=== PATIENT | male | born 1950 | race Caucasian/White ===

== ENCOUNTER 2021-07-12 11:01 | Outpatient (REF) | payer MEDICARE, OTHER, SELFPAY ==
[2021-07-12 12:48] LABS: Prostate Specific Antigen 4.27 ng/mL (<0.05-4.0)
== END 2021-07-12 11:02 | disposition home or self-care (01) ==
LOC: HO.LAB 11:01
PROVIDERS: PCP Internal Medicine; Visit Provider Nurse Practitioner Family
DX: Z12.5 Encounter for screening for malignant neoplasm of prostate (principal)
CPT/HCPCS: 36415; 84153

== ENCOUNTER 2021-08-09 08:40 | Outpatient (REF) | payer MEDICARE, OTHER, SELFPAY ==
[2021-08-09 08:55] LABS: MANUAL DIFF FLAG NO
[2021-08-09 09:57] LABS: Basophils Percent Auto 0.4 % (0-2); Eosinophils Absolute Auto 0.5 X10*3/uL (0.0-0.4); Eosinophils Percent Auto 4.8 % (0-4); Hematocrit 40.8 % (42.0-52.0); Hemoglobin 12.8 g/dl (14.0-18.0); Imm Gran Abs Auto 0.06 X10*3/uL (0.00-0.03); Imm Gran Pct Auto 0.6 % (0.0-0.4); Lymphocytes Absolute Auto 2.4 X10*3/uL (1.2-4.9); Lymphocytes Percent Auto 22.5 % (20-40); Mean Corpuscular HGB Conc 31.4 g/dl (31.0-36.0); Mean Corpuscular Hemoglobin 27.2 pg (27.0-33.0); Mean Corpuscular Volume 86.6 fL (80.0-98.0); Mean Platelet Volume 12.5 fL (9.4-12.4); Monocytes Absolute Auto 1.2 X10*3/uL (0.1-1.2); Monocytes Percent Auto 10.8 % (2-11); Neutrophils Absolute Auto 6.6 x10*3/uL (2.0-8.3); Neutrophils Percent Auto 60.9 % (45-73); Platelet Count 233 X10*3/uL (160-400); Red Blood Count 4.71 X10*6/uL (4.60-5.80); Red Cell Distribution Width 13.3 % (11.0-16.0); White Blood Count 10.8 X10*3/uL (4.8-10.8)
[2021-08-09 10:12] LABS: Estimated Average Glucose 108 mg/dL; Hemoglobin A1c % 5.4 %
[2021-08-09 10:37] LABS: Alanine Aminotransferase 14 U/L (0-40); Albumin Level 4.2 g/dL (3.5-5.0); Alkaline Phosphatase 58 U/L (39-117); Anion Gap 14 (12-20); Aspartate Amino Transferase 19 U/L (5-37); Bilirubin Total 0.5 mg/dL (0.0-1.0); Blood Urea Nitrogen 32 mg/dL (9-16); Calcium 9.3 mg/dL (8.4-10.2); Carbon Dioxide 25 mmol/L (22-29); Chloride 107 mmol/L (96-108); Cholesterol 163 mg/dL; Estimated Glomerular Filt Rate 45; Glucose Fasting 119 mg/dL (60-99); HDL Cholesterol 32 mg/dL; LDL Cholesterol Calculated 112 mg/dl; Potassium 4.8 mmol/L (3.3-5.1); Sodium 141 mmol/L (135-145); Total Protein 7.1 g/dL (6.5-8.0); Triglycerides 95 mg/dL
[2021-08-09 10:47] LABS: Thyroid Stimulating Hormone 2.36 uIU/mL (0.32-4.0)
[2021-08-09 11:28] LABS: Creatinine Urine 107.15 mg/dL; Microalbum/Creatinine Ratio Ur 9.3 ug/mg cr
== END 2021-08-09 08:41 | disposition home or self-care (01) ==
LOC: HO.LAB 08:40
PROVIDERS: PCP Internal Medicine; Visit Provider Internal Medicine
DX: Z00.00 Encounter for general adult medical examination without abnormal findings (principal); E11.9 Type 2 diabetes mellitus without complications; E03.9 Hypothyroidism, unspecified
CPT/HCPCS: 36415; 80053; 80061; 82043; 83036; 84443; 85025

== ENCOUNTER 2022-05-02 12:05 | Emergency (ER) | payer MEDICARE, OTHER, SELFPAY ==
--- NOTE | ~2022-05-02 | XR_ITS ---
EXAMINATION: XR WRIST, RIGHT CLINICAL INFORMATION: Right wrist injury COMPARISON: None TECHNIQUE: PA, lateral, oblique, and scaphoid views of the right wrist. FINDINGS: No acute fracture line or dislocation. There is soft tissue swelling along the dorsal wrist and hand. A tiny calcification or bone fragment projects along the dorsal aspect of the carpometacarpal joints of the lateral projection, which may represent a degenerative calcification or sequela of prior avulsive injury, exact age uncertain. Similar finding adjacent to the radial margin of the trapezium. Joint spaces the wrist are maintained. Scapholunate interval is preserved. Small osteophytes at the first CMC joint compatible with mild osteoarthritis. Atherosclerotic vascular calcifications noted. 4 mm linear metallic foreign body is seen in the soft tissues along the radial aspect of the distal second metacarpal. XR/XR wrist RT min 3V IMPRESSION: 1. No acute fracture or dislocation. 2. Soft tissue swelling along the dorsal wrist and hand. Tiny calcification overlying the dorsal carpometacarpal joints of the lateral view, may be degenerative or sequela of an avulsive injury, exact acuity uncertain. 3. Small 4 mm metallic foreign body.
[2022-05-02 14:06] VITALS: BP 143/60; PULSE 73; RESP 20; TEMP 36.7; O2SAT 99; BMI 28.5
--- NOTE | 2022-05-02 15:48 | ED_ITS ---
HPI - Extremity Problem General Chief complaint: Extremity Injury, Upper Stated complaint: pain in L wrist Time Seen by Provider: 05/02/22 15:44 Source: patient Mode of arrival: ambulatory Limitations: no limitations History of Present Illness HPI Narrative: 72-year-old male with history of HTN, HLD, GERD, DM who presents to the ER for evaluation of right wrist pain for the last couple of days. He reports earlier in the week he was using a wrench to remove a log not from his truck when he slipped and his right wrist bent underneath. He had pain in the dorsal portion of his right wrist, worse with palpation and range of motion of the wrist. He has been applying ice and using a topical cream with some improvement. He had some ongoing pain today so decided to come to the ER for evaluation. He is right-hand dominant. He denies any open wounds or cuts from the incident. He denies any numbness, tingling, weakness. MD Complaint: joint pain Onset (ago): day(s) (4) Pain Consistency: constant Location: right and upper extremity Severity scale (1-10): 4 Quality: aching Radiation: none Relieving factors: cold therapy and rest Exacerbating factors: range of motion and palpation Associated symptoms: denies other symptoms Related Data Previous Rx's Medication Instructions Recorded lovastatin 20 mg tablet 20 mg PO DAILY #90 tabs 05/02/21 triamcinolone acetonide 0.5 % 1 appl topical TID #15 grams 05/09/21 topical cream lisinopril 40 mg tablet 40 mg PO DAILY #90 tabs 06/24/21 omeprazole 20 mg capsule,delayed 20 mg PO DAILY #90 caps 06/24/21 release cetirizine 10 mg tablet 10 mg PO DAILY PRN allergy 10/14/21 symptoms #90 tabs amlodipine 10 mg tablet 10 mg PO DAILY #90 tabs 10/30/21 hydrochlorothiazide 25 mg tablet 25 mg PO DAILY #90 tabs 10/30/21 glipizide 2.5 mg tablet, extended 2.5 mg PO .EVERY OTHER DAY #30 tabs 03/14/22 release 24 hr Allergies Allergy/AdvReac Type Severity Reaction Status Date / Time No Known Allergies Allergy Verified 11/22/21 09:57 Review of Systems Review of Systems: Constitutional: No Fever, No Chills Cardiovascular: No Chest Pain, No SOB Musculoskeletal: + joint pain, No Myalgias Skin: No Skin Lesions, No rash Neuro: No Weakness, No Numbness Heme/Lymph: No Bruising, No Lymphadenopathy PMFSH Past Medical History Medical History (Updated 05/02/22 @ 15:58 by VILMA Lau) Diabetes mellitus with coincident hypertension Hypertension Surgical History History of cataract surgery History of drainage of abscess Family History Family History Father Alzheimers disease Mother Diabetes Brother No problems noted. Sister No problems noted. Son No problems noted. Social History Social History Housing: House Alcohol intake: never Patient Tobacco Use Status: Former Tobacco user Tobacco use type: Cigarette e-Cigarette/Vaping Use: Never Used Second Hand Smoke Exposure: No service: Yes Current occupational status: retired Cognitive needs: No Hearing needs: No Vision needs: No Physical Exam Vital Signs: Vital Signs: Last Vital Signs Temp 98.1 F 05/02/22 14:06 Pulse 73 05/02/22 14:06 Resp 20 05/02/22 14:06 BP 143/60 H 05/02/22 14:06 Pulse Ox 99 05/02/22 14:06 O2 Del Method 05/02/22 14:06 BMI result Body Mass Index 28.5 Appearance: Alert. Oriented X3. No acute distress. HEENT: normal inspection CVS: Normal heart rate and rhythm. Pulses normal. Respiratory: No respiratory distress. Skin: Skin warm and dry. Normal skin color. Normal skin turgor. No rashes. Extremities: Right hand with minimal dorsal swelling, mild dorsal right wrist swelling. Normal range of motion with pain upon flexion. Mild tenderness of the dorsal wrist. No point tenderness. Normal range of motion. Normal strength. No tenderness of the metacarpals. Neurovascularly intact distally. 2+ radial pulse. No open wounds on the dorsum of the hand. Neuro: Oriented X 3. No motor deficit. No sensory deficit. 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 He is right-hand dominant. He denies any numbness, weakness, tingling. X-ray does not show any acute fracture dislocation. There is some soft tissue swelling along the dorsal wrist and hand which is evident on examination. There is a small 4 mm metallic foreign body at the base of the 1st metacarpal. There is no open wounds over this area. It is palpable and mobile. Does not appear to be new. Will not excise today. It is chronic. No infection. Patient placed in a volar velcro wrist splint with improvement in his pain. He was advised to take anti-inflammatories and Tylenol for pain. He will ice, and elevate. He will follow-up with orthopedics if his pain is not improved with conservative measures. He is stable for discharge home. Patient agrees with plan. Discharge Plan Discharge Clinical Impression: Sprain and strain of wrist Patient Disposition: Home, Self-Care Instructions: Wrist Sprain (ED) Additional Instructions: Your x-ray today did not show any acute fractures. Further applied wrist splint as needed for pain and discomfort. Recommend continuing to ice and elevate. Limit use of the right hand until the pain is improved. Take Motrin and Tylenol as needed for pain Follow-up with your doctor. If you are still having pain in 1 week, recommend following up with orthopedics for further evaluation. Name and number below. If you develop new or worsening symptoms call 911 or come back to the ER for further evaluation. Prescriptions: No Action lovastatin 20 mg tablet 20 mg PO DAILY Qty: 90 8RF omeprazole 20 mg capsule,delayed release(DR/EC) 20 mg PO DAILY Qty: 90 8RF lisinopril 40 mg tablet 40 mg PO DAILY Qty: 90 8RF cetirizine 10 mg tablet 10 mg PO DAILY PRN (Reason: allergy symptoms) Qty: 90 8RF hydrochlorothiazide 25 mg tablet 25 mg PO DAILY Qty: 90 8RF amlodipine 10 mg tablet 10 mg PO DAILY Qty: 90 8RF glipizide 2.5 mg tablet extended release 24 hr 2.5 mg PO .EVERY OTHER DAY Qty: 30 8RF triamcinolone acetonide 0.5 % cream 1 appl topical TID Qty: 15 2RF Referrals: Jose Juan Quijano MD [Physician] - (right wrist pain s/p injury)
== END 2022-05-02 16:05 | disposition home or self-care (01) ==
PROVIDERS: Emergency Provider Emergency Medicine; PCP Internal Medicine
DX: S63.501A Unspecified sprain of right wrist, initial encounter (principal); M25.531 Pain in right wrist; Y33.XXXA Other specified events, undetermined intent, initial encounter; Y93.9 Activity, unspecified; Y92.9 Unspecified place or not applicable; Y99.9 Unspecified external cause status; Z79.899 Other long term (current) drug therapy
CPT/HCPCS: 29125; 73110; 99282; 99283

== ENCOUNTER 2022-12-12 07:07 | Outpatient (REF) | payer MEDICARE, OTHER, SELFPAY ==
[2022-12-12 07:21] LABS: MANUAL DIFF FLAG NO
[2022-12-12 07:23] LABS: Basophils Absolute Auto 0.1 X10*3/uL (0.0-0.2); Basophils Percent Auto 0.7 % (0-2); Eosinophils Absolute Auto 0.5 X10*3/uL (0.0-0.4); Eosinophils Percent Auto 5.6 % (0-4); Hematocrit 37.1 % (42.0-52.0); Hemoglobin 11.9 g/dl (14.0-18.0); Imm Gran Abs Auto 0.04 X10*3/uL (0.00-0.03); Imm Gran Pct Auto 0.5 % (0.0-0.4); Lymphocytes Absolute Auto 3.2 X10*3/uL (1.2-4.9); Lymphocytes Percent Auto 38.7 % (20-40); Mean Corpuscular HGB Conc 32.1 g/dl (31.0-36.0); Mean Corpuscular Hemoglobin 27.7 pg (27.0-33.0); Mean Corpuscular Volume 86.5 fL (80.0-98.0); Mean Platelet Volume 11.2 fL (9.4-12.4); Monocytes Absolute Auto 0.9 X10*3/uL (0.1-1.2); Monocytes Percent Auto 11.3 % (2-11); Neutrophils Absolute Auto 3.5 x10*3/uL (2.0-8.3); Neutrophils Percent Auto 43.2 % (45-73); Platelet Count 247 X10*3/uL (160-400); Red Blood Count 4.29 X10*6/uL (4.60-5.80); Red Cell Distribution Width 13.1 % (11.0-16.0); White Blood Count 8.2 X10*3/uL (4.8-10.8)
[2022-12-12 07:34] LABS: Estimated Average Glucose 117 mg/dL; Hemoglobin A1c % 5.7 %
[2022-12-12 08:15] LABS: Alanine Aminotransferase 11 U/L (0-40); Albumin Level 3.9 g/dL (3.5-5.0); Alkaline Phosphatase 65 U/L (39-117); Anion Gap 13 (12-20); Aspartate Amino Transferase 18 U/L (5-37); Bilirubin Total 0.7 mg/dL (0.0-1.0); Blood Urea Nitrogen 31 mg/dL (9-16); Calcium 8.7 mg/dL (8.4-10.2); Carbon Dioxide 26 mmol/L (22-29); Chloride 108 mmol/L (96-108); Cholesterol 143 mg/dL; Estimated Glomerular Filt Rate 41; Glucose Fasting 104 mg/dL (60-99); HDL Cholesterol 25 mg/dL; LDL Cholesterol Calculated 102 mg/dl; Potassium 4.5 mmol/L (3.3-5.1); Sodium 142 mmol/L (135-145); Total Protein 6.5 g/dL (6.5-8.0); Triglycerides 83 mg/dL
[2022-12-12 08:20] LABS: Thyroid Stimulating Hormone 2.72 uIU/mL (0.32-4.0)
[2022-12-12 09:37] LABS: Creatinine Urine 157.45 mg/dL; Microalbum/Creatinine Ratio Ur 16.5 ug/mg cr
== END 2022-12-12 07:08 | disposition home or self-care (01) ==
LOC: HO.LAB 07:07
PROVIDERS: PCP Internal Medicine; Visit Provider Internal Medicine
DX: N28.9 Disorder of kidney and ureter, unspecified (principal); D64.9 Anemia, unspecified; E03.9 Hypothyroidism, unspecified; E78.5 Hyperlipidemia, unspecified; E11.69 Type 2 diabetes mellitus with other specified complication; E66.01 Morbid (severe) obesity due to excess calories; E11.65 Type 2 diabetes mellitus with hyperglycemia
CPT/HCPCS: 36415; 80053; 80061; 82043; 83036; 84443; 85025

== ENCOUNTER 2023-03-16 07:04 | Outpatient (REF) | payer MEDICARE, OTHER, SELFPAY | END 2023-03-16 07:05 | disposition home or self-care (01) | LOC: HO.LAB 07:04 | PROVIDERS: PCP Internal Medicine; Visit Provider Internal Medicine | DX: Z00.00 Encounter for general adult medical examination without abnormal findings (principal); Z12.5 Encounter for screening for malignant neoplasm of prostate; E78.5 Hyperlipidemia, unspecified; R73.9 Hyperglycemia, unspecified | CPT/HCPCS: 36415; 80061; 82947; 83036; 84153 ==

== ENCOUNTER 2023-03-19 09:31 | Outpatient (AMB) | payer MEDICARE, SELFPAY ==
[2023-03-19 09:34] VITALS: BP 126/70; PULSE 73; O2SAT 96; BMI 27.6
--- NOTE | 2023-03-19 09:34 | MHC.PC.OV ---
Vital Signs 03/19/23 09:34 Height 5 ft 7 in Weight 176 lb 2 oz BMI 27.6 BP 126/70 Blood Pressure Location Lt brachial Position Sitting Pulse 73 Pulse Source Pulse Oximeter Pulse Oximetry (%) 96 Oxygen Delivery Method Room Air Intake Visit Reasons: 3 month f/u Casing Blower Required: No Accompanied by: Self / Same As Patient Allergies No Known Allergies Allergy (Verified 03/19/23 09:35) Medication List - Last Reconciled 03/19/23 by Ricky Lopez MD amlodipine 10 mg PO DAILY cetirizine 10 mg PO DAILY PRN glipizide ER 2.5 mg PO .EVERY OTHER DAY hydrochlorothiazide 25 mg PO DAILY lisinopril 40 mg PO DAILY lovastatin 20 mg PO DAILY omeprazole 20 mg PO DAILY triamcinolone acetonide 0.5% 1 appl topical TID Tobacco use date assessed: 03/19/23 Fall risk assessment: No Falls in past year Last assessed Fall Risk: 03/19/23 Dental Screening Dental Screen Date: 03/19/23 Did you have a dental visit in the last 12 months?: No Did you have a dental problem in the last 6 months where you did not have access to dental care?: No Was dental information given to patient?: No HPI 3 month f/u HPI Aggravating or associated factors DM HTN and hyperlipidemia; doing well; stable COUNT INCLUDES THE [facility] Medical History (Updated 09/15/22 @ 13:21 by Ricky Lopez MD) Diabetes mellitus with coincident hypertension Hypertension Surgical History History of cataract surgery History of drainage of abscess Family History Father Alzheimers disease Mother Diabetes Brother No problems noted. Sister No problems noted. Son No problems noted. Social History Housing: House Alcohol intake: never Patient Tobacco Use Status: Former Tobacco user Tobacco use type: Cigarette e-Cigarette/Vaping Use: Never Used Second Hand Smoke Exposure: No service: Yes Current occupational status: retired Cognitive needs: No Hearing needs: No Vision needs: No Questionnaire PHQ-9 Over the last 2 weeks, how often have you been bothered by any of the following problems? 1. Little interest or pleasure in doing things: not at all 2. Feeling down, depressed, or hopeless: not at all 3. Trouble falling or staying asleep, or sleeping too much: not at all 4. Feeling tired or having little energy: not at all 5. Poor appetite or overeating: not at all 6. Feeling bad about yourself - or that you are a failure or have let yourself or your family down: not at all 7. Trouble concentrating on things, such as reading the newspaper or watching television: not at all 8. Moving or speaking so slowly that other people could have noticed. Or the opposite - being so fidgety or restless that you have been moving around a lot more than usual: not at all 9. Thoughts that you would be better off or of hurting yourself in some way: not at all Total score: 0 Source: Developed by Drs. Angel Witt, Jayla Brunson, Pranay Sewell and colleagues, with an educational roshan from [employer]. Thrive Questionnaire Date Thrive assessed: 03/19/23 I am a: Patient What is your living situation today?: I have a steady place to live Within the past 12 months, did the food you bought not last and you didn't have the money to get more?: Never true Within the past 12 months, did you worry whether your food would run out before you got money to buy more?: Never true Do you have trouble paying for medicines?: No Do you have trouble getting transportation to medical appointments?: No Do you have trouble paying your heating and electricity bill?: No Do you have trouble taking care of your child, family member or friend?: No Do you have trouble with day-to-day activities such as bathing, preparing meals, shopping, managing finances, etc.?: No Are you currently unemployed and looking for a job?: No Are you interested in more education?: No Please select the resources that you would like help with: None Currently or been in a relationship where the following occur: no concerns reported AUDIT C Alcohol Use Questionnaire (AUDIT-C) 1. How often do you have a drink containing alcohol?: Never Total Score: 0 Score Reviewed/Action Taken: Yes CHUCK-7 AMB Questionnaire CHUCK-7 Date CHUCK - 7 assessed: 03/19/23 Feeling nervous, anxious, or on edge: 0 = Not at all Not being able to stop or control worryin = Not at all Worrying too much about different things: 0 = Not at all Trouble relaxin = Not at all Being so restless that it is hard to sit still: 0 = Not at all Becoming easily annoyed or irritable: 0 = Not at all Feeling afraid as if something awful might happen: 0 = Not at all Total CHUCK-7 score (0-4 normal; 5-9 mild; 10-14 moderate; 15-21 severe): 0 Source: Developed by Drs. Angel Witt, Jayla Brunson, Pranay Sewell and colleagues, with an educational roshan from [employer]. Review of Systems Const Denies chills, Denies headache(s) and Denies weight loss ENT Denies headache(s) Card Denies chest pain, Denies syncope, Denies irregular heart rhythm and Denies dyspnea Resp Denies chest congestion, Denies cough and Denies dyspnea GI Denies abdominal pain, Denies change in stool character, Denies nausea and Denies vomiting Musc Denies deformity and Denies joint swelling Neuro Denies syncope and Denies headache(s) Physical exam (Primary Care) Vital Signs: Last Vital Signs Pulse 73 03/19/23 09:34 BP 126/70 03/19/23 09:34 Pulse Ox 96 03/19/23 09:34 Oxygen Delivery Method Room Air 03/19/23 09:34 BMI result Body Mass Index 27.6 Tobacco/Smoking Status: Tobacco use Status Tobacco use date assessed 03/19/23 03/19/23 09:39 Patient Tobacco Use Status Former Tobacco user 03/19/23 09:39 Tobacco use type Cigarette 03/19/23 09:39 e-Cigarette/Vaping Use Never Used 03/19/23 09:39 PHQ-9: PHQ-9 Score PHQ-9: Total score 0 03/19/23 09:39 Thrive Assessment: Date of Thrive Assessment Date Thrive assessed 03/19/23 03/19/23 09:39 Currently or been in a relationship where the following occur: no concerns reported Const General: cooperative, healthy appearing and comfortable Resp Effort & Inspection: normal respiratory effort Auscultation: clear to auscultation bilaterally Percussion: percussion normal Cardio Jugular venous distension: no JVD Rate: regular rate Rhythm: regular rhythm GI Inspection: Yes normal to inspection Assessment and Plan Assessment & Plan (1) Diabetes mellitus with coincident hypertension: Code(s): E11.9 - Type 2 diabetes mellitus without complications; I10 - Essential (primary) hypertension Plan: stable; same rx (2) Hyperlipidemia: Code(s): E78.5 - Hyperlipidemia, unspecified Plan: stable; same rx (3) Hypertension: Code(s): I10 - Essential (primary) hypertension Plan: stable; same rx Orders: Orders Glucose Fasting Today R73.9 - Hyperglycemia, unspecified Hemoglobin A1c Today R73.9 - Hyperglycemia, unspecified Lipid Panel Today E78.5 - Hyperlipidemia, unspecified Coding Level of Care Code Est Pt Level 4 (57603) Diagnoses Diabetes mellitus with coincident hypertension E11.9; I10 Hyperlipidemia E78.5 Hypertension I10
== END 2023-03-19 09:55 | disposition home or self-care (01) ==
PROVIDERS: Visit Provider Internal Medicine
DX: E11.9 Type 2 diabetes mellitus without complications (principal); I10 Essential (primary) hypertension; E78.5 Hyperlipidemia, unspecified
CPT/HCPCS: 99214

== ENCOUNTER 2023-06-18 07:47 | Outpatient (REF) | payer MEDICARE, OTHER, SELFPAY ==
[2023-06-18 09:12] LABS: Estimated Average Glucose 108 mg/dL; Hemoglobin A1c % 5.4 % (<6.0)
[2023-06-18 09:35] LABS: Cholesterol 146 mg/dL (<200); Glucose Fasting 103 mg/dL (60-99); HDL Cholesterol 30 mg/dL (>40); LDL Cholesterol Calculated 102 mg/dL (<100); Triglycerides 71 mg/dL (<150)
== END 2023-06-18 07:48 | disposition home or self-care (01) ==
LOC: HO.LAB 07:47
PROVIDERS: PCP Internal Medicine; Visit Provider Internal Medicine
DX: R73.9 Hyperglycemia, unspecified (principal); E78.5 Hyperlipidemia, unspecified
CPT/HCPCS: 36415; 80061; 82947; 83036

== ENCOUNTER 2023-06-19 09:47 | Outpatient (AMB) | payer MEDICARE, SELFPAY ==
[2023-06-19 09:48] VITALS: BP 138/66; PULSE 756; O2SAT 98; BMI 27.4
--- NOTE | 2023-06-19 09:48 | MHC.PC.OV ---
Vital Signs 06/19/23 09:48 Height 5 ft 7 in Weight 175 lb BMI 27.4 BP 138/66 Blood Pressure Location Lt brachial Position Sitting Pulse 756 H Pulse Source Pulse Oximeter Pulse Oximetry (%) 98 Oxygen Delivery Method Room Air Intake Visit Reasons: 3 month f/u Allergies No Known Allergies Allergy (Verified 06/19/23 09:48) Medication List - Last Reconciled 06/19/23 by Ricky Lopez MD amlodipine 10 mg PO DAILY cetirizine 10 mg PO DAILY PRN glipizide ER 2.5 mg PO .EVERY OTHER DAY hydrochlorothiazide 25 mg PO DAILY lisinopril 40 mg PO DAILY lovastatin 20 mg PO DAILY omeprazole 20 mg PO DAILY triamcinolone acetonide 0.5% 1 appl topical TID Tobacco use date assessed: 03/19/23 Fall risk assessment: No Falls in past year Last assessed Fall Risk: 06/19/23 Dental Screening Dental Screen Date: 06/19/23 Did you have a dental visit in the last 12 months?: No Did you have a dental problem in the last 6 months where you did not have access to dental care?: No Was dental information given to patient?: Patient has dentist HPI 3 month f/u HPI Details HTN hyperlip and DM; compliant; labs fine [facility] Medical History Diabetes mellitus with coincident hypertension Hypertension Surgical History History of drainage of abscess History of cataract surgery Family History Father Alzheimers disease Mother Diabetes Brother No problems noted. Sister No problems noted. Son No problems noted. Social History Housing: House Alcohol intake: never Patient Tobacco Use Status: Former Tobacco user Tobacco use type: Cigarette e-Cigarette/Vaping Use: Never Used Second Hand Smoke Exposure: No service: Yes Current occupational status: retired Cognitive needs: No Hearing needs: No Vision needs: No Questionnaire PHQ-9 Over the last 2 weeks, how often have you been bothered by any of the following problems? 1. Little interest or pleasure in doing things: not at all 2. Feeling down, depressed, or hopeless: not at all 3. Trouble falling or staying asleep, or sleeping too much: not at all 4. Feeling tired or having little energy: not at all 5. Poor appetite or overeating: not at all 6. Feeling bad about yourself - or that you are a failure or have let yourself or your family down: not at all 7. Trouble concentrating on things, such as reading the newspaper or watching television: not at all 8. Moving or speaking so slowly that other people could have noticed. Or the opposite - being so fidgety or restless that you have been moving around a lot more than usual: not at all 9. Thoughts that you would be better off or of hurting yourself in some way: not at all Total score: 0 Source: Developed by Drs. Angel Witt, Jayla Brunson, Pranay Sewell and colleagues, with an educational roshan from [employer]. Thrive Questionnaire Date Thrive assessed: 03/19/23 AUDIT C Alcohol Use Questionnaire (AUDIT-C) 1. How often do you have a drink containing alcohol?: Never Total Score: 0 Score Reviewed/Action Taken: Yes CHUCK-7 AMB Questionnaire CHUCK-7 Date CHUCK - 7 assessed: 03/19/23 Source: Developed by Drs. Angel Witt, Jayla Brunson, Pranay Sewell and colleagues, with an educational roshan from [employer]. Review of Systems Const Denies chills, Denies headache(s) and Denies weight loss ENT Denies headache(s) Card Denies chest pain, Denies syncope, Denies irregular heart rhythm and Denies dyspnea Resp Denies chest congestion, Denies cough and Denies dyspnea GI Denies abdominal pain, Denies change in stool character, Denies nausea and Denies vomiting Musc Denies deformity and Denies joint swelling Neuro Denies syncope and Denies headache(s) Physical exam (Primary Care) Vital Signs: Last Vital Signs Pulse 756 H 06/19/23 09:48 BP 138/66 06/19/23 09:48 Pulse Ox 98 06/19/23 09:48 Oxygen Delivery Method Room Air 06/19/23 09:48 BMI result Body Mass Index 27.4 Tobacco/Smoking Status: Tobacco use Status Tobacco use date assessed 03/19/23 06/19/23 09:52 Patient Tobacco Use Status Former Tobacco user 06/19/23 09:52 Tobacco use type Cigarette 06/19/23 09:52 e-Cigarette/Vaping Use Never Used 06/19/23 09:52 PHQ-9: PHQ-9 Score PHQ-9: Total score 0 06/19/23 09:52 Thrive Assessment: Date of Thrive Assessment Date Thrive assessed 03/19/23 06/19/23 09:52 Const General: cooperative, comfortable, no acute distress and alert Neck Neck: Yes no lymphadenopathy Thyroid: Thyroid normal Resp Effort & Inspection: normal respiratory effort Auscultation: clear to auscultation bilaterally Percussion: percussion normal Cardio Jugular venous distension: no JVD Palpation: normal PMI Rate: regular rate Rhythm: regular rhythm Heart sounds: S1 normal heart sound present and S2 normal heart sound present GI Inspection: Yes normal to inspection Palpation (GI): No hepatosplenomegaly present Skin General skin exam: no rashes or lesions noted Extrem General: Yes no clubbing, cyanosis or edema Assessment and Plan Assessment & Plan (1) Diabetes mellitus with coincident hypertension: Code(s): E11.9 - Type 2 diabetes mellitus without complications; I10 - Essential (primary) hypertension Plan: stable; same rx (2) Hyperlipidemia: Code(s): E78.5 - Hyperlipidemia, unspecified Plan: stable; same rx (3) Hypertension: Code(s): I10 - Essential (primary) hypertension Plan: stable; same rx Orders: Orders Complete Blood Count Auto Diff Today D64.9 - Anemia, unspecified Microalbumin, Random (w Creat) Today E11.69 - Type 2 diabetes mellitus with other specified complication, E66.01 - Morbid (severe) obesity due to excess calories Lipid Panel Today E78.5 - Hyperlipidemia, unspecified Comprehensive [place]. Panel Fast Today N28.9 - Disorder of kidney and ureter, unspecified Coding Level of Care Code Est Pt Level 4 (02587) Diagnoses Diabetes mellitus with coincident hypertension E11.9; I10 Hyperlipidemia E78.5 Hypertension I10
== END 2023-06-19 10:01 | disposition home or self-care (01) ==
PROVIDERS: PCP Internal Medicine; Visit Provider Internal Medicine
DX: E11.9 Type 2 diabetes mellitus without complications (principal); I10 Essential (primary) hypertension; E78.5 Hyperlipidemia, unspecified
CPT/HCPCS: 99214

== ENCOUNTER 2023-09-17 07:17 | Outpatient (REF) | payer MEDICARE, SELFPAY ==
[2023-09-17 07:39] LABS: MANUAL DIFF FLAG NO
[2023-09-17 08:36] LABS: Basophils Absolute Auto 0.1 X10*3/uL (0.0-0.2); Basophils Percent Auto 0.6 % (0-2); Eosinophils Absolute Auto 0.7 X10*3/uL (0.0-0.4); Eosinophils Percent Auto 7.6 % (0-4); Hematocrit 36.2 % (42.0-52.0); Hemoglobin 11.6 g/dl (14.0-18.0); Imm Gran Abs Auto 0.03 X10*3/uL (0.00-0.03); Imm Gran Pct Auto 0.3 % (0.0-0.4); Lymphocytes Absolute Auto 3.2 X10*3/uL (1.2-4.9); Lymphocytes Percent Auto 32.7 % (20-40); Mean Corpuscular Hemoglobin 27.7 pg (27.0-33.0); Mean Corpuscular Volume 86.4 fL (80.0-98.0); Mean Platelet Volume 12.1 fL (9.4-12.4); Monocytes Absolute Auto 1.2 X10*3/uL (0.1-1.2); Monocytes Percent Auto 12.3 % (2-11); Neutrophils Absolute Auto 4.5 x10*3/uL (2.0-8.3); Neutrophils Percent Auto 46.5 % (45-73); Platelet Count 220 X10*3/uL (160-400); Red Blood Count 4.19 X10*6/uL (4.60-5.80); Red Cell Distribution Width 13.4 % (11.0-16.0); White Blood Count 9.6 X10*3/uL (4.8-10.8)
[2023-09-17 09:07] LABS: Creatinine Urine 160.38 mg/dL; Microalbum/Creatinine Ratio Ur 16.2 ug/mg cr (<30)
[2023-09-17 09:11] LABS: Alanine Aminotransferase 9 U/L (0-40); Albumin Level 3.9 g/dL (3.5-5.0); Alkaline Phosphatase 60 U/L (39-117); Anion Gap 13 (12-20); Aspartate Amino Transferase 15 U/L (5-37); Bilirubin Total 0.8 mg/dL (0.0-1.0); Blood Urea Nitrogen 29 mg/dL (9-16); Carbon Dioxide 27 mmol/L (22-29); Chloride 107 mmol/L (96-108); Cholesterol 132 mg/dL (<200); Estimated Glomerular Filt Rate 45; Glucose Fasting 120 mg/dL (60-99); HDL Cholesterol 30 mg/dL (>40); LDL Cholesterol Calculated 84 mg/dL (<100); Potassium 4.4 mmol/L (3.3-5.1); Sodium 143 mmol/L (135-145); Total Protein 6.9 g/dL (6.5-8.0); Triglycerides 91 mg/dL (<150)
== END 2023-09-17 07:18 | disposition home or self-care (01) ==
LOC: HO.LAB 07:17
PROVIDERS: PCP Internal Medicine; Visit Provider Internal Medicine
DX: E11.69 Type 2 diabetes mellitus with other specified complication (principal); E66.01 Morbid (severe) obesity due to excess calories; E78.5 Hyperlipidemia, unspecified; D64.9 Anemia, unspecified; N28.9 Disorder of kidney and ureter, unspecified
CPT/HCPCS: 36415; 80053; 80061; 82043; 82570; 85025

== ENCOUNTER 2023-09-22 10:19 | Outpatient (AMB) | payer MEDICARE, SELFPAY ==
[2023-09-22 10:25] VITALS: BP 140/70; PULSE 82; O2SAT 99; BMI 26.9
--- NOTE | 2023-09-22 10:25 | MHC.PC.OV ---
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 Ribbon Tier: Not Required per policy Accompanied by: Self / Same As Patient Allergies No Known Allergies Allergy (Verified 09/22/23 10:25) Medication List - Last Reconciled 09/22/23 by Ricky Lopez MD amlodipine 10 mg PO DAILY cetirizine 10 mg PO DAILY PRN glipizide ER 2.5 mg PO .EVERY OTHER DAY hydrochlorothiazide 25 mg PO DAILY lisinopril 40 mg PO DAILY lovastatin 20 mg PO DAILY omeprazole 20 mg PO DAILY triamcinolone acetonide 0.5% 1 appl topical TID Tobacco use date assessed: 09/22/23 Fall risk assessment: No Falls in past year Last assessed Fall Risk: 09/22/23 Dental Screening Dental Screen Date: 09/22/23 Did you have a dental visit in the last 12 months?: Yes Did you have a dental problem in the last 6 months where you did not have access to dental care?: No Was dental information given to patient?: Patient has dentist HPI 3 month f/u HPI Details HTN DM and hyperlipidemia; doing well; compliant [facility] Medical History Diabetes mellitus with coincident hypertension Hypertension Surgical History History of drainage of abscess History of cataract surgery Family History Father Alzheimers disease Mother Diabetes Brother No problems noted. Sister No problems noted. Son No problems noted. Social History Housing: House Alcohol intake: never Patient Tobacco Use Status: Former Tobacco user Tobacco use type: Cigarette e-Cigarette/Vaping Use: Never Used Second Hand Smoke Exposure: No service: Yes Current occupational status: retired Cognitive needs: No Hearing needs: No Vision needs: Yes Questionnaire PHQ-9 Over the last 2 weeks, how often have you been bothered by any of the following problems? 1. Little interest or pleasure in doing things: not at all 2. Feeling down, depressed, or hopeless: not at all 3. Trouble falling or staying asleep, or sleeping too much: not at all 4. Feeling tired or having little energy: not at all 5. Poor appetite or overeating: not at all 6. Feeling bad about yourself - or that you are a failure or have let yourself or your family down: not at all 7. Trouble concentrating on things, such as reading the newspaper or watching television: not at all 8. Moving or speaking so slowly that other people could have noticed. Or the opposite - being so fidgety or restless that you have been moving around a lot more than usual: not at all 9. Thoughts that you would be better off or of hurting yourself in some way: not at all Total score: 0 Source: Developed by Drs. Angel Witt, Jayla Brunson, Pranay Sewell and colleagues, with an educational roshan from [employer]. Thrive Questionnaire Date Thrive assessed: 09/22/23 I am a: Patient What is your living situation today?: I have a steady place to live Within the past 12 months, did the food you bought not last and you didn't have the money to get more?: Never true Within the past 12 months, did you worry whether your food would run out before you got money to buy more?: Never true Do you have trouble paying for medicines?: No Do you have trouble getting transportation to medical appointments?: No Do you have trouble paying your heating and electricity bill?: No Do you have trouble taking care of your child, family member or friend?: No Do you have trouble with day-to-day activities such as bathing, preparing meals, shopping, managing finances, etc.?: No Are you currently unemployed and looking for a job?: No Are you interested in more education?: No Please select the resources that you would like help with: None AUDIT C Alcohol Use Questionnaire (AUDIT-C) 1. How often do you have a drink containing alcohol?: Never Total Score: 0 Score Reviewed/Action Taken: Yes CHUCK-7 AMB Questionnaire CHUCK-7 Date CHUCK - 7 assessed: 01/16/24 Feeling nervous, anxious, or on edge: 0 = Not at all Not being able to stop or control worryin = Not at all Worrying too much about different things: 0 = Not at all Trouble relaxin = Not at all Being so restless that it is hard to sit still: 0 = Not at all Becoming easily annoyed or irritable: 0 = Not at all Feeling afraid as if something awful might happen: 0 = Not at all Total CHUCK-7 score (0-4 normal; 5-9 mild; 10-14 moderate; 15-21 severe): 0 Source: Developed by Drs. Angel Witt, Jayla Brunson, Pranay Sewell and colleagues, with an educational roshan from [employer]. Review of Systems Const Denies chills, Denies headache(s) and Denies weight loss ENT Denies headache(s) Card Denies chest pain, Denies syncope, Denies irregular heart rhythm and Denies dyspnea Resp Denies chest congestion, Denies cough and Denies dyspnea GI Denies abdominal pain, Denies change in stool character, Denies nausea and Denies vomiting Musc Denies deformity and Denies joint swelling Neuro Denies syncope and Denies headache(s) Physical exam (Primary Care) Vital Signs: Last Vital Signs Pulse 82 09/22/23 10:25 BP 140/70 H 09/22/23 10:25 Pulse Ox 99 09/22/23 10:25 Oxygen Delivery Method Room Air 09/22/23 10:25 BMI result Body Mass Index 26.9 Tobacco/Smoking Status: Tobacco use Status Tobacco use date assessed 09/22/23 09/22/23 10:27 Patient Tobacco Use Status Former Tobacco user 09/22/23 10:27 Tobacco use type Cigarette 09/22/23 10:27 e-Cigarette/Vaping Use Never Used 09/22/23 10:27 PHQ-9: PHQ-9 Score PHQ-9: Total score 0 09/22/23 10:38 Thrive Assessment: Date of Thrive Assessment Date Thrive assessed 09/22/23 09/22/23 10:27 Const General: cooperative, comfortable, no acute distress and alert Neck Neck: Yes no lymphadenopathy Thyroid: Thyroid normal Resp Effort & Inspection: normal respiratory effort Auscultation: clear to auscultation bilaterally Percussion: percussion normal Cardio Jugular venous distension: no JVD Palpation: normal PMI Rate: regular rate Rhythm: regular rhythm Heart sounds: S1 normal heart sound present and S2 normal heart sound present GI Inspection: Yes normal to inspection Palpation (GI): No hepatosplenomegaly present Skin General skin exam: no rashes or lesions noted Extrem General: Yes no clubbing, cyanosis or edema Results AMB Hemoglobin A1c AMB Hemoglobin A1c 5.8 % Last Edit by JOANN Marvin on 09/22/23 10:39 Results Reviewed Results Reviewed: Laboratory Last Values Hgb A1c (Clinic) 5.8 % (4.0-6.0) 09/22/23 10:27 Assessment and Plan Assessment & Plan (1) Diabetes mellitus with coincident hypertension: Code(s): E11.9 - Type 2 diabetes mellitus without complications; I10 - Essential (primary) hypertension Plan: stable; same rx (2) Hyperlipidemia: Code(s): E78.5 - Hyperlipidemia, unspecified Plan: stable; same rx (3) Hypertension: Code(s): I10 - Essential (primary) hypertension Plan: stable; same rx Orders: Orders AMB Hemoglobin A1c Today E11.9 - Type 2 diabetes mellitus without complications, I10 - Essential (primary) hypertension Lipid Panel Today E78.5 - Hyperlipidemia, unspecified Glucose Fasting Today R73.9 - Hyperglycemia, unspecified Hemoglobin A1c Today R73.9 - Hyperglycemia, unspecified Medications: New triamcinolone acetonide 0.5% 1 appl topical TID 15 grams 3RF amoxicillin-pot clavulanate 500-125 mg (Augmentin) 1 tab PO BID 10 tabs 0RF Coding Level of Care Code Est Pt Level 4 (50952) Diagnoses Diabetes mellitus with coincident hypertension E11.9; I10 Hyperlipidemia E78.5 Hypertension I10
== END 2023-09-22 10:43 | disposition home or self-care (01) ==
PROVIDERS: PCP Internal Medicine; Visit Provider Internal Medicine
DX: E11.69 Type 2 diabetes mellitus with other specified complication (principal); I10 Essential (primary) hypertension; E78.5 Hyperlipidemia, unspecified
CPT/HCPCS: 83036; 99214

== ENCOUNTER 2023-12-21 07:10 | Outpatient (REF) | payer MEDICARE, MEDICAID, SELFPAY ==
[2023-12-21 07:43] LABS: Estimated Average Glucose 117 mg/dL; Hemoglobin A1c % 5.7 % (<6.0)
[2023-12-21 07:45] LABS: Cholesterol 159 mg/dL (<200); Glucose Fasting 117 mg/dL (60-99); HDL Cholesterol 31 mg/dL (>40); LDL Cholesterol Calculated 109 mg/dL (<100); Triglycerides 97 mg/dL (<150)
== END 2023-12-21 07:11 | disposition home or self-care (01) ==
LOC: HO.LAB 07:10
PROVIDERS: PCP Internal Medicine; Visit Provider Internal Medicine
DX: R73.9 Hyperglycemia, unspecified (principal); E78.5 Hyperlipidemia, unspecified
CPT/HCPCS: 36415; 80061; 82947; 83036

== ENCOUNTER 2023-12-23 10:38 | Outpatient (AMB) | payer MEDICARE, MEDICAID, SELFPAY ==
[2023-12-23 10:42] VITALS: BP 132/58; PULSE 71; O2SAT 97; BMI 26.6
--- NOTE | 2023-12-23 10:42 | A.OFFPC_ITS ---
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 Allergies No Known Allergies Allergy (Verified 12/23/23 10:42) Medication List - Last Reconciled 12/23/23 by Ricky Lopez MD amlodipine 10 mg PO DAILY cetirizine 10 mg PO DAILY PRN glipizide ER 2.5 mg PO .EVERY OTHER DAY hydrochlorothiazide 25 mg PO DAILY lisinopril 40 mg PO DAILY lovastatin 20 mg PO DAILY omeprazole 20 mg PO DAILY triamcinolone acetonide 0.5% 1 appl topical TID triamcinolone acetonide 0.5% 1 appl topical TID Tobacco use date assessed: 12/23/23 Fall risk assessment: No Falls in past year Last assessed Fall Risk: 12/23/23 Dental Screening Dental Screen Date: 09/22/23 HPI 3mth f/u HPI Details HTN DM and hyperlipidemia; doing well; compliant [facility] Medical History Diabetes mellitus with coincident hypertension Hypertension Surgical History History of drainage of abscess History of cataract surgery Family History Father Alzheimers disease Mother Diabetes Brother No problems noted. Sister No problems noted. Son No problems noted. Social History Housing: House Alcohol intake: never Patient Tobacco Use Status: Former Tobacco user Tobacco use type: Cigarette e-Cigarette/Vaping Use: Never Used Second Hand Smoke Exposure: No service: Yes Current occupational status: retired Cognitive needs: No Hearing needs: No Vision needs: Yes Questionnaire Thrive Questionnaire Date Thrive assessed: 12/23/23 I am a: Patient What is your living situation today?: I have a steady place to live Within the past 12 months, did the food you bought not last and you didn't have the money to get more?: Never true Within the past 12 months, did you worry whether your food would run out before you got money to buy more?: Never true Do you have trouble paying for medicines?: No Do you have trouble getting transportation to medical appointments?: No Do you have trouble paying your heating and electricity bill?: No Do you have trouble taking care of your child, family member or friend?: No Do you have trouble with day-to-day activities such as bathing, preparing meals, shopping, managing finances, etc.?: No Are you currently unemployed and looking for a job?: No Are you interested in more education?: No Please select the resources that you would like help with: None Currently or been in a relationship where the following occur: no concerns reported THRIVE Score: 0 AUDIT C Alcohol Use Questionnaire (AUDIT-C) 1. How often do you have a drink containing alcohol?: Never 3. How often do you have six or more drinks on one occasion?: Never Total Score: 0 Score Reviewed/Action Taken: Yes CHUCK-7 AMB Questionnaire CHUCK-7 Date CHUCK - 7 assessed: 09/22/23 Source: Developed by Drs. Angel Witt, Jayla Brunson, Pranay Sewell and colleagues, with an educational roshan from [employer]. Review of Systems Const Denies chills, Denies headache(s) and Denies weight loss ENT Denies headache(s) Card Denies chest pain, Denies syncope, Denies irregular heart rhythm and Denies dyspnea Resp Denies chest congestion, Denies cough and Denies dyspnea GI Denies abdominal pain, Denies change in stool character, Denies nausea and Denies vomiting Musc Denies deformity and Denies joint swelling Neuro Denies syncope and Denies headache(s) Physical exam (Primary Care) Vital Signs: Last Vital Signs Pulse 71 12/23/23 10:42 BP 132/58 L 12/23/23 10:42 Pulse Ox 97 12/23/23 10:42 Oxygen Delivery Method Room Air 12/23/23 10:42 BMI result Body Mass Index 26.6 Tobacco/Smoking Status: Tobacco use Status Tobacco use date assessed 12/23/23 12/23/23 10:43 Patient Tobacco Use Status Former Tobacco user 12/23/23 10:43 Tobacco use type Cigarette 12/23/23 10:43 e-Cigarette/Vaping Use Never Used 12/23/23 10:43 Thrive Assessment: Date of Thrive Assessment Date Thrive assessed 12/23/23 12/23/23 10:44 Currently or been in a relationship where the following occur: no concerns reported Const General: cooperative, comfortable, no acute distress and alert Neck Neck: Yes no lymphadenopathy Thyroid: Thyroid normal Resp Effort & Inspection: normal respiratory effort Auscultation: clear to auscultation bilaterally Percussion: percussion normal Cardio Jugular venous distension: no JVD Palpation: normal PMI Rate: regular rate Rhythm: regular rhythm Heart sounds: S1 normal heart sound present and S2 normal heart sound present GI Inspection: Yes normal to inspection Palpation (GI): No hepatosplenomegaly present Skin General skin exam: no rashes or lesions noted Extrem General: Yes no clubbing, cyanosis or edema Assessment and Plan Assessment & Plan (1) Diabetes mellitus with coincident hypertension: Code(s): E11.9 - Type 2 diabetes mellitus without complications; I10 - Essential (primary) hypertension Plan: stable; same rx (2) Hyperlipidemia: Code(s): E78.5 - Hyperlipidemia, unspecified Plan: stable; same rx (3) Hypertension: Code(s): I10 - Essential (primary) hypertension Plan: stable; same rx Orders: Orders Complete Blood Count Auto Diff Today Z13.0 - Encounter for screening for diseases of the blood and blood-forming organs and certain disorders involving the immune mechanism Comprehensive [place]. Panel Fast Today Z13.9 - Encounter for screening, unspecified Lipid Panel Today Z13.220 - Encounter for screening for lipoid disorders Hemoglobin A1c Today R73.9 - Hyperglycemia, unspecified Coding Level of Care Code Est Pt Level 4 (38806) Diagnoses Diabetes mellitus with coincident hypertension E11.9; I10 Hyperlipidemia E78.5 Hypertension I10
== END 2023-12-23 11:00 | disposition home or self-care (01) ==
PROVIDERS: PCP Internal Medicine; Visit Provider Internal Medicine
DX: E11.9 Type 2 diabetes mellitus without complications (principal); I10 Essential (primary) hypertension; E78.5 Hyperlipidemia, unspecified
CPT/HCPCS: 99214

== ENCOUNTER 2024-04-23 07:11 | Outpatient (REF) | payer MEDICARE, MEDICAID, SELFPAY ==
[2024-04-23 07:21] LABS: MANUAL DIFF FLAG NO
[2024-04-23 07:36] LABS: Basophils Absolute Auto 0.1 X10*3/uL (0.0-0.2); Basophils Percent Auto 0.9 % (0-2); Eosinophils Absolute Auto 0.3 X10*3/uL (0.0-0.4); Eosinophils Percent Auto 4.4 % (0-4); Hematocrit 33.9 % (42.0-52.0); Imm Gran Abs Auto 0.02 X10*3/uL (0.00-0.03); Imm Gran Pct Auto 0.3 % (0.0-0.4); Lymphocytes Absolute Auto 2.9 X10*3/uL (1.2-4.9); Lymphocytes Percent Auto 43.8 % (20-40); Mean Corpuscular HGB Conc 32.4 g/dl (31.0-36.0); Mean Corpuscular Hemoglobin 27.3 pg (27.0-33.0); Mean Corpuscular Volume 84.1 fL (80.0-98.0); Mean Platelet Volume 11.4 fL (9.4-12.4); Monocytes Absolute Auto 0.8 X10*3/uL (0.1-1.2); Monocytes Percent Auto 12.6 % (2-11); Neutrophils Absolute Auto 2.5 x10*3/uL (2.0-8.3); Platelet Count 214 X10*3/uL (160-400); Red Blood Count 4.03 X10*6/uL (4.60-5.80); Red Cell Distribution Width 13.8 % (11.0-16.0); White Blood Count 6.7 X10*3/uL (4.8-10.8)
[2024-04-23 07:44] LABS: Estimated Average Glucose 114 mg/dL; Hemoglobin A1c % 5.6 % (<6.0)
[2024-04-23 07:57] LABS: Alanine Aminotransferase 7 U/L (0-40); Albumin Level 4.1 g/dL (3.5-5.0); Alkaline Phosphatase 62 U/L (39-117); Anion Gap 11 (12-20); Aspartate Amino Transferase 17 U/L (5-37); Bilirubin Total 0.5 mg/dL (0.0-1.0); Blood Urea Nitrogen 29 mg/dL (9-16); Calcium 9.7 mg/dL (8.4-10.2); Carbon Dioxide 26 mmol/L (22-29); Chloride 109 mmol/L (96-108); Cholesterol 135 mg/dL (<200); Estimated Glomerular Filt Rate 37; Glucose Fasting 92 mg/dL (60-99); HDL Cholesterol 27 mg/dL (>40); LDL Cholesterol Calculated 88 mg/dL (<100); Potassium 4.4 mmol/L (3.3-5.1); Sodium 142 mmol/L (135-145); Triglycerides 103 mg/dL (<150)
== END 2024-04-23 07:12 | disposition home or self-care (01) ==
LOC: HO.LAB 07:11
PROVIDERS: PCP Internal Medicine; Visit Provider Internal Medicine
DX: Z13.220 Encounter for screening for lipoid disorders (principal); Z13.0 Encounter for screening for diseases of the blood and blood-forming organs and certain disorders involving the immune mechanism; Z13.9 Encounter for screening, unspecified; R73.9 Hyperglycemia, unspecified
CPT/HCPCS: 36415; 80053; 80061; 83036; 85025

== ENCOUNTER 2024-04-26 10:37 | Outpatient (AMB) | payer MEDICARE, MEDICAID, SELFPAY ==
--- NOTE | 2024-04-26 10:49 | A.OFFPC_ITS ---
Vital Signs 04/26/24 10:50 Height 5 ft 7 in Weight 164 lb BMI 25.7 BP 130/66 Blood Pressure Location Lt brachial Position Sitting Pulse 64 Pulse Source Pulse Oximeter Pulse Oximetry (%) 95 Oxygen Delivery Method Room Air Intake Visit Reasons: 4mt f/u Allergies No Known Allergies Allergy (Verified 04/26/24 10:52) Medication List - Last Reconciled 04/26/24 by Ricky Lopez MD amlodipine 10 mg PO DAILY cetirizine 10 mg PO DAILY PRN glipizide ER 2.5 mg PO .EVERY OTHER DAY hydrochlorothiazide 25 mg PO DAILY lisinopril 40 mg PO DAILY lovastatin 20 mg PO DAILY omeprazole 20 mg PO DAILY triamcinolone acetonide 0.5% 1 appl topical TID triamcinolone acetonide 0.5% 1 appl topical TID Tobacco use date assessed: 12/23/23 Fall risk assessment: No Falls in past year Last assessed Fall Risk: 04/26/24 Dental Screening Dental Screen Date: 09/22/23 HPI [facility] f/u HPI Details diabetes hypertension and hyperlipidemia; doing well; compliant and labs fine [facility] Medical History Diabetes mellitus with coincident hypertension Hypertension Surgical History History of drainage of abscess History of cataract surgery Family History Father Alzheimers disease Mother Diabetes Brother No problems noted. Sister No problems noted. Son No problems noted. Social History Housing: House Alcohol intake: never Patient Tobacco Use Status: Former Tobacco user Tobacco use type: Cigarette e-Cigarette/Vaping Use: Never Used Second Hand Smoke Exposure: No service: Yes Current occupational status: retired Cognitive needs: No Hearing needs: No Vision needs: Yes Questionnaire PHQ-9 Over the last 2 weeks, how often have you been bothered by any of the following problems? 1. Little interest or pleasure in doing things: not at all 2. Feeling down, depressed, or hopeless: not at all 3. Trouble falling or staying asleep, or sleeping too much: not at all 4. Feeling tired or having little energy: not at all 5. Poor appetite or overeating: not at all 6. Feeling bad about yourself - or that you are a failure or have let yourself or your family down: not at all 7. Trouble concentrating on things, such as reading the newspaper or watching television: not at all 8. Moving or speaking so slowly that other people could have noticed. Or the opposite - being so fidgety or restless that you have been moving around a lot more than usual: not at all 9. Thoughts that you would be better off or of hurting yourself in some way: not at all Total score: 0 Source: Developed by Drs. Angel Witt, Jayla Brunson, Pranay Sewell and colleagues, with an educational roshan from [employer]. Thrive Questionnaire Date Thrive assessed: 12/23/23 CHUCK-7 AMB Questionnaire CHUCK-7 Date CHUCK - 7 assessed: 09/22/23 Source: Developed by Drs. Angel Witt, Jayla Brunson, Pranay Sewell and colleagues, with an educational roshan from [employer]. Review of Systems Const Denies chills, Denies headache(s) and Denies weight loss ENT Denies headache(s) Card Denies chest pain, Denies syncope, Denies irregular heart rhythm and Denies dyspnea Resp Denies chest congestion, Denies cough and Denies dyspnea GI Denies abdominal pain, Denies change in stool character, Denies nausea and Denies vomiting Musc Denies deformity and Denies joint swelling Neuro Denies syncope and Denies headache(s) Physical exam (Primary Care) Vital Signs: Last Vital Signs Pulse 64 04/26/24 10:50 BP 130/66 04/26/24 10:50 Pulse Ox 95 04/26/24 10:50 Oxygen Delivery Method Room Air 04/26/24 10:50 BMI result Body Mass Index 25.7 Tobacco/Smoking Status: Tobacco use Status Tobacco use date assessed 12/23/23 04/26/24 10:54 Patient Tobacco Use Status Former Tobacco user 04/26/24 10:54 Tobacco use type Cigarette 04/26/24 10:54 e-Cigarette/Vaping Use Never Used 04/26/24 10:54 PHQ-9: PHQ-9 Score PHQ-9: Total score 0 04/26/24 10:54 Thrive Assessment: Date of Thrive Assessment Date Thrive assessed 12/23/23 04/26/24 10:54 Const General: cooperative, comfortable, no acute distress and alert Neck Neck: Yes no lymphadenopathy Thyroid: Thyroid normal Resp Effort & Inspection: normal respiratory effort Auscultation: clear to auscultation bilaterally Percussion: percussion normal Cardio Jugular venous distension: no JVD Palpation: normal PMI Rate: regular rate Rhythm: regular rhythm Heart sounds: S1 normal heart sound present and S2 normal heart sound present GI Inspection: Yes normal to inspection Palpation (GI): No hepatosplenomegaly present Skin General skin exam: no rashes or lesions noted Extrem General: Yes no clubbing, cyanosis or edema Assessment and Plan Assessment & Plan (1) Diabetes mellitus with coincident hypertension: Code(s): E11.9 - Type 2 diabetes mellitus without complications; I10 - Essential (primary) hypertension Plan: stable; same rx (2) Hyperlipidemia: Code(s): E78.5 - Hyperlipidemia, unspecified Plan: stable; same rx (3) Hypertension: Code(s): I10 - Essential (primary) hypertension Plan: stable; same rx Orders: Orders XR shoulder RT min 2V Today M25.519 - Pain in unspecified shoulder Hemoglobin A1c Today R73.9 - Hyperglycemia, unspecified IRON PROFILE Today E61.1 - Iron deficiency Lipid Panel Today Z13.220 - Encounter for screening for lipoid disorders Comprehensive [place]. Panel Fast Today Z13.9 - Encounter for screening, unspecified Thyroid Stimulating Hormone Today Z13.29 - Encounter for screening for other suspected endocrine disorder Microalbumin, Random (w Creat) Today E11.69 - Type 2 diabetes mellitus with other specified complication, E66.01 - Morbid (severe) obesity due to excess calories Coding Level of Care Code Est Pt Level 4 (47310) Diagnoses Diabetes mellitus with coincident hypertension E11.9; I10 Hyperlipidemia E78.5 Hypertension I10
[2024-04-26 10:50] VITALS: BP 130/66; PULSE 64; O2SAT 95; BMI 25.7
== END 2024-04-26 11:04 | disposition home or self-care (01) ==
PROVIDERS: PCP Internal Medicine; Visit Provider Internal Medicine
DX: E11.9 Type 2 diabetes mellitus without complications (principal); I10 Essential (primary) hypertension; E78.5 Hyperlipidemia, unspecified
CPT/HCPCS: 99214

== ENCOUNTER 2024-04-28 10:09 | Outpatient (REF) | payer MEDICARE, MEDICAID, SELFPAY ==
--- NOTE | ~2024-04-28 | XR_ITS ---
EXAMINATION: XR SHOULDER, RIGHT CLINICAL INFORMATION: Right shoulder pain. COMPARISON: None available. TECHNIQUE: AP external rotation, Grashey, scapular Y, and axillary views of the right shoulder. FINDINGS: Moderate osteoarthritis in the right acromioclavicular joint. No fracture. Glenohumeral and acromioclavicular alignment is anatomic with normal joint space. No abnormal soft tissue calcifications. XR/XR shoulder RT min 2V IMPRESSION: Moderate osteoarthritis in the right acromioclavicular joint. No acute osseous findings. Electronically signed by: John Severino MD 05/22/2024 10:38 AM EDT
[2024-04-28 11:02] LABS: Estimated Average Glucose 111 mg/dL; Hemoglobin A1c % 5.5 % (<6.0)
[2024-04-28 11:25] LABS: Alanine Aminotransferase 14 U/L (0-40); Alkaline Phosphatase 77 U/L (39-117); Anion Gap 12 (12-20); Aspartate Amino Transferase 16 U/L (5-37); Bilirubin Total 0.4 mg/dL (0.0-1.0); Blood Urea Nitrogen 29 mg/dL (9-16); Calcium 9.3 mg/dL (8.4-10.2); Carbon Dioxide 26 mmol/L (22-29); Chloride 106 mmol/L (96-108); Cholesterol 152 mg/dL (<200); Estimated Glomerular Filt Rate 48; Glucose Fasting 132 mg/dL (60-99); HDL Cholesterol 35 mg/dL (>40); Iron 77 mcg/dL (45-160); LDL Cholesterol Calculated 91 mg/dL (<100); Percent Iron Saturation 34 % (15-50); Potassium 4.7 mmol/L (3.3-5.1); Sodium 139 mmol/L (135-145); Total Iron Binding Capacity 224 mcg/dL (228-428); Total Protein 7.2 g/dL (6.5-8.0); Triglycerides 130 mg/dL (<150); Unsaturated Iron Binding 147 ug/dL
[2024-04-28 11:43] LABS: Thyroid Stimulating Hormone 2.23 uIU/mL (0.32-4.0)
== END 2024-04-28 10:10 | disposition home or self-care (01) ==
LOC: HO.LAB 10:09
PROVIDERS: PCP Internal Medicine; Visit Provider Internal Medicine
DX: E11.65 Type 2 diabetes mellitus with hyperglycemia (principal); E11.69 Type 2 diabetes mellitus with other specified complication; E66.01 Morbid (severe) obesity due to excess calories; E61.1 Iron deficiency; M25.511 Pain in right shoulder; Z13.29 Encounter for screening for other suspected endocrine disorder; Z13.220 Encounter for screening for lipoid disorders
CPT/HCPCS: 36415; 73030; 80053; 80061; 83036; 83540; 84443

== ENCOUNTER 2024-07-27 10:31 | Outpatient (AMB) | payer MEDICARE, MEDICAID, SELFPAY ==
--- NOTE | 2024-07-27 10:34 | MHC.PC.OV ---
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 Accompanied by: Self / Same As Patient Allergies No Known Allergies Allergy (Verified 07/27/24 10:38) Medication List - Last Reconciled 07/27/24 by Ricky Lopez MD amlodipine 10 mg PO DAILY cetirizine 10 mg PO DAILY PRN glipizide ER 2.5 mg PO .EVERY OTHER DAY hydrochlorothiazide 25 mg PO DAILY lisinopril 40 mg PO DAILY lovastatin 20 mg PO DAILY omeprazole 20 mg PO DAILY triamcinolone acetonide 0.5% 1 appl topical TID triamcinolone acetonide 0.5% 1 appl topical TID Tobacco use date assessed: 12/23/23 Fall risk assessment: No Falls in past year Last assessed Fall Risk: 07/27/24 Dental Screening Dental Screen Date: 07/27/24 Did you have a dental visit in the last 12 months?: Yes Did you have a dental problem in the last 6 months where you did not have access to dental care?: No Was dental information given to patient?: Patient has dentist HPI 3 month f/u HPI Details right sided vervical pain for a month PFSH Medical History Diabetes mellitus with coincident hypertension Hypertension Surgical History History of drainage of abscess History of cataract surgery Family History (Updated 07/27/24 @ 10:34 by JOANN Jarrell) Father Alzheimers disease Mother Diabetes Brother No problems noted. Sister No problems noted. Son No problems noted. Social History Housing: House Alcohol intake: never Patient Tobacco Use Status: Former Tobacco user Tobacco use type: Cigarette e-Cigarette/Vaping Use: Never Used Second Hand Smoke Exposure: No service: Yes Current occupational status: retired Cognitive needs: No Hearing needs: No Vision needs: Yes Questionnaire Thrive Questionnaire Date Thrive assessed: 12/23/23 CHUCK-7 AMB Questionnaire CHUCK-7 Date CHUCK - 7 assessed: 09/22/23 Source: Developed by Drs. Angel Witt, Jayla Brunson, Pranay Sewell and colleagues, with an educational roshan from [employer]. Review of Systems Const Denies chills, Denies headache(s) and Denies weight loss ENT Denies headache(s) Card Denies chest pain, Denies syncope, Denies irregular heart rhythm and Denies dyspnea Resp Denies chest congestion, Denies cough and Denies dyspnea GI Denies abdominal pain, Denies change in stool character, Denies nausea and Denies vomiting Musc Denies deformity and Denies joint swelling Neuro Denies syncope and Denies headache(s) Physical exam (Primary Care) Vital Signs: Last Vital Signs BP 132/64 07/27/24 10:39 BMI result Body Mass Index 25.4 Tobacco/Smoking Status: Tobacco use Status Tobacco use date assessed 12/23/23 07/27/24 10:36 Patient Tobacco Use Status Former Tobacco user 07/27/24 10:36 Tobacco use type Cigarette 07/27/24 10:36 e-Cigarette/Vaping Use Never Used 07/27/24 10:36 Thrive Assessment: Date of Thrive Assessment Date Thrive assessed 12/23/23 07/27/24 10:36 Const General: cooperative, comfortable, no acute distress and alert Neck Neck: Yes no lymphadenopathy Thyroid: Thyroid normal Resp Effort & Inspection: normal respiratory effort Auscultation: clear to auscultation bilaterally Percussion: percussion normal Cardio Jugular venous distension: no JVD Palpation: normal PMI Rate: regular rate Rhythm: regular rhythm Heart sounds: S1 normal heart sound present and S2 normal heart sound present GI Inspection: Yes normal to inspection Palpation (GI): No hepatosplenomegaly present Skin General skin exam: no rashes or lesions noted Extrem General: Yes no clubbing, cyanosis or edema Office Procedures Flu Questionnaire Does the patient have a severe egg allergy?: No Does the patient have severe life threatening allergies?: No Does the patient have a fever or illness today?: No Has the patient ever had Guillain-Moore Syndrome?: No Has the patient ever had any past reaction to a flu shot?: No Results AMB Hemoglobin A1c AMB Hemoglobin A1c 5.4 % Last Edit by JOANN Jarrell on 07/27/24 10:43 Immunizations Fluarix Triv [id number] (PF) 45 mcg (15 mcg x 3)/0.5 mL IM syringe Performing Provider: Ricky Lopez MD [facility] [place] [facility] Administered by: JOANN Jarrell on 07/27/24 10:41 Dose Route Admin Location Dispensed Lot Number Expiration Date NDC Can Dryer 0.5 mL IM Left Deltoid 0.5 mL [id number] 03/06/25 [id number] [employer] VIS Given Date VIS Provided VIS Publication Date 07/27/24 Single Vaccine 21 Eligibility Eligibility Date Funding Source Not [facility] Eligible 07/27/24 Private Results Reviewed Results Reviewed: Laboratory Last Values Hgb A1c (Clinic) 5.4 % (4.0-6.0) 07/27/24 10:33 Coding Level of Care Code Est Pt Level 3 (94180) Diagnoses Neck pain M54.2 Assessment & Plan Assessment & Plan (1) Neck pain: Code(s): M54.2 - Cervicalgia Plan: xr ordered Orders: Orders XR cervical spine 2V Today M54.2 - Cervicalgia Uric Acid Today M10.9 - Gout, unspecified AMB Hemoglobin A1c Today E11.9 - Type 2 diabetes mellitus without complications, I10 - Essential (primary) hypertension Influenza [id number] Immunization Today Z23 - Encounter for immunization Medications: New meloxicam 15 mg PO DAILY 30 tabs 4RF
[2024-07-27 10:39] VITALS: BP 132/64; BMI 25.4
== END 2024-07-27 10:52 | disposition home or self-care (01) ==
PROVIDERS: PCP Internal Medicine; Visit Provider Internal Medicine
DX: E11.9 Type 2 diabetes mellitus without complications (principal); I10 Essential (primary) hypertension; Z23 Encounter for immunization; M54.2 Cervicalgia

== ENCOUNTER → 2024-07-27 10:31 | Outpatient (BNVA) | payer MEDICARE, MEDICAID, SELFPAY | PROVIDERS: PCP Internal Medicine; Visit Provider Internal Medicine | DX: Z23 Encounter for immunization (principal); M54.2 Cervicalgia; E11.9 Type 2 diabetes mellitus without complications | CPT/HCPCS: 83036; 90471; 90656; 99212 ==

== ENCOUNTER 2024-10-27 10:17 | Outpatient (AMB) | payer MEDICARE, MEDICAID, SELFPAY ==
[2024-10-27 10:21] VITALS: BP 124/58; PULSE 76; TEMP 36.2; O2SAT 98; BMI 26.8
--- NOTE | 2024-10-27 10:21 | MHC.PC.OV ---
Vital Signs 10/27/24 10:21 Height 5 ft 7 in Weight 171 lb 6 oz BMI 26.8 BP 124/58 L Blood Pressure Location Lt brachial Position Sitting Pulse 76 Pulse Source Pulse Oximeter Temp 97.1 F Temp Source Temporal Artery Scan Pulse Oximetry (%) 98 Oxygen Delivery Method Room Air Intake Visit Reasons: 3mth f/u [employer] Coordinator Required: No Accompanied by: Self / Same As Patient Allergies No Known Allergies Allergy (Verified 10/27/24 10:24) Medication List - Last Reconciled 10/27/24 by Ricky Lopez MD amlodipine 10 mg PO DAILY cetirizine 10 mg PO DAILY PRN glipizide ER 2.5 mg PO .EVERY OTHER DAY hydrochlorothiazide 25 mg PO DAILY lisinopril 40 mg PO DAILY lovastatin 20 mg PO DAILY meloxicam 15 mg PO DAILY omeprazole 20 mg PO DAILY triamcinolone acetonide 0.5% 1 appl topical TID triamcinolone acetonide 0.5% 1 appl topical TID Tobacco use date assessed: 10/27/24 Dental Screening Dental Screen Date: 07/27/24 HPI 3mth f/u HPI Details hypertension diabetes and hyperlip; compliant with meds; due for labs [facility] Medical History Diabetes mellitus with coincident hypertension Hypertension Surgical History History of drainage of abscess History of cataract surgery Family History Father Alzheimers disease Mother Diabetes Brother No problems noted. Sister No problems noted. Son No problems noted. Social History Housing: House Alcohol intake: never Patient Tobacco Use Status: Former Tobacco user Tobacco use type: Cigarette e-Cigarette/Vaping Use: Never Used Second Hand Smoke Exposure: No service: Yes Current occupational status: retired Cognitive needs: No Hearing needs: No Vision needs: Yes Questionnaire PHQ-9 Over the last 2 weeks, how often have you been bothered by any of the following problems? 1. Little interest or pleasure in doing things: not at all 2. Feeling down, depressed, or hopeless: not at all 3. Trouble falling or staying asleep, or sleeping too much: not at all 4. Feeling tired or having little energy: not at all 5. Poor appetite or overeating: not at all 6. Feeling bad about yourself - or that you are a failure or have let yourself or your family down: not at all 7. Trouble concentrating on things, such as reading the newspaper or watching television: not at all 8. Moving or speaking so slowly that other people could have noticed. Or the opposite - being so fidgety or restless that you have been moving around a lot more than usual: not at all 9. Thoughts that you would be better off or of hurting yourself in some way: not at all Total score: 0 Depression Screening Interpretation: Negative Depression Screening Done: Yes 01496 - PHQ-9 Billing: Yes Source: Developed by Drs. Angel Witt, Jayla Brunson, Pranay Sewell and colleagues, with an educational roshan from [employer]. Thrive Questionnaire Date Thrive assessed: 10/27/24 I am a: Patient What is your living situation today?: I have a steady place to live Within the past 12 months, did the food you bought not last and you didn't have the money to get more?: Never true Within the past 12 months, did you worry whether your food would run out before you got money to buy more?: Never true Do you have trouble paying for medicines?: No Do you have trouble getting transportation to medical appointments?: No Do you have trouble paying your heating and electricity bill?: No Do you have trouble taking care of your child, family member or friend?: No Do you have trouble with day-to-day activities such as bathing, preparing meals, shopping, managing finances, etc.?: No Are you currently unemployed and looking for a job?: No Are you interested in more education?: No Please select the resources that you would like help with: None Currently or been in a relationship where the following occur: No concerns reported THRIVE Score: 0 AUDIT C Alcohol Use Questionnaire (AUDIT-C) 1. How often do you have a drink containing alcohol?: Never 3. How often do you have six or more drinks on one occasion?: Never Total Score: 0 Score Reviewed/Action Taken: Yes CHUCK-7 AMB Questionnaire CHUCK-7 Date CHUCK - 7 assessed: 10/27/24 Feeling nervous, anxious, or on edge: 0 = Not at all Not being able to stop or control worryin = Not at all Worrying too much about different things: 0 = Not at all Trouble relaxin = Not at all Being so restless that it is hard to sit still: 0 = Not at all Becoming easily annoyed or irritable: 0 = Not at all Feeling afraid as if something awful might happen: 0 = Not at all Total CHUCK-7 score (0-4 normal; 5-9 mild; 10-14 moderate; 15-21 severe): 0 Source: Developed by Drs. Angel Witt, Jayla Brunson, Pranay Sewell and colleagues, with an educational roshan from [employer]. CHUCK-7 Assessment Billing CHUCK-7 Assessment Tool: CHUCK-7 Assessment 14927 Review of Systems Const Denies chills, Denies headache(s) and Denies weight loss ENT Denies headache(s) Card Denies chest pain, Denies syncope, Denies irregular heart rhythm and Denies dyspnea Resp Denies chest congestion, Denies cough and Denies dyspnea GI Denies abdominal pain, Denies change in stool character, Denies nausea and Denies vomiting Musc Denies deformity and Denies joint swelling Neuro Denies syncope and Denies headache(s) Physical exam (Primary Care) Vital Signs: Last Vital Signs Temp 97.1 F 10/27/24 10:21 Pulse 76 10/27/24 10:21 BP 124/58 L 10/27/24 10:21 Pulse Ox 98 10/27/24 10:21 Oxygen Delivery Method Room Air 10/27/24 10:21 BMI result Body Mass Index 26.8 Tobacco/Smoking Status: Tobacco use Status Tobacco use date assessed 10/27/24 10/27/24 10:25 Patient Tobacco Use Status Former Tobacco user 10/27/24 10:23 Tobacco use type Cigarette 10/27/24 10:23 e-Cigarette/Vaping Use Never Used 10/27/24 10:23 PHQ-9: PHQ-9 Score PHQ-9: Total score 0 10/27/24 10:25 Depression Screening Interpretation: Negative Thrive Assessment: Date of Thrive Assessment Date Thrive assessed 10/27/24 10/27/24 10:25 Currently or been in a relationship where the following occur: No concerns reported Const General: cooperative, comfortable, no acute distress and alert Neck Neck: Yes no lymphadenopathy Thyroid: Thyroid normal Resp Effort & Inspection: normal respiratory effort Auscultation: clear to auscultation bilaterally Percussion: percussion normal Cardio Jugular venous distension: no JVD Palpation: normal PMI Rate: regular rate Rhythm: regular rhythm Heart sounds: S1 normal heart sound present and S2 normal heart sound present GI Inspection: Yes normal to inspection Palpation (GI): No hepatosplenomegaly present Skin General skin exam: no rashes or lesions noted Extrem General: Yes no clubbing, cyanosis or edema Coding Level of Care Code Est Pt Level 3 (73987) Diagnoses Diabetes mellitus with coincident hypertension E11.9; I10 Additional Codes CHUCK-7 Assessment Billing - CHUCK-7 Assessment Tool: CHUCK-7 Assessment 70843 ([id number]) PHQ-9 - 39304 - PHQ-9 Billing: Yes ([id number]) Assessment & Plan Assessment & Plan (1) Diabetes mellitus with coincident hypertension: Code(s): E11.9 - Type 2 diabetes mellitus without complications; I10 - Essential (primary) hypertension Category: Medical Plan: stable; do labs Medications: New clotrimazole-betamethasone 1-0.05 % 1 appl topical BID 2 weeks 45 grams 0RF
== END 2024-10-27 10:45 | disposition home or self-care (01) ==
PROVIDERS: PCP Internal Medicine; Visit Provider Internal Medicine
DX: E11.9 Type 2 diabetes mellitus without complications (principal); I10 Essential (primary) hypertension

== ENCOUNTER → 2024-10-27 10:17 | Outpatient (BNVA) | payer MEDICARE, MEDICAID, SELFPAY | PROVIDERS: PCP Internal Medicine; Visit Provider Internal Medicine | DX: E11.9 Type 2 diabetes mellitus without complications (principal); I10 Essential (primary) hypertension | CPT/HCPCS: 96127; 99212 ==

== ENCOUNTER 2025-01-26 06:39 | Outpatient (REF) | payer MEDICARE, MEDICAID, SELFPAY ==
[2025-01-26 06:56] LABS: MANUAL DIFF FLAG NO
[2025-01-26 07:20] LABS: Basophils Absolute Auto 0.1 X10*3/uL (0.0-0.2); Basophils Percent Auto 1.1 % (0-2); Eosinophils Absolute Auto 0.4 X10*3/uL (0.0-0.4); Eosinophils Percent Auto 6.2 % (0-4); Hematocrit 35.1 % (42.0-52.0); Hemoglobin 11.5 g/dl (14.0-18.0); Imm Gran Abs Auto 0.04 X10*3/uL (0.00-0.03); Imm Gran Pct Auto 0.6 % (0.0-0.4); Lymphocytes Absolute Auto 2.2 X10*3/uL (1.2-4.9); Lymphocytes Percent Auto 34.6 % (20-40); Mean Corpuscular HGB Conc 32.8 g/dl (31.0-36.0); Mean Corpuscular Hemoglobin 26.9 pg (27.0-33.0); Mean Platelet Volume 11.6 fL (9.4-12.4); Monocytes Absolute Auto 0.9 X10*3/uL (0.1-1.2); Monocytes Percent Auto 13.7 % (2-11); Neutrophils Absolute Auto 2.8 x10*3/uL (2.0-8.3); Neutrophils Percent Auto 43.8 % (45-73); Platelet Count 227 X10*3/uL (160-400); Red Blood Count 4.28 X10*6/uL (4.60-5.80); Red Cell Distribution Width 13.8 % (11.0-16.0); White Blood Count 6.4 X10*3/uL (4.8-10.8)
[2025-01-26 07:46] LABS: Uric Acid 10.3 mg/dL (3.4-7.0)
[2025-01-26 07:50] LABS: Estimated Average Glucose 117 mg/dL; Hemoglobin A1c % 5.7 % (<6.0)
[2025-01-26 07:57] LABS: Alanine Aminotransferase 12 U/L (0-40); Albumin Level 4.2 g/dL (3.5-5.0); Alkaline Phosphatase 73 U/L (39-117); Anion Gap 11 (12-20); Aspartate Amino Transferase 26 U/L (5-37); Bilirubin Total 0.6 mg/dL (0.0-1.0); Blood Urea Nitrogen 21 mg/dL (9-16); Calcium 9.3 mg/dL (8.4-10.2); Carbon Dioxide 27 mmol/L (22-29); Chloride 111 mmol/L (96-108); Cholesterol 126 mg/dL (<200); Estimated Glomerular Filt Rate 46; Glucose Fasting 102 mg/dL (60-99); HDL Cholesterol 32 mg/dL (>40); LDL Cholesterol Calculated 82 mg/dL (<100); Potassium 4.8 mmol/L (3.3-5.1); Sodium 144 mmol/L (135-145); Total Protein 7.3 g/dL (6.5-8.0); Triglycerides 60 mg/dL (<150)
[2025-01-26 08:16] LABS: TSH reflex Free T4 2.82 uIU/mL (0.32-4.0); Vitamin D 25-OH Total 16.5 ng/mL (>30)
[2025-01-26 08:20] LABS: Folate 11.5 ng/mL (> or = 4.0); Vitamin B12 282 pg/mL (200-900)
== END 2025-01-26 06:40 | disposition home or self-care (01) ==
LOC: HO.LAB 06:39
PROVIDERS: Internal Medicine; PCP Internal Medicine; Visit Provider Internal Medicine
DX: D64.9 Anemia, unspecified (principal); E53.8 Deficiency of other specified B group vitamins; E78.00 Pure hypercholesterolemia, unspecified; E11.9 Type 2 diabetes mellitus without complications; E55.9 Vitamin D deficiency, unspecified; M10.9 Gout, unspecified
CPT/HCPCS: 36415; 80053; 80061; 82306; 82607; 82746; 83036; 84443; 84550; 85025

== ENCOUNTER 2025-01-27 14:33 | Outpatient (AMB) | payer MEDICARE, MEDICAID, SELFPAY ==
[2025-01-27 14:49] VITALS: BP 140/66; PULSE 92; TEMP 36.3; O2SAT 97; BMI 25.7
--- NOTE | 2025-01-27 14:49 | MHC.PC.OV ---
Vital Signs 01/27/25 14:49 Height 5 ft 7 in Weight 164 lb 2 oz BMI 25.7 BP 140/66 H Blood Pressure Location Lt brachial Position Sitting Pulse 92 Pulse Source Pulse Oximeter Temp 97.3 F Temp Source Temporal Artery Scan Pulse Oximetry (%) 97 Oxygen Delivery Method Room Air Intake Visit Reasons: Transfer care from Dr. Lopez Follow Up Allergies No Known Allergies Allergy (Verified 01/27/25 15:25) Medication List - Last Reconciled 01/27/25 by Abdullahi Villela MD amlodipine 10 mg PO DAILY cetirizine 10 mg PO DAILY PRN clotrimazole-betamethasone 1-0.05 % 1 appl topical BID 2 weeks glipizide ER 2.5 mg PO .EVERY OTHER DAY hydrochlorothiazide 25 mg PO DAILY lisinopril 40 mg PO DAILY lovastatin 20 mg PO DAILY meloxicam 15 mg PO DAILY omeprazole 20 mg PO DAILY triamcinolone acetonide 0.5% 1 appl topical TID triamcinolone acetonide 0.5% 1 appl topical TID Tobacco use date assessed: 01/27/25 Fall risk assessment: No Falls in past year Last assessed Fall Risk: 01/27/25 Dental Screening Dental Screen Date: 01/27/25 Did you have a dental visit in the last 12 months?: Yes Did you have a dental problem in the last 6 months where you did not have access to dental care?: No Was dental information given to patient?: Patient has dentist HPI Transfer care from Dr. Lopez Follow Up HPI Details Patient comes in today for her follow up visit - is transferring over from Dr. Lopez, who retired from the practice a couple of months ago States that he has been experiencing increased pain over his neck and right shoulder for a while now X-rays of the right shoulder done back in April 2024 revealed (+) moderate osteoarthritis in the right acromioclavicular joint Adds that he's had a recurrent rash on his forehead and on the back of his neck since September 2024 and that the previous Rx cream that Dr. Lopez prescribed for him did not help much Patient adds that he has a history of high levels of uric acid but does not recall any recent gout flare ups He has a bunion at the base of his right big toe but denies any increased pain or swelling of the toe itself He denies any headaches or dizziness Denies any chest pains, no shortness of breath No nausea/vomiting, no abdominal pain No change in bowel habits noted He had his follow-up labs done yesterday - to discuss his results [facility] Medical History (Updated 01/30/25 @ 16:31 by Abdullahi Villela MD) Vitamin D deficiency Allergic rhinitis Chronic kidney disease, stage III (moderate) Hyperuricemia GERD without esophagitis Pure hypercholesterolemia Diabetes mellitus Essential hypertension Surgical History History of drainage of abscess History of cataract surgery Family History Father Alzheimers disease Mother Diabetes Brother No problems noted. Sister No problems noted. Son No problems noted. Social History Housing: House Alcohol intake: never Patient Tobacco Use Status: Former Tobacco user Tobacco use type: Cigarette e-Cigarette/Vaping Use: Never Used Second Hand Smoke Exposure: No service: Yes Current occupational status: retired Cognitive needs: No Hearing needs: No Vision needs: Yes Questionnaire PHQ-9 Over the last 2 weeks, how often have you been bothered by any of the following problems? 1. Little interest or pleasure in doing things: not at all 2. Feeling down, depressed, or hopeless: not at all 3. Trouble falling or staying asleep, or sleeping too much: not at all 4. Feeling tired or having little energy: not at all 5. Poor appetite or overeating: not at all 6. Feeling bad about yourself - or that you are a failure or have let yourself or your family down: not at all 7. Trouble concentrating on things, such as reading the newspaper or watching television: not at all 8. Moving or speaking so slowly that other people could have noticed. Or the opposite - being so fidgety or restless that you have been moving around a lot more than usual: not at all 9. Thoughts that you would be better off or of hurting yourself in some way: not at all Total score: 0 Depression Screening Interpretation: Negative Depression Screening Done: Yes 25558 - PHQ-9 Billing: Yes Source: Developed by Drs. Angel L. Jayla iWtt Kurt Kroenke and colleagues, with an educational roshan from [employer]. Thrive Questionnaire Date Thrive assessed: 01/27/25 I am a: Patient What is your living situation today?: I have a steady place to live Within the past 12 months, did the food you bought not last and you didn't have the money to get more?: Never true Within the past 12 months, did you worry whether your food would run out before you got money to buy more?: Never true Do you have trouble paying for medicines?: No Do you have trouble getting transportation to medical appointments?: No Do you have trouble paying your heating and electricity bill?: No Do you have trouble taking care of your child, family member or friend?: No Do you have trouble with day-to-day activities such as bathing, preparing meals, shopping, managing finances, etc.?: No Are you currently unemployed and looking for a job?: No Are you interested in more education?: No Please select the resources that you would like help with: None Currently or been in a relationship where the following occur: No concerns reported THRIVE Score: 0 AUDIT C Alcohol Use Questionnaire (AUDIT-C) 1. How often do you have a drink containing alcohol?: Never 3. How often do you have six or more drinks on one occasion?: Never Total Score: 0 Score Reviewed/Action Taken: Yes CHUCK-7 AMB Questionnaire CHUCK-7 Date CHUCK - 7 assessed: 10/27/24 Feeling nervous, anxious, or on edge: 0 = Not at all Not being able to stop or control worryin = Not at all Worrying too much about different things: 0 = Not at all Trouble relaxin = Not at all Being so restless that it is hard to sit still: 0 = Not at all Becoming easily annoyed or irritable: 0 = Not at all Feeling afraid as if something awful might happen: 0 = Not at all Total CHUCK-7 score (0-4 normal; 5-9 mild; 10-14 moderate; 15-21 severe): 0 Source: Developed by Drs. Angel Witt, Pranay Schrader and colleagues, with an educational roshan from [employer]. Review of Systems Const Denies chills, Denies fatigue, Denies fever(s) and Denies headache(s) ENT Denies dysphagia, Denies dizziness, Denies otalgia, Denies headache(s), Reports neck pain (especially on the right side - chronic), Denies odynophagia and Denies sore throat Card Denies chest pain, Denies palpitations and Denies dyspnea Resp Denies chest congestion, Denies cough and Denies dyspnea GI Denies abdominal pain, Denies constipation, Denies dysphagia, Denies heartburn, Denies diarrhea, Denies nausea, Denies odynophagia and Denies vomiting Denies difficulty urinating, Denies dysuria, Denies nocturia and Denies urinary frequency Musc Denies back pain, Reports arthralgias (over the right shoulder) and Reports neck pain (especially on the right side - chronic) Skin/Breast Reports rash (over the forehead and the back of his neck) Neuro Denies dizziness and Denies headache(s) Endo Denies fatigue and Denies palpitations Physical exam (Primary Care) Vital Signs: Last Vital Signs Temp 97.3 F 01/27/25 14:49 Pulse 92 01/27/25 14:49 BP 140/66 H 01/27/25 14:49 Pulse Ox 97 01/27/25 14:49 Oxygen Delivery Method Room Air 01/27/25 14:49 BMI result Body Mass Index 25.7 Tobacco/Smoking Status: Tobacco use Status Tobacco use date assessed 01/27/25 01/27/25 14:53 Patient Tobacco Use Status Former Tobacco user 01/27/25 14:49 Tobacco use type Cigarette 01/27/25 14:49 e-Cigarette/Vaping Use Never Used 01/27/25 14:49 PHQ-9: PHQ-9 Score PHQ-9: Total score 0 01/27/25 15:25 Depression Screening Interpretation: Negative Thrive Assessment: Date of Thrive Assessment Date Thrive assessed 10/27/24 01/27/25 14:49 Currently or been in a relationship where the following occur: No concerns reported Const General: no acute distress and alert HENMT Ears: TM's normal bilaterally and EAC's normal Throat: Yes posterior oropharynx normal and Yes tonsils normal (no TP congestion) Neck Neck: No lymphadenopathy and Yes tender Thyroid: Thyroid normal Resp Auscultation: clear to auscultation bilaterally, no rales and no wheezes Cardio Rate: regular rate Rhythm: regular rhythm Heart sounds: no murmurs GI Palpation (GI): Soft to palpation and nontender Auscultation: normal bowel sounds Back/Spine/Pelvis Cervical Spine: cervical muscular tenderness (on the right side) and Cervical spine tenderness Thoracic/Lumbar Spine: lumbar spinal tenderness (mild) Skin Rashes: rashes noted ((+) scattered erythematous rash over forehead and on the back of the neck) Extrem General: Yes no clubbing, cyanosis or edema Right lower extremity: foot ((+) bunion at base of right big toe) Results Reviewed Results Reviewed: Laboratory Tests 01/26/25 06:55 WBC 6.4 Hgb 11.5 L Hct 35.1 L Plt Count 227 Sodium 144 Potassium 4.8 Creatinine 1.48 H Estimated GFR 46 Fasting Glucose 102 H Hemoglobin A1c % 5.7 Uric Acid 10.3 H Calcium 9.3 AST 26 ALT 12 Triglycerides 60 Cholesterol 126 LDL Cholesterol, Calc 82 HDL Cholesterol 32 L Vitamin B12 282 25-OH Vitamin D Total 16.5 L TSH 2.82 Coding Level of Care Code Est Pt Level 4 (20789) Complex EM visit Add On G2211 Diagnoses Essential hypertension I10 Type 2 diabetes mellitus with stage 3a chronic kidney disease, without long-term current use of insulin E11.22; N18.31 Diabetes mellitus type: type 2 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: 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 correction use Diabetes mellitus complication status: with kidney complications Diabetes mellitus complication detail: with chronic kidney disease Chronic kidney disease stage: stage 3 (moderate) Chronic kidney disease stage 3 subtype: stage 3a (GFR 45-59) Stage 3a chronic kidney disease N18.31 Chronic kidney disease stage 3 subtype: stage 3a (GFR 45-59) Pure hypercholesterolemia E78.00 Vitamin D deficiency E55.9 GERD without esophagitis K21.9 Hyperuricemia E79.0 Pruritic rash L28.2 Bunion of great toe of right foot M21.611 Primary osteoarthritis, right shoulder M19.011 Neck pain M54.2 Allergic rhinitis, unspecified seasonality, unspecified trigger J30.9 Allergic rhinitis trigger: unspecified Allergic rhinitis seasonality: unspecified Additional Codes PHQ-9 - 55146 - PHQ-9 Billing: Yes ([id number]) Assessment & Plan Assessment & Plan (1) Essential hypertension: Code(s): I10 - Essential (primary) hypertension Category: Medical Plan: Reinforced low sodium diet - goal is systolic BP of at least 130 to 140 mm or less Continue Lisinopril 40 mg QD, HCTZ 25 mg QD and Amlodipine 10 mg QD Patient is advised to monitor his blood pressure regularly (2) Diabetes mellitus: Code(s): E11.9 - Type 2 diabetes mellitus without complications Category: Medical Qualifiers: Diabetes mellitus type: type 2 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 use Diabetes mellitus complication status: with kidney complications Diabetes mellitus complication detail: with chronic kidney disease Chronic kidney disease stage: stage 3 (moderate) Chronic kidney disease stage 3 subtype: stage 3a (GFR 45-59) Qualified Code(s): E11.22 - Type 2 diabetes mellitus with diabetic chronic kidney disease; N18.31 - Chronic kidney disease, stage 3a Plan: His HgbA1c is at 5.7% on his labs done a few days ago - goal is at least <7.0% Reinforced diabetic diet Continue Glipizide ER 2.5 mg every other day (3) Chronic kidney disease, stage III (moderate): Code(s): N18.30 - Chronic kidney disease, stage 3 unspecified Category: Medical Qualifiers: Chronic kidney disease stage 3 subtype: stage 3a (GFR 45-59) Qualified Code(s): N18.31 - Chronic kidney disease, stage 3a Plan: Patient is reminded that the best way to help keep his renal function stable is with control of his diabetes and high blood pressure Will continue to monitor his renal function regularly (4) Pure hypercholesterolemia: Code(s): E78.00 - Pure hypercholesterolemia, unspecified Category: Medical Plan: Results of his labs done a few days ago reviewed and discussed with patient Reinforced low cholesterol diet Continue Lovastatin 20 mg QD Will recheck his labs and fasting lipids in 3 months for follow up (5) Vitamin D deficiency: Code(s): E55.9 - Vitamin D deficiency, unspecified Category: Medical Plan: Patient is advised that his Vitamin D level is still low on his recent labs Will start him on Vitamin D3 2000 units QD (6) GERD without esophagitis: Code(s): K21.9 - Gastro-esophageal reflux disease without esophagitis Category: Medical Plan: Dietary restrictions reinforced Continue Omeprazole 20 mg QD (7) Hyperuricemia: Code(s): E79.0 - Hyperuricemia without signs of inflammatory arthritis and tophaceous disease Category: Medical Plan: Patient's serum uric acid is elevated at 10.3 mg/dl on his labs done a few days ago He denies any recent / acute gout flare ups Reinforced low purine diet Will try starting him on Allopurinol 100 mg QD Will recheck his serum uric acid level in 3 months for follow up (8) Pruritic rash: Code(s): L28.2 - Other prurigo Category: Medical Plan: Will try starting him on Mometasone 0.1% cream to apply to the rash on his forehead and over the back of his neck QD PRN He apparently has been tried on Triamcinolone acetonide 0.5% cream and Lotrisone cream in the past without any relief or improvement Have advised that if his rash still does not respond to his current Rx, will need to consider referring him to dermatology for further evaluation and management (9) Bunion of great toe of right foot: Code(s): M21.611 - Bunion of right foot Category: Medical Plan: Patient states that this has not been bothering him too much lately and he currently has no increased pain over the bunion at the base of his right big toe Have advised him that if he starts having any problems here, can refer him to podiatry for further management (10) Primary osteoarthritis, right shoulder: Code(s): M19.011 - Primary osteoarthritis, right shoulder Category: Medical Plan: X-rays of the right shoulder done back in April 2024 revealed (+) moderate osteoarthritis in the right acromioclavicular joint Continue Meloxicam 15 mg QD with food PRN for now but have cautioned patient to take this only as needed due to his CKD Have advised him that if his shoulder pain gets worse, we can consider referring him to orthopedics for further evaluation and management and for consideration of cortisone injections, which patient states that he's had in the past (11) Neck pain: Code(s): M54.2 - Cervicalgia Category: Medical Plan: Patient reports that his recent increased neck pain is mostly on the right cervical paraspinal area If his neck pain progresses, will need to send him for cervical spine x-rays for further evaluation Will start him on a trial of Cyclobenzaprine 5 mg Q HS PRN in the meantime Patient is also advised that he can apply some warm compress to the back of his neck PRN for symptomatic relief (12) Allergic rhinitis: Code(s): J30.9 - Allergic rhinitis, unspecified Category: Medical Qualifiers: Allergic rhinitis trigger: unspecified Allergic rhinitis seasonality: unspecified Qualified Code(s): J30.9 - Allergic rhinitis, unspecified Plan: Continue Cetirizine 10 mg QD PRN Plan Follow up in 3 months Orders: Orders Comprehensive [place]. Panel Fast 3 Months E78.00 - Pure hypercholesterolemia, unspecified Lipid Panel 3 Months E78.00 - Pure hypercholesterolemia, unspecified TSH reflex Free T4 3 Months E78.00 - Pure hypercholesterolemia, unspecified Hemoglobin A1c 3 Months E11.9 - Type 2 diabetes mellitus without complications Microalbumin, Random (w Creat) 3 Months E11.9 - Type 2 diabetes mellitus without complications Erythrocyte Sedimentation Rate 3 Months M10.9 - Gout, unspecified C Reactive Protein 3 Months M10.9 - Gout, unspecified Complete Blood Count Auto Diff 3 Months D64.9 - Anemia, unspecified UA CC w/rflx Micro + Cult 3 Months R30.0 - Dysuria Uric Acid 3 Months M10.9 - Gout, unspecified Vitamin D 25-OH Total 3 Months E55.9 - Vitamin D deficiency, unspecified Vitamin B12 and Folate 3 Months E53.8 - Deficiency of other specified B group vitamins Medications: New cholecalciferol (vitamin D3) 50 mcg PO DAILY 90 days 90 caps 3RF E55.9 - Vitamin D deficiency, unspecified mometasone 0.1% 1 appl topical DAILY PRN 45 grams 0RF rash cyclobenzaprine 5 mg PO BEDTIME PRN 30 tabs 0RF muscle spasm allopurinol 100 mg PO DAILY 30 days 30 tabs 3RF
== END 2025-01-27 15:41 | disposition home or self-care (01) ==
LOC: HO.HMCH 14:33
PROVIDERS: PCP Internal Medicine; Visit Provider Internal Medicine
DX: I10 Essential (primary) hypertension (principal); E11.22 Type 2 diabetes mellitus with diabetic chronic kidney disease; N18.31 Chronic kidney disease, stage 3a; E78.00 Pure hypercholesterolemia, unspecified; E55.9 Vitamin D deficiency, unspecified; K21.9 Gastro-esophageal reflux disease without esophagitis; E79.0 Hyperuricemia without signs of inflammatory arthritis and tophaceous disease; L28.2 Other prurigo; M21.611 Bunion of right foot; M19.011 Primary osteoarthritis, right shoulder; M54.2 Cervicalgia; J30.9 Allergic rhinitis, unspecified

== ENCOUNTER → 2025-01-27 14:33 | Outpatient (BNVA) | payer MEDICARE, MEDICAID, SELFPAY | PROVIDERS: PCP Internal Medicine; Visit Provider Internal Medicine | DX: I12.9 Hypertensive chronic kidney disease with stage 1 through stage 4 chronic kidney disease, or unspecified chronic kidney disease (principal); E11.22 Type 2 diabetes mellitus with diabetic chronic kidney disease; N18.31 Chronic kidney disease, stage 3a; E78.00 Pure hypercholesterolemia, unspecified; E55.9 Vitamin D deficiency, unspecified; E79.0 Hyperuricemia without signs of inflammatory arthritis and tophaceous disease; K21.9 Gastro-esophageal reflux disease without esophagitis; L28.2 Other prurigo; M21.611 Bunion of right foot; M54.2 Cervicalgia; J30.9 Allergic rhinitis, unspecified | CPT/HCPCS: 96127; 99212 ==

== ENCOUNTER 2025-03-09 10:13 | Inpatient (IN) | payer MEDICARE, MEDICAID, SELFPAY ==
[2025-03-09] VITALS (9 sets, daily range): BP systolic 76–138; BP diastolic 46–78; PULSE 94–117; RESP 16–18; TEMP 36.2–36.6; O2SAT 98–99; BMI 24.2; BMI 24.7
--- NOTE | 2025-03-09 | ECG_ITS ---
Test Reason : irregular rythm Blood Pressure : */* mmHG Vent. Rate : 97 BPM Atrial Rate : 97 BPM P-R Int : 212 ms QRS Dur : 90 ms QT Int : 358 ms P-R-T Axes : 37 -51 55 degrees QTcB Int : 454 ms Sinus rhythm with 1st degree A-V block Left axis deviation Low voltage QRS Inferior infarct (cited on or before 17-Apr-2014) Cannot rule out Anterior infarct , age undetermined Abnormal ECG When compared with ECG of 10-May-2020 15:08, Premature ventricular complexes are no longer Present GA interval has increased Referred By: Allegra Ybarra Electronically Signed By: CAROLYNE MOHAN MD
--- NOTE | ~2025-03-09 | CT_ITS ---
EXAMINATION: CT CHEST WITHOUT IV CONTRAST, CT ABDOMEN PELVIS WITHOUT IV CONTRAST INDICATION: low bp neck pain COMPARISON: There are no prior studies available for comparison. TECHNIQUE: CT scan of the chest, abdomen and pelvis was performed without contrast using standard departmental protocol. Coronal and sagittal reformatted images were generated and reviewed. Oral contrast material was not administered at the request of the referring physician. This CT exam was performed with one or more of the following dose reduction techniques: automated exposure control, adjustment of the mA and/or kV according to patient size, use of iterative reconstruction technique. DLP: 643 mGy-cm CHEST: THYROID: The thyroid is unremarkable. LUNGS: There is linear scarring in the right upper lobe. There is dependent atelectasis at the lung bases. There is a 2 mm nodule in the right upper lobe (series 21, image 79). The lungs are otherwise clear. MEDIASTINUM: There is no mediastinal lymphadenopathy. BUTCH: Evaluation of the hilar regions is limited by lack of intravenous contrast material. CARDIOVASCULATURE: The heart is normal in size. There is no pericardial effusion. The thoracic aorta is normal in caliber. DEGREE OF CORONARY CALCIFICATION: mild PLEURA: There is no pleural effusion. No pneumothorax. MAIN AIRWAYS: The mainstem bronchi and proximal branches are patent. AXILLA: There is no axillary lymphadenopathy. SOFT TISSUES: Unremarkable. BONES: The bones are intact. ABDOMEN: LIVER: The liver is normal in size and contour. The liver has an unremarkable unenhanced appearance. GALLBLADDER / BILE DUCTS: The gallbladder is unremarkable. There is no intra or extrahepatic biliary ductal dilatation. SPLEEN: The spleen is normal in size. There are punctate calcifications consistent with old granulomatous disease. PANCREAS: The pancreas has an unremarkable unenhanced appearance. ADRENAL GLANDS: Unremarkable. KIDNEYS/RETROPERITONEUM: There are punctate nonobstructing calculi at the upper pole of the left kidney. There is no hydronephrosis. LYMPH NODES: No retroperitoneal lymphadenopathy is identified in the abdomen or pelvis. VASCULATURE: The abdominal aorta demonstrates mild atherosclerotic calcification, but is normal in caliber. MESENTERY/PERITONEUM: No free fluid. No masses. There is no free intraperitoneal gas. STOMACH: The stomach is collapsed, limiting evaluation. SMALL BOWEL: The small bowel is normal in caliber. COLON: The colon is largely collapsed. APPENDIX: Normal. URINARY BLADDER/PELVIC ORGANS: The urinary bladder is unremarkable. The prostate is mildly enlarged. BONES / SOFT TISSUES: There is degenerative disc disease of the spine. CT/CT abdomen pelvis wo IV con IMPRESSION: 1. Left nephrolithiasis as described, without evidence of ureteral obstruction. 2. Degenerative disc disease of the spine. Electronically signed by: Angel Martines MD 03/09/2025 02:58 PM EDT
--- NOTE | ~2025-03-09 | XR_ITS ---
EXAMINATION: XR CHEST CLINICAL INFORMATION: cp COMPARISON: December 12, 2019 TECHNIQUE: Frontal view of the chest was obtained. FINDINGS: No consolidation, pleural effusion, or pneumothorax. Subsegmental atelectasis versus scarring. No hyperinflation. Cardiomediastinal silhouette size is normal. Mild multilevel thoracic spondylosis. XR/XR chest 1V IMPRESSION: No acute airspace disease. Electronically signed by: Fidel Ogden MD 03/09/2025 01:38 PM EDT
--- NOTE | ~2025-03-09 | CT_ITS ---
EXAMINATION: CT CERVICAL SPINE WITHOUT CONTRAST CLINICAL INFORMATION: Neck pain COMPARISON: None available. TECHNIQUE: Axial imaging was performed from the base of the skull through T2 without IV contrast. Coronal and sagittal reformatted images were generated from the original axial data set. ALARA: The examination used one or more of the following radiation dose reduction techniques: Automated exposure control, iterative reconstruction, and/or adjustment of mA and/or KV. DLP: 406 mGY*cm FINDINGS: Bilateral external auditory canals are impacted with cerumen, left greater than right. There is mild reversal cervical lordosis. There is no prevertebral soft tissue edema There is sclerosis and osteophytes involving the atlantodental articulation. C2-C3: Minimal uncovertebral facet osteophytes. C3-C4: Mild disc space narrowing with uncovertebral and facet osteophytes, greater on the. C4-C5: Mild to moderate disc space narrowing with subtle anterolisthesis. There is uncovertebral and facet osteophytes. C5-C6: Moderate disc space narrowing with degenerative endplate changes and mild grade 1 retrolisthesis. Uncovertebral facet osteophytes result in moderate to severe foraminal narrowing. C6-7: Subtle anterolisthesis with mild disc space narrowing and small uncovertebral osteophytes. C7-T1: Unremarkable CT/CT cervical spine wo IV con IMPRESSION: Degenerative changes are most advanced at C5-6 where there is moderate to severe right greater than left foraminal narrowing. Cerumen impacted bilateral external auditory canals. There is mild reversal of cervical lordosis. This can be related to degenerative changes, positioning, muscle spasm, or posterior soft tissue injury. Electronically signed by: Gordo Burton MD 03/09/2025 03:05 PM EDT
--- NOTE | 2025-03-09 13:16 | ED.NECK ---
HPI - Neck Pain/Injury General Chief Complaint: Neck Pain/Injury Stated Complaint: Neck pain, lower back pain Time Seen by Provider: 03/09/25 10:25 History of Present Illness HPI Narrative: Patient is a 75-year-old male complaining of bilateral neck pain at 1st was on the left side and was on the right side it has gotten worse. Came to the ED. patient denies any fever chills. Feels generally weak. Was noted to have a low blood pressure on triage of 78/51 on the left 76/47 on the right repeat blood pressure was noted to be 96/50. Patient has no chest pain no abdominal pain no bloody stool no coughing or congestion or upper respiratory symptoms does have some mild back pain which is chronic in nature. No focal weakness. No bowel urinary incontinence. No radiation to the leg. Patient from home. Related Data Home Medications ?Medication ?Instructions ?Recorded ?Confirmed omeprazole 20 mg capsule,delayed 20 mg PO DAILY@0630 03/09/25 release Previous Rx's ?Medication ?Instructions ?Recorded amlodipine 10 mg tablet 10 mg PO DAILY #90 tabs 01/29/24 hydrochlorothiazide 25 mg tablet 25 mg PO DAILY #90 tabs 01/29/24 glipizide 2.5 mg tablet, extended 2.5 mg PO .EVERY OTHER DAY #30 tabs 06/23/24 release 24 hr lisinopril 40 mg tablet 40 mg PO DAILY #90 tabs 10/15/24 lovastatin 20 mg tablet 20 mg PO DAILY #90 tabs 10/15/24 clotrimazole-betamethasone 1 1 appl topical BID 2 weeks #45 10/27/24 %-0.05 % topical cream grams cetirizine 10 mg tablet 10 mg PO DAILY PRN allergy 01/24/25 symptoms #90 tabs allopurinol 100 mg tablet 100 mg PO DAILY 30 days #30 tabs 01/27/25 cholecalciferol (vitamin D3) 50 50 mcg PO DAILY 90 days #90 caps 01/27/25 mcg (2,000 unit) capsule mometasone 0.1 % topical cream 1 appl topical DAILY PRN rash #45 01/27/25 grams meloxicam 15 mg tablet 15 mg PO DAILY #30 tabs 03/02/25 cyclobenzaprine 5 mg tablet 5 mg PO BEDTIME PRN muscle spasm 03/03/25 #30 tabs Allergies Allergy/AdvReac Type Severity Reaction Status Date / Time No Known Allergies Allergy Verified 03/09/25 10:19 Review of Systems Review of Systems: Positive neck pain PMFSH Past Medical History Attestation statement: The following information was validated with the patient. Medical History Vitamin D deficiency Allergic rhinitis Chronic kidney disease, stage III (moderate) Hyperuricemia GERD without esophagitis Pure hypercholesterolemia Diabetes mellitus Essential hypertension Surgical History History of drainage of abscess History of cataract surgery Family History Family History Father Alzheimers disease Mother Diabetes Brother No problems noted. Sister No problems noted. Son No problems noted. Social History Social History Housing: House Unable to assess alcohol history related to: Unknown Alcohol intake: never Patient Tobacco Use Status: Former Tobacco user Tobacco use type: Cigarette Smoked in Last 30 Days: No e-Cigarette/Vaping Use: Never Used Second Hand Smoke Exposure: No Use of substances other than those prescribed or required for medical reasons: Unknown Advance Directives: No Advance Directives Information Provided: No service: Yes Current occupational status: retired Cognitive needs: No Hearing needs: No Vision needs: Yes Physical Exam Vital Signs: Vital Signs: Last Vital Signs Temp 98 F 03/09/25 15:12 Pulse 94 03/09/25 15:12 Resp 18 03/09/25 15:12 BP 112/53 L 03/09/25 15:12 Pulse Ox 98 03/09/25 15:12 O2 Del Method Room Air 03/09/25 15:12 BMI result Body Mass Index 24.2 Appearance: Alert. Oriented X3. No acute distress. Eyes: Pupils equal, round and reactive to light. ENT: Pharynx normal. Neck: Normal inspection. Neck supple. No lymph nodes noted. No crepitus CVS: Normal heart rate and rhythm. Pulses normal. Normal S1 and S2 Respiratory: No respiratory distress. Breath sounds normal. No Wheezing. No rales Abdomen: Soft and nontender. No rigidity. No distention. good BS x4 Skin: Skin warm and dry. Normal skin color. Normal skin turgor. Extremities: No lower extremity edema. Neurovascular intact to all extremities. No Lacerations. No Rash Neuro: Oriented X 3. No motor deficit. No sensory deficit. Moving all extermities. No slurred speech Medications Administered Discontinued Medications Generic Name Dose Route Start Last Admin Trade Name Finesse PRN Reason Stop Dose Admin Acetaminophen 650 mg 03/09/25 13:08 03/09/25 13:22 Acetaminophen 325 Mg Tablet PO 03/09/25 13:09 650 mg ONCE ONE Administration Sodium Chloride 1,000 mls @ 999 mls/hr 03/09/25 13:15 03/09/25 14:23 Ns IV 03/09/25 14:15 Infused .Q1H1M TIMO Infusion Medical Decision Making Medical Decision Making [facility] Narrative: Patient initially was brought in for a neck pain but was noted to have low blood pressure in the 70s over 50s. Has a history of diabetes. Patient is on 3 blood pressure medications. We did labs on the patient patient's white count was 12 hemoglobin is 11.8 is actually more elevated than baseline. No signs of bleeding. Patient did not notice any blood in the stool. Patient's electrolytes showed an elevated BUN and creatinine it is 67 and 4.16 today this is significantly elevated than baseline patient's flu COVID RSV were negative. Because patient's low blood pressure patient's neck pain and back pain a CT of the chest abdomen pelvis was done. There is no evidence for post renal obstruction there is no evidence for an enlarged aorta patient's blood pressure improved after IV fluids. Require admission for the renal insufficiency. Baseline creatinine is 1.5. Patient baseline is on amlodipine, hydrochlorothiazide, lisinopril for blood pressure control. Baseline has a history of hypertension. Differential Diagnosis Differential Diagnoses: The differential diagnosis associated with the presentation includes Renal insufficiency, aortic dissection, dehydration Admission/Observation Consideration of admission/observation: Escalation of care including admission/observation considered Consult Healthcare Provider Management of the patient was discussed with: Hospitalist Lab Data [facility] Lab Attestation statement: I reviewed the patient's lab results. 03/09/25 13:21 03/09/25 13:21 Labs: Lab Results 03/09/25 03/09/25 03/09/25 Range/Units 13:16 13:21 15:13 WBC 12.2 H (4.8-10.8) X10*3/uL RBC 4.41 L (4.60-5.80) X10*6/uL Hgb 11.8 L (14.0-18.0) g/dl Hct 35.5 L (42.0-52.0) % MCV 80.5 (80.0-98.0) fL MCH 26.8 L (27.0-33.0) pg MCHC 33.2 (31.0-36.0) g/dl RDW 13.9 (11.0-16.0) % Plt Count 219 (160-400) X10*3/uL MPV 12.0 (9.4-12.4) fL Immature Gran % (Auto) 0.7 H (0.0-0.4) % Neut % (Auto) 72.4 (45-73) % Lymph % (Auto) 11.2 L (20-40) % [place] % (Auto) 14.4 H (2-11) % Eos % (Auto) 1.1 (0-4) % Baso % (Auto) 0.2 (0-2) % Lymph # (Auto) 1.4 (1.2-4.9) X10*3/uL [place] # (Auto) 1.8 H (0.1-1.2) X10*3/uL Eos # (Auto) 0.1 (0.0-0.4) X10*3/uL Baso # (Auto) 0.0 (0.0-0.2) X10*3/uL Abs Immat Gran (auto) 0.08 H (0.00-0.03) X10*3/uL Absolute Neuts (auto) 8.9 H (2.0-8.3) x10*3/uL Absolute Nucleated RBC 0.000 (0.0-0.012) X10*3/uL Nucleated RBC % (auto) 0.0 (0.0-0.2) /100WBC Smear Tech's Comments VERIFIED Sodium 134 L (135-145) mmol/L Potassium 3.7 D (3.3-5.1) mmol/L Chloride 104 (96-108) mmol/L Carbon Dioxide 19 L (22-29) mmol/L Anion Gap 15 (12-20) BUN 67 H (9-16) mg/dL Creatinine 4.16 H* (0.5-1.4) mg/dL Estim Creat Clear Calc 13.9 Estimated GFR 14 Random Glucose 126 H (60-115) mg/dL Calcium 9.1 (8.4-10.2) mg/dL Total Bilirubin 0.5 (0.0-1.0) mg/dL Direct Bilirubin 0.2 (0.0-0.5) mg/dL AST 19 (5-37) U/L ALT 10 (0-40) U/L Alkaline Phosphatase 69 (39-117) U/L Total Protein 7.5 (6.5-8.0) g/dL Albumin 4.1 (3.5-5.0) g/dL Urine Color Yellow Urine Appearance Clear Urine pH 5.0 (5.0-9.0) Ur Specific [place] 1.015 (1.005-1.025) Urine Protein 30 (1+) H (Neg-Trace) mg/dL Urine Glucose (UA) Negative (Negative) mg/dL Urine Ketones Negative (Negative) mg/dL Urine Blood Negative (Negative) Urine Nitrite Negative (Negative) Ur Leukocyte Esterase Moderate (2+) H (Negative) Urine RBC 0-2 (0-2) /HPF Urine WBC 0-5 (0-5) /HPF Ur Squamous Epith Cells 0-2 (0-2) /HPF Urine Bacteria None Seen (None Seen) Hyaline Casts 0-2 (0-2) /LPF Influenza Type A (PCR) NEGATIVE (Negative) Influenza Type B (PCR) NEGATIVE (Negative) RSV RNA Qual (PCR) NEGATIVE (Negative) SARS-CoV-2 RNA (RT-PCR) NEGATIVE (Negative) Independent Interpretation I performed an independent interpretation of an: CT Scan (Scan of the chest abdomen pelvis was grossly negative) Radiology Impression Discussion of test interpretation with radiology: I have reviewed the radiologist's reading. External Record Review External record reviewed: Office record Critical Care Time Critical Care Time Critical Care Time: Yes Total Critical Care Time: 40 Attestation: I have personally provided 40 minutes of critical care time exclusive of time spent on separately billable procedures. ?Time includes review of lab data, radiology results, discussion with consultants, and monitoring for potential decompensation. ?Interventions were performed as documented above Discharge Plan Discharge Clinical Impression: Acute renal failure Patient Disposition: Admitted As Inpatient Print Language: Frisian
[2025-03-09 13:34] LABS: Hematocrit 35.5 % (42.0-52.0); Hemoglobin 11.8 g/dl (14.0-18.0); Imm Gran Abs Auto 0.08 X10*3/uL (0.00-0.03); Imm Gran Pct Auto 0.7 % (0.0-0.4); Lymphocytes Absolute Auto 1.4 X10*3/uL (1.2-4.9); MANUAL DIFF FLAG SCAN; Mean Corpuscular HGB Conc 33.2 g/dl (31.0-36.0); Mean Corpuscular Hemoglobin 26.8 pg (27.0-33.0); Mean Corpuscular Volume 80.5 fL (80.0-98.0); NRBC Abs Auto 0.000 X10*3/uL (0.0-0.012); NRBC Pct Auto 0.0 /100WBC (0.0-0.2); Platelet Count 219 X10*3/uL (160-400); Red Blood Count 4.41 X10*6/uL (4.60-5.80); SCAN SMEAR FLAG 1; White Blood Count 12.2 X10*3/uL (4.8-10.8)
[2025-03-09 13:53] LABS: Alanine Aminotransferase 10 U/L (0-40); Albumin Level 4.1 g/dL (3.5-5.0); Alkaline Phosphatase 69 U/L (39-117); Anion Gap 15 (12-20); Aspartate Amino Transferase 19 U/L (5-37); Blood Urea Nitrogen 67 mg/dL (9-16); Calcium 9.1 mg/dL (8.4-10.2); Carbon Dioxide 19 mmol/L (22-29); Chloride 104 mmol/L (96-108); Creatinine Clr Calc Pharmacy 13.9; Estimated Glomerular Filt Rate 14; Potassium 3.7 mmol/L (3.3-5.1); Sodium 134 mmol/L (135-145); Total Protein 7.5 g/dL (6.5-8.0)
[2025-03-09 14:17] LABS: Resp Syncy Virus RNA Qual PCR NEGATIVE (Negative); SARS COV2 PCR INHOUSE NEGATIVE (Negative)
[2025-03-09 15:21] LABS: Appearance Urine Clear; Glucose Urine UA Negative (Negative); PH 5.0 (5.0-9.0); Specific Gravity - Urine 1.015 (1.005-1.025); UMIC TRIGGER UACC YES
[2025-03-09 15:37] LABS: UACC Culture Trigger YES
--- NOTE | 2025-03-09 15:57 | PHA.MEDREC ---
Addendum entered by Maddie Luo RPh 03/09/25 17:30: MED REC REVIEWED BY [facility] Original Note: Pharmacy Consult ? Medication Reconciliation Pharmacy has completed the medication reconciliation. Spoke with pt and he confirmed his medications. Pt confirmed he still has and uses the Clotrimazole-Betamethasone Cream as needed for rashes. Pt confirmed the Glipizide 2.5mg tab Q48H and confirmed he last took it yesterday.
--- NOTE | 2025-03-09 15:59 | PM.IMHP ---
History of Present Illness Date of Service: 03/09/25 Chief Complaint: neck pain 75M PMH DM, HTN, CKD III, osteoarthritis, presented with neck pain. Patient has had ongoing neck pain for months but worse last few days after exertion. He takes meloxicam and Tylenol for this. Was getting unbearable so he came to the ED. In triage noted to have blood pressure of 78/51. Of note patient has lost 30-40 lb intentionally over the last few months, continues to take his blood pressure medications, does not check blood pressure regularly at home. Denies fever, chills, nausea vomiting, abdominal pain chest pain. In ED noted to have acute kidney injury with creatinine of 4.16, baseline around 1.5. CT abdomen without any signs of retention. CT cervical spine does show degenerative changes around C5-C6 moderate to severe right greater than left foraminal narrowing. Patient denies any neurological deficits. Review of Systems Review of Systems: Yes all other systems are reviewed and are negative [facility] Medical History Vitamin D deficiency Allergic rhinitis Chronic kidney disease, stage III (moderate) Hyperuricemia GERD without esophagitis Pure hypercholesterolemia Diabetes mellitus Essential hypertension Family History Father Alzheimers disease Mother Diabetes Brother No problems noted. Sister No problems noted. Son No problems noted. Surgical History History of drainage of abscess History of cataract surgery Social History Housing: House Unable to assess alcohol history related to: Unknown Alcohol intake: never Patient Tobacco Use Status: Former Tobacco user Tobacco use type: Cigarette Smoked in Last 30 Days: No e-Cigarette/Vaping Use: Never Used Second Hand Smoke Exposure: No Use of substances other than those prescribed or required for medical reasons: Unknown Advance Directives: No Advance Directives Information Provided: No service: Yes Current occupational status: retired Cognitive needs: No Hearing needs: No Vision needs: Yes Meds Allergies Allergy/AdvReac Type Severity Reaction Status Date / Time No Known Allergies Allergy Verified 03/09/25 10:19 Active Medications: Current Medications Acetaminophen (Acetaminophen 325 Mg Tablet) 650 mg PO Q6H PRN PRN Reason: Pain, Mild 1-3,fever,headache Allopurinol (Allopurinol 100 Mg Tablet) 100 mg PO DAILY [facility] Calcium Carbonate (Calcium Carbonate 750 Mg Tab.Chew) 750 mg PO Q4H PRN PRN Reason: Heartburn Cyclobenzaprine HCl (Cyclobenzaprine Hcl 5 Mg Tablet) 5 mg PO BEDTIME PRN PRN Reason: Muscle Spasm Lactated Ringer's (Lr) 1,000 mls @ 80 mls/hr IVCONT .[id number] [facility] Magnesium Hydroxide (Milk Of Magnesia 30 Ml Oral.Susp) 30 ml PO DAILY PRN PRN Reason: Constipation Melatonin (Melatonin 3 Mg Tablet) 6 mg PO BEDTIME PRN PRN Reason: Insomnia Non-Formulary Medication (Acetaminophen) 1,300 mg PO Q8H PRN PRN Reason: Pain, Moderate(Pain Scale 4-6) Sodium Chloride (0.9 % Sodium Chloride Flush 3 Ml Syringe) 3 ml IVFLUSH QSHIFT [facility] Vitamin D (Cholecalciferol (Vitamin D3) 25 Mcg Tablet) 50 mcg PO DAILY [facility] Home Medications ?Medication ?Instructions ?Recorded ?Confirmed ?Last Taken ?Type acetaminophen 650 mg 1,300 mg PO Q8H PRN Pain 03/09/25 03/09/25 03/09/25 History tablet,extended release clotrimazole-betamethasone 1 1 appl topical BID PRN Rash 03/09/25 03/09/25 Unknown History %-0.05 % topical cream glipizide 2.5 mg tablet, extended 2.5 mg PO Q48H 03/09/25 03/09/25 03/08/25 History release 24 hr omeprazole 20 mg capsule,delayed 20 mg PO DAILY@0630 03/09/25 03/09/25 03/09/25 History release Physical Exam Vital Signs and Narrative: Vital Signs: Last Vital Signs Temp 98 F 03/09/25 15:12 Pulse 94 03/09/25 15:12 Resp 18 03/09/25 15:12 BP 112/53 L 03/09/25 15:12 Pulse Ox 98 03/09/25 15:12 O2 Del Method Room Air 03/09/25 15:12 BMI result Body Mass Index 24.2 General: AO X 3, no acute distress Resp: CTA bilateral, no accessory muscles used CVS: S1,S2,RRR GI: soft, non tender, non distended Neuro: motor grossly intact, alert Psych: appropriate affect, appropriate insight Results Labs 03/09/25 13:21 03/09/25 13:21 Labs: Laboratory Results - last 24 hr 03/09/25 03/09/25 03/09/25 13:16 13:21 15:13 MCV 80.5 MCH 26.8 L MCHC 33.2 RDW 13.9 Plt Count 219 MPV 12.0 Immature Gran % (Auto) 0.7 H Neut % (Auto) 72.4 Lymph % (Auto) 11.2 L [place] % (Auto) 14.4 H Eos % (Auto) 1.1 Baso % (Auto) 0.2 Lymph # (Auto) 1.4 [place] # (Auto) 1.8 H Eos # (Auto) 0.1 Baso # (Auto) 0.0 Abs Immat Gran (auto) 0.08 H Absolute Neuts (auto) 8.9 H Absolute Nucleated RBC 0.000 Nucleated RBC % (auto) 0.0 Smear Tech's Comments VERIFIED Anion Gap 15 Estim Creat Clear Calc 13.9 Estimated GFR 14 Random Glucose 126 H Calcium 9.1 Total Bilirubin 0.5 Direct Bilirubin 0.2 AST 19 ALT 10 Alkaline Phosphatase 69 Total Protein 7.5 Albumin 4.1 Urine Color Yellow Urine Appearance Clear Urine pH 5.0 Ur Specific [place] 1.015 Urine Protein 30 (1+) H Urine Glucose (UA) Negative Urine Ketones Negative Urine Blood Negative Urine Nitrite Negative Ur Leukocyte Esterase Moderate (2+) H Urine RBC 0-2 Urine WBC 0-5 Ur Squamous Epith Cells 0-2 Urine Bacteria None Seen Hyaline Casts 0-2 Influenza Type A (PCR) NEGATIVE Influenza Type B (PCR) NEGATIVE RSV RNA Qual (PCR) NEGATIVE SARS-CoV-2 RNA (RT-PCR) NEGATIVE Imaging Radiologist's Impressions: Impressions Chest X-Ray 03/09/25 12:25 IMPRESSION: No acute airspace disease. Electronically signed by: Fidel Ogden MD 03/09/2025 01:38 PM EDT Abdomen/Pelvis CT 03/09/25 13:55 IMPRESSION: 1. Left nephrolithiasis as described, without evidence of ureteral obstruction. 2. Degenerative disc disease of the spine. Electronically signed by: Angel Martines MD 03/09/2025 02:58 PM EDT RP Cervical Spine CT 03/09/25 13:55 IMPRESSION: Degenerative changes are most advanced at C5-6 where there is moderate to severe right greater than left foraminal narrowing. Cerumen impacted bilateral external auditory canals. There is mild reversal of cervical lordosis. This can be related to degenerative changes, positioning, muscle spasm, or posterior soft tissue injury. Electronically signed by: Gordo Burton MD 03/09/2025 03:05 PM EDT RP Chest CT 03/09/25 13:55 IMPRESSION: 1. Left nephrolithiasis as described, without evidence of ureteral obstruction. 2. Degenerative disc disease of the spine. Electronically signed by: Angel Martines MD 03/09/2025 02:58 PM EDT RP Assessment and Plan (1) Acute renal failure: Status: Acute Plan 75M PMH DM, HTN, CKD III, osteoarthritis, presented with neck pain, found to be hypotensive and with LEXX on CKDIII Hypotension complicated by acute kidney injury on CKD 3 Likely due to ongoing antihypertensive despite weight loss Hold antihypertensives, we will give IV fluids, monitor BMP will also hold meloxicam Neck pain Due to C5-C6 degenerative changes Outpatient pain management Continue Tylenol and lidocaine patch Diabetes Significantly improved since weight loss, A1c 5.7, we will hold orals for now DVT prophylaxis with heparin subQ Full code Given degree of acute kidney injury and hypotension expected require at least 2 midnights inpatient Quality Stroke Does the patient have a stroke diagnosis?: No VTE Prior VTE?: No VTE Risk Level:: Medical - moderate - high VTE Device Contraindication: Treatment Not Indicated VTE Drug Contraindication: N/A - Med Ordered
[2025-03-09] MEDS: Lidocaine 4 % Patch ADH..PATCH 1 PATCH TRANSDERMA (18:01)
[2025-03-09] MEDS: Lactated Ringers 1,000 ML 80 ML IVCONT (18:02)
--- NOTE | 2025-03-09 18:30 | MHC.EDTECH ---
Patient given dinner tray
[2025-03-09 22:10] LABS: Glucose, Whole Blood 186 mg/dL (60-115)
[2025-03-10 03:04] VITALS: BP 108/54; PULSE 85; RESP 16; TEMP 36.1; O2SAT 96
[2025-03-10] MEDS: Lactated Ringers 1,000 ML 80 ML IVCONT (06:17)
[2025-03-10 07:22] LABS: Glucose, Whole Blood 103 mg/dL (60-115)
[2025-03-10 07:27] LABS: Hematocrit 32.4 % (42.0-52.0); Hemoglobin 10.9 g/dl (14.0-18.0); Mean Corpuscular HGB Conc 33.6 g/dl (31.0-36.0); Mean Corpuscular Hemoglobin 26.9 pg (27.0-33.0); Mean Corpuscular Volume 80.0 fL (80.0-98.0); NRBC Abs Auto 0.000 X10*3/uL (0.0-0.012); NRBC Pct Auto 0.0 /100WBC (0.0-0.2); Platelet Count 235 X10*3/uL (160-400); Red Blood Count 4.05 X10*6/uL (4.60-5.80); White Blood Count 10.0 X10*3/uL (4.8-10.8)
[2025-03-10 07:32] VITALS: BP 104/55; PULSE 84; RESP 18; TEMP 36.8; O2SAT 97
[2025-03-10 07:50] LABS: Anion Gap 15 (12-20); Blood Urea Nitrogen 65 mg/dL (9-16); Calcium 8.8 mg/dL (8.4-10.2); Carbon Dioxide 20 mmol/L (22-29); Chloride 106 mmol/L (96-108); Creatinine Clr Calc Pharmacy 20.2; Estimated Glomerular Filt Rate 22; Potassium 4.3 mmol/L (3.3-5.1); Sodium 137 mmol/L (135-145)
[2025-03-10] MEDS: Lidocaine 4 % Patch ADH..PATCH 1 PATCH TRANSDERMA (08:06)
[2025-03-10] MEDS: 0.9 % Sodium Chloride Flush 3 ML SYRINGE IVFLUSH (08:07)
--- NOTE | 2025-03-10 08:46 | PM.DS ---
DS: Providers Provider Date of Service: 03/10/25 Date of admission: 03/09/25 15:25 Date of discharge: 03/10/25 Primary care physician: Abdullahi Villela MD DS: Diagnosis Discharge Diagnosis (1) Acute renal failure: Status: Acute DS: Summary Hospital Course Hospital Course: from initial hpi: 75M PMH DM, HTN, CKD III, osteoarthritis, presented with neck pain. Patient has had ongoing neck pain for months but worse last few days after exertion. He takes meloxicam and Tylenol for this. Was getting unbearable so he came to the ED. In triage noted to have blood pressure of 78/51. Of note patient has lost 30-40 lb intentionally over the last few months, continues to take his blood pressure medications, does not check blood pressure regularly at home. Denies fever, chills, nausea vomiting, abdominal pain chest pain. In ED noted to have acute kidney injury with creatinine of 4.16, baseline around 1.5. CT abdomen without any signs of retention. CT cervical spine does show degenerative changes around C5-C6 moderate to severe right greater than left foraminal narrowing. Patient denies any neurological deficits. hospital course: Patient was admitted for hypotension complicated by acute kidney injury on CKD 3. This is likely due to ongoing use of antihypertensives despite improvement in blood pressure due to intentional weight loss. Antihypertensives were held was given IV fluids and NSAIDs were discontinued. Creatinine has improved from 4.16-2.86 and blood pressure has improved to low 100s. Patient is eager to be discharged home will discharge with plan to hold all antihypertensives and NSAIDs, should monitor blood pressure at home, follow up with Nephrology. Follow-up BMP in about 3 days. For patient's neck pain was given Tylenol and lidocaine with improvement should follow up with pain management. For diabetes appears to have resolved with weight loss should continue diet control and glipizide which may possibly be discontinued in the future. Time Attestation Discharge Coordination Time (in mins): 39 Quality: Safe Use of Opioids Does Pt have an Active Cancer Diagnosis on the Problem List?: No Quality: Stroke Does the patient have a stroke diagnosis?: No Physical Exam Vital Signs: Vital Signs: Last Vital Signs Temp 98.3 F 03/10/25 07:32 Pulse 84 03/10/25 07:32 Resp 18 03/10/25 07:32 BP 104/55 L 03/10/25 07:32 Pulse Ox 97 03/10/25 07:32 O2 Del Method Room Air 03/10/25 07:32 BMI result Body Mass Index 24.7 General: AO X 3, no acute distress Resp: CTA bilateral, no accessory muscles used CVS: S1,S2,RRR GI: soft, non tender, non distended Neuro: motor grossly intact, alert Psych: appropriate affect, appropriate insight DS: Data Data Completed and Pending Labs on day of discharge: Laboratory Results - last 24 hr 03/09/25 03/09/25 03/09/25 13:16 13:21 15:13 WBC 12.2 H RBC 4.41 L Hgb 11.8 L Hct 35.5 L MCV 80.5 MCH 26.8 L MCHC 33.2 RDW 13.9 Plt Count 219 MPV 12.0 Immature Gran % (Auto) 0.7 H Neut % (Auto) 72.4 Lymph % (Auto) 11.2 L [place] % (Auto) 14.4 H Eos % (Auto) 1.1 Baso % (Auto) 0.2 Lymph # (Auto) 1.4 [place] # (Auto) 1.8 H Eos # (Auto) 0.1 Baso # (Auto) 0.0 Abs Immat Gran (auto) 0.08 H Absolute Neuts (auto) 8.9 H Absolute Nucleated RBC 0.000 Nucleated RBC % (auto) 0.0 Smear Tech's Comments VERIFIED Sodium 134 L Potassium 3.7 D Chloride 104 Carbon Dioxide 19 L Anion Gap 15 BUN 67 H Creatinine 4.16 H* Estim Creat Clear Calc 13.9 Estimated GFR 14 POC Glucose Random Glucose 126 H Calcium 9.1 Total Bilirubin 0.5 Direct Bilirubin 0.2 AST 19 ALT 10 Alkaline Phosphatase 69 Total Protein 7.5 Albumin 4.1 Urine Color Yellow Urine Appearance Clear Urine pH 5.0 Ur Specific [place] 1.015 Urine Protein 30 (1+) H Urine Glucose (UA) Negative Urine Ketones Negative Urine Blood Negative Urine Nitrite Negative Ur Leukocyte Esterase Moderate (2+) H Urine RBC 0-2 Urine WBC 0-5 Ur Squamous Epith Cells 0-2 Urine Bacteria None Seen Hyaline Casts 0-2 Influenza Type A (PCR) NEGATIVE Influenza Type B (PCR) NEGATIVE RSV RNA Qual (PCR) NEGATIVE SARS-CoV-2 RNA (RT-PCR) NEGATIVE 03/09/25 03/10/25 03/10/25 22:07 05:50 07:07 WBC 10.0 RBC 4.05 L Hgb 10.9 L Hct 32.4 L MCV 80.0 MCH 26.9 L MCHC 33.6 RDW 13.9 Plt Count 235 MPV 11.9 Immature Gran % (Auto) Neut % (Auto) Lymph % (Auto) [place] % (Auto) Eos % (Auto) Baso % (Auto) Lymph # (Auto) [place] # (Auto) Eos # (Auto) Baso # (Auto) Abs Immat Gran (auto) Absolute Neuts (auto) Absolute Nucleated RBC 0.000 Nucleated RBC % (auto) 0.0 Smear Tech's Comments Sodium 137 Potassium 4.3 Chloride 106 Carbon Dioxide 20 L Anion Gap 15 BUN 65 H Creatinine 2.86 H Estim Creat Clear Calc 20.2 Estimated GFR 22 POC Glucose 186 H 103 Random Glucose 90 Calcium 8.8 Total Bilirubin Direct Bilirubin AST ALT Alkaline Phosphatase Total Protein Albumin Urine Color Urine Appearance Urine pH Ur Specific [place] Urine Protein Urine Glucose (UA) Urine Ketones Urine Blood Urine Nitrite Ur Leukocyte Esterase Urine RBC Urine WBC Ur Squamous Epith Cells Urine Bacteria Hyaline Casts Influenza Type A (PCR) Influenza Type B (PCR) RSV RNA Qual (PCR) SARS-CoV-2 RNA (RT-PCR) Discharge Plan Discharge Anticipated Discharge Date/Time: 03/10/25 08:40 Patient Disposition: Home, Self-Care Discharge Diagnosis: LEXX, hypotension Referrals: Abdullahi Villela MD [Primary Care Provider, Internal Medicine] - 1 Week All Wiggins MD [Physician, Nephrology] - 1 Week Referral Note: lexx on ckd 3 Guerrero Torres MD [Physician, Pain Management] - 1 Week Referral Note: neck pain Discharge Medications: Continued lovastatin 20 mg tablet 20 mg PO DAILY Qty: 90 8RF cetirizine 10 mg tablet 10 mg PO DAILY PRN (Reason: allergy symptoms) Qty: 90 0RF cyclobenzaprine 5 mg tablet 5 mg PO BEDTIME PRN (Reason: muscle spasm) Qty: 30 0RF omeprazole 20 mg capsule,delayed release(DR/EC) 20 mg PO DAILY@0630 acetaminophen 650 mg Tablet Extended Release 1,300 mg PO Q8H PRN (Reason: Pain) glipizide 2.5 mg tablet extended release 24hr 2.5 mg PO Q48H clotrimazole-betamethasone 1-0.05 % cream 1 appl topical BID PRN (Reason: Rash) cholecalciferol (vitamin D3) 50 mcg (2,000 unit) capsule 50 mcg PO DAILY 90 Days Qty: 90 3RF mometasone 0.1 % cream 1 appl topical DAILY PRN (Reason: rash) Qty: 45 0RF allopurinol 100 mg tablet 100 mg PO DAILY 30 Days Qty: 30 3RF Discontinued amlodipine 10 mg tablet 10 mg PO DAILY Qty: 90 8RF hydrochlorothiazide 25 mg tablet 25 mg PO DAILY Qty: 90 8RF lisinopril 40 mg tablet 40 mg PO DAILY Qty: 90 8RF meloxicam 15 mg tablet 15 mg PO DAILY Qty: 30 4RF Discharge Orders: Discharge Order (Routine); Ordered 03/10/25 Ordered By: Den Pruett Diet: Advance to usual diet Activity on Discharge: As tolerated Stand Alone Forms: Patient Portal Discharge page Print Language: Korean Other Ambulatory Orders: Basic Metabolic Panel (Routine) Timeframe: 3 Days Facility: [facility] - Location: Laboratory Ordered By: Den Pruett Care Plan Goals: recovery Health Concerns: lexx, hypotension Plan of Treatment: stopping all bp meds and nsaids monitor blood pressure, labs in a few days follow up with nephro and pain management Assessment: see above
[2025-03-10 11:25] VITALS: BP 110/57; PULSE 108; RESP 18; TEMP 36.3; O2SAT 98
[2025-03-10 11:28] LABS: Glucose, Whole Blood 115 mg/dL (60-115)
[2025-03-10 11:34] VITALS: BP 103/57; PULSE 109; O2SAT 98
--- NOTE | 2025-03-11 08:04 | MHC.CM.PN ---
PT LIVES WITH HIS SPOUSE AND IS INDEPENDENT WITH CARE AND MOBILITY COPY OF HCP REQUESTED PCP: [facility] DELIVERED PT DISCHARGED HOME ON 03/10/25 WITH NO SERVICES VIA PRIVATE TRANSPORT
== END 2025-03-10 12:43 | disposition home or self-care (01) | DRG 315 ==
LOC: HO.ED 15:15 → HO.EDOVER 15:57 → HO.S3 19:24
PROVIDERS: Admitting Provider Student in an Organized Health Care Education/Training Program; Emergency Provider Emergency Medicine Emergency Medical Services; PCP Internal Medicine; Visit Provider Internal Medicine
DX: I95.9 Hypotension, unspecified (principal); N17.9 Acute kidney failure, unspecified; I12.9 Hypertensive chronic kidney disease with stage 1 through stage 4 chronic kidney disease, or unspecified chronic kidney disease; N18.30 Chronic kidney disease, stage 3 unspecified; E11.22 Type 2 diabetes mellitus with diabetic chronic kidney disease; Z20.822 Contact with and (suspected) exposure to COVID-19; Z87.891 Personal history of nicotine dependence; Z79.84 Long term (current) use of oral hypoglycemic drugs; Z79.899 Other long term (current) drug therapy
CPT/HCPCS: 36415; 71045; 71250; 72125; 74176; 80048; 80076; 81001; 82947; 85025; 85027; 87086; 87637; 93005; 99285; J1644; J7120

== ENCOUNTER → 2025-03-09 10:48 | Outpatient (BNV) | payer MEDICARE, MEDICAID, SELFPAY | PROVIDERS: Admitting Provider Student in an Organized Health Care Education/Training Program; Emergency Provider Emergency Medicine Emergency Medical Services; PCP Internal Medicine; Visit Provider Internal Medicine Cardiovascular Disease | DX: I44.0 Atrioventricular block, first degree (principal); I25.2 Old myocardial infarction | CPT/HCPCS: 93010 ==

== ENCOUNTER → 2025-03-09 13:07 | Outpatient (BNV) | payer MEDICARE, MEDICAID, SELFPAY | PROVIDERS: Emergency Provider Emergency Medicine Emergency Medical Services; PCP Internal Medicine; Visit Provider Radiology Diagnostic Radiology | DX: N20.0 Calculus of kidney (principal); M51.379 Other intervertebral disc degeneration, lumbosacral region without mention of lumbar back pain or lower extremity pain; M50.322 Other cervical disc degeneration at C5-C6 level; M99.61 Osseous and subluxation stenosis of intervertebral foramina of cervical region; R07.9 Chest pain, unspecified | CPT/HCPCS: 71250; 74176 ==

== ENCOUNTER → 2025-03-09 15:25 | Outpatient (BNV) | payer MEDICARE, MEDICAID, SELFPAY | PROVIDERS: Admitting Provider Student in an Organized Health Care Education/Training Program; Emergency Provider Emergency Medicine Emergency Medical Services; PCP Internal Medicine; Visit Provider Internal Medicine | DX: N17.9 Acute kidney failure, unspecified (principal) | CPT/HCPCS: 99223; 99239 ==

== ENCOUNTER 2025-03-12 18:35 | Inpatient (IN) | payer MEDICARE, MEDICAID, SELFPAY ==
--- NOTE | ~2025-03-12 | XR_ITS ---
CLINICAL HISTORY: pain, unable to bear wt Three views of the right ankle and three views of the left ankle. Comparison: None provided Findings: Right ankle: No acute fractures. Ankle mortise intact. Mild degenerative changes of the ankle. Large ossicle at the inferior aspect of the medial malleolus. Possible small ankle effusion. No radiopaque foreign body. Bimalleolar soft tissue swelling. Left ankle: No acute fracture deformity. Ankle mortise intact. No significant degenerative change of the left ankle. Possible small effusion. Bone spur at the insertion of the plantar fascia on the inferior calcaneus Bimalleolar soft tissue swelling. IMPRESSION: 1. No acute fracture deformity of either ankle. Bimalleolar soft tissue swelling present. Possible small bilateral ankle fusions. This document has been electronically signed by: Chapito Greenwood MD on 03/12/2025 21:27:49
--- NOTE | ~2025-03-12 | XR_ITS ---
CLINICAL HISTORY: pain 3 view left foot Comparison: None provided Findings: No acute fracture deformity. Enthesophytes at the insertion of the Achilles tendon and plantar fascia on the calcaneus. Mild degenerative changes of the left foot. No ankle effusion. No radiopaque foreign body. IMPRESSION: 1. No acute findings. This document has been electronically signed by: Chapito Greenwood MD on 03/13/2025 03:02:37
--- NOTE | ~2025-03-12 | US_ITS ---
CLINICAL HISTORY: leg pain ,swelling Venous duplex ultrasound bilateral lower extremity Comparison: None provided Findings: The visualized deep veins are fully compressible with normal Doppler color flow and spectral tracings. No popliteal cyst. IMPRESSION: 1. Negative for bilateral lower extremity deep vein thrombosis. This document has been electronically signed by: Chapito Greenwood MD on 03/12/2025 21:55:43
--- NOTE | ~2025-03-12 | XR_ITS ---
CLINICAL HISTORY: weakness --- Additional Notes or Special Instructions: Ultrasound (2020)-[place] 2 view chest x-ray Comparison: CR/SR - XR CHEST 1V - 03/09/25 13:25 EDT Findings: The lungs are clear. Heart size is normal. No acute fracture. IMPRESSION: 1. No acute findings. This document has been electronically signed by: Chapito Greenwood MD on 03/12/2025 21:41:04
--- NOTE | ~2025-03-12 | XR_ITS ---
CLINICAL HISTORY: pain 3 view right foot Comparison: None provided Findings: No fracture deformity. Small enthesophytes at the insertion of the Achilles tendon and plantar fascia on the calcaneus. Hallux valgus. Degenerative changes of the 1st metatarsophalangeal joint. No ankle effusion. No radiopaque foreign body. IMPRESSION: 1. No acute findings. This document has been electronically signed by: Chapito Greenwood MD on 03/13/2025 03:01:43
--- NOTE | ~2025-03-12 | CT_ITS ---
CLINICAL HISTORY: infection, PNA? CT chest without contrast Comparison: CT/SR - CT CHEST WO IV CON - 03/09/25 13:55 EDT Findings: Heart size is normal. There is no pericardial effusion. Thoracic aorta is normal in diameter. There are no enlarged lymph nodes. There is minimal dependent atelectasis. There is unchanged minimal scarring in the right upper lobe. There is an unchanged 2 mm perifissural nodule along the minor fissure consistent with a benign perifissural lymph node. Trachea and central bronchi are widely patent. There is no fracture or suspicious lytic or sclerotic lesion. Limited images of the upper abdomen demonstrate a punctate nonobstructing left renal stone. IMPRESSION: No pneumonia or evidence of other source of infection in the chest. This document has been electronically signed by: Chris Kang MD on 03/13/2025 03:43:29
--- NOTE | ~2025-03-12 | NM_ITS ---
EXAMINATION: NM LUNG PERFUSION HISTORY: rule out PE, pt cannot have contrast due to CKD. TECHNIQUE: A pulmonary perfusion scan was performed following the intravenous demonstration of 4.0 mCi technetium 99m-MAA. Images were obtained in multiple projections. COMPARISON: Correlation is made with AP and lateral views of the chest dated 03/12/2025. FINDINGS: There is mild patchy uptake of the radiopharmaceutical bilaterally. No segmental or large subsegmental perfusion defects are identified. Findings are consistent with a very low probability for pulmonary emboli. NM/NM pul perfusion IMPRESSION: Very low probability for pulmonary emboli. Electronically signed by: Angel Martines MD 03/13/2025 11:12 AM EDT
[2025-03-12 18:51] VITALS: BP 132/65; PULSE 111; RESP 16; TEMP 36.9; O2SAT 97; BMI 24.9
--- NOTE | 2025-03-12 19:15 | PC.NURSE ---
Addendum entered by Radhika Shannon 03/12/25 19:28: pedal pulses felt on b/l feet Addendum entered by Radhika Shannon 03/12/25 19:25: *right foot more painful and swollen per pt. Original Note: assumed care of pt. Pt states pain 9/10 in B/L lower extremities. Pt was recently seen here and state h e has kidney disease. no pitting edema b/l noted, no noted redness, skin is warm to touch.
--- NOTE | 2025-03-12 19:31 | ED.GENADULT ---
HPI - General Adult General Chief complaint: General Medical Stated complaint: bilat ankle pain/ swelling Time Seen by Provider: 03/12/25 19:26 Source: patient and family Limitations: no limitations History of Present Illness HPI narrative: 75-year-old male returns to the emergency department for evaluation of bilateral lower extremity edema and generalized weakness. Patient has a history of diabetes, hypertension, CKD stage 3, GERD, was admitted to the hospital for LEXX and hypotension. He was discharged home on March 10 and reports that he was feeling quite well at that time. Over the past approximately 48 hours, he has had increased lower extremity edema. Today it was much more significant, causing him to have difficulty with ambulation, which is not his baseline. Patient states he is typically quite active however today due to the edema in his feet this has caused the pain. Patient states he had 1 fall where he landed on his right knee. He did not strike his head. There was no prodromal symptoms. In addition, the patient was instructed to discontinue his amlodipine, hydrochlorothiazide, lisinopril and meloxicam, which the patient has been compliant with. He also has not taking any of his other medication except for Tylenol. He denies any excessive fluid intake. He denies any chest pain or shortness of breath. No fevers chills nausea or vomiting. Related Data Home Medications ?Medication ?Instructions ?Recorded ?Confirmed acetaminophen 650 mg 1,300 mg PO Q8H PRN Pain 03/09/25 03/13/25 tablet,extended release clotrimazole-betamethasone 1 1 appl topical BID PRN Rash 03/09/25 03/13/25 %-0.05 % topical cream glipizide 2.5 mg tablet, extended 2.5 mg PO Q48H 03/09/25 03/13/25 release 24 hr omeprazole 20 mg capsule,delayed 20 mg PO DAILY@0630 03/09/25 03/13/25 release Previous Rx's ?Medication ?Instructions ?Recorded lovastatin 20 mg tablet 20 mg PO DAILY #90 tabs 10/15/24 cetirizine 10 mg tablet 10 mg PO DAILY PRN allergy 01/24/25 symptoms #90 tabs allopurinol 100 mg tablet 100 mg PO DAILY 30 days #30 tabs 01/27/25 cholecalciferol (vitamin D3) 50 50 mcg PO DAILY 90 days #90 caps 01/27/25 mcg (2,000 unit) capsule mometasone 0.1 % topical cream 1 appl topical DAILY PRN rash #45 01/27/25 grams cyclobenzaprine 5 mg tablet 5 mg PO BEDTIME PRN muscle spasm 03/03/25 #30 tabs magnesium oxide 400 mg (241.3 mg 400 mg PO DAILY #30 tabs 03/15/25 magnesium) tablet (MagOx) metoprolol tartrate 25 mg tablet 25 mg PO DAILY #30 tabs 03/15/25 prednisone 20 mg tablet 40 mg (2 x 20 mg) PO DAILY 5 days 03/16/25 #10 tabs Allergies Allergy/AdvReac Type Severity Reaction Status Date / Time No Known Allergies Allergy Verified 03/12/25 18:52 Review of Systems Review of Systems: Yes all other systems are reviewed and are negative Cardiovascular: Cardiovascular: Denies chest pain Respiratory: Respiratory: Denies cough PMFSH Past Medical History Medical History Vitamin D deficiency Allergic rhinitis Chronic kidney disease, stage III (moderate) Hyperuricemia GERD without esophagitis Pure hypercholesterolemia Diabetes mellitus Essential hypertension Surgical History History of drainage of abscess History of cataract surgery Family History Family History Father Alzheimers disease Mother Diabetes Brother No problems noted. Sister No problems noted. Son No problems noted. Social History Social History Household Members: Spouse and Children Housing: Apartment Do you presently have visiting nurse or other home services: No Unable to assess alcohol history related to: Unknown Alcohol intake: never Patient Tobacco Use Status: Former Tobacco user Tobacco use type: Cigarette e-Cigarette/Vaping Use: Never Used Second Hand Smoke Exposure: No service: No Current occupational status: retired Cognitive needs: No Hearing needs: No Vision needs: Yes Physical Exam ED Vital Signs: Vital Signs - 24 hr 03/12/25 18:51 03/12/25 20:57 03/12/25 23:09 Temperature 98.4 F 96.8 F 97.0 F Pulse Rate 111 H 105 H 104 H Respiratory Rate 16 19 17 Blood Pressure 132/65 109/67 118/62 Pulse Oximetry 97 100 99 Oxygen Delivery Method Room Air Room Air Room Air 03/13/25 01:21 Temperature 100.2 F Pulse Rate 109 H Respiratory Rate 20 Blood Pressure Pulse Oximetry 97 Oxygen Delivery Method Room Air BMI result Body Mass Index 24.9 Eyes Other: Pupils equal round and reactive to light Resp Other: crackles in the left base but otherwise clear throughout Cardio Rate: regular rate and tachycardic GI Other: abdomen is soft and nontender. No peritoneal signs. No CVAT. Extrem Other: +1-2 lower extremity edema to the proximal tibias bilaterally. There is diffuse calf tenderness as well as bilateral ankle tenderness. Capillary refills less than 2 seconds. There is no skin breakdown erythema or discharge. Course Course Course Narrative: March 12, 2025, 8:50 p.m. patient signed out in stable condition with UA, imaging, BNP and troponin pending. Consideration for inpatient admission. Reevaluation(s) Reevaluation #1: I Betsy Martinez PA-C have accepted care of the patient and signed out pending imaging labs and final disposition Labs: Leukocytosis with left shift noted, not anemic, no electrolyte abnormality, creatinine back to baseline, urine not infected, viral panel negative Chest x-ray:Findings: The lungs are clear. Heart size is normal. No acute fracture. IMPRESSION: 1. No acute findings. Bilateral x-rays of the ankles:Findings: Right ankle: No acute fractures. Ankle mortise intact. Mild degenerative changes of the ankle. Large ossicle at the inferior aspect of the medial malleolus. Possible small ankle effusion. No radiopaque foreign body. Bimalleolar soft tissue swelling. Left ankle: No acute fracture deformity. Ankle mortise intact. No significant degenerative change of the left ankle. Possible small effusion. Bone spur at the insertion of the plantar fascia on the inferior calcaneus Bimalleolar soft tissue swelling. IMPRESSION: 1. No acute fracture deformity of either ankle. Bimalleolar soft tissue swelling present. Possible small bilateral ankle fusions. Bilateral Doppler studies lower extremities: Findings: The visualized deep veins are fully compressible with normal Doppler color flow and spectral tracings. No popliteal cyst. IMPRESSION: 1. Negative for bilateral lower extremity deep vein thrombosis. Patient now has a temperature of 100.2? he has been persistently tachycardic, I had ordered a dimer, he does not meet age adjusted criteria. Given he has diabetes with underlying chronic kidney disease, he will require a V/Q scan. Patient is still complains of bilateral foot pain, the ankle x-rays are overall normal, he does have some soft tissue swelling. On exam, there are no cellulitic changes. There were no open wounds or ulcerations. We will be obtaining x-rays of bilateral feet, perhaps he has osteo. Ordering blood cultures, lactic, giving 500 mL fluid bolus. Giving Tylenol and methocarbamol for his discomfort. I am also ordering a non-con CT scan of the chest, we still do not have a source for his fever. I did discuss these findings with the hospitalist, the patient will be admitted. At 2:35 a.m. on March 13 a sepsis focused exam was performed, the patient has spiked a temp. Blood cultures, lactic obtained, giving a 500 mL fluid bolus, starting ceftriaxone a sources yet to be identified Time: 02:35 Medications Administered Discontinued Medications Generic Name Dose Route Start Last Admin Trade Name Finesse PRN Reason Stop Dose Admin Acetaminophen 975 mg 03/13/25 01:21 03/13/25 01:52 Acetaminophen 325 Mg Tablet PO 03/13/25 01:22 975 mg ONCE ONE Administration Acetaminophen 650 mg 03/13/25 03:07 03/15/25 21:16 Acetaminophen 325 Mg Tablet PO 650 mg Q6H PRN Administration Pain, Mild 1-3,fever,headache Allopurinol 100 mg 03/14/25 09:00 03/16/25 08:44 Allopurinol 100 Mg Tablet PO 100 mg DAILY TIMO Administration Ceftriaxone Sodium 2 gm 03/13/25 02:35 03/13/25 02:43 Ceftriaxone Sodium 2 Gm Vial IVPUSH 03/13/25 02:36 2 gm ONCE ONE Administration Ceftriaxone Sodium 1 gm 03/13/25 21:00 03/14/25 00:21 Ceftriaxone Sodium 1 Gm Vial IVPUSH 1 gm Q24H TIMO Administration Enoxaparin Sodium 40 mg 03/13/25 09:00 03/16/25 08:44 Enoxaparin Sodium 40 Mg/0.4 Ml Syringe SUBCUT 40 mg Q24H TIMO Administration Sodium Chloride 500 mls @ 500 mls/hr 03/13/25 01:29 03/13/25 02:40 Ns IV 07/07/25 02:28 Infused .Q1H ONE Infusion Magnesium Sulfate 2 gm in 50 mls @ 25 mls/hr 03/13/25 03:45 03/13/25 06:03 Magnesium Sulfate/H2o IV 03/13/25 05:44 Infused ONCE ONE Infusion Sodium Chloride 1,000 mls @ 100 mls/hr 03/13/25 04:15 03/14/25 07:53 Ns IVCONT Infused .Q10H TIMO Infusion Magnesium Sulfate 2 gm in 50 mls @ 25 mls/hr 03/14/25 11:05 03/14/25 13:16 Magnesium Sulfate/H2o IV 03/14/25 13:04 Infused ONCE ONE Infusion Insulin Human Lispro 0 unit 03/13/25 07:30 03/16/25 07:50 Insulin Lispro 100 Unit/Ml 3 Ml Vial SUBCUT Not Given QIDACHS [facility] Protocol Magnesium Oxide 400 mg 03/15/25 11:26 03/15/25 12:08 Magnesium Oxide 400 Mg Tablet PO 03/15/25 11:27 400 mg ONCE ONE Administration Methocarbamol 750 mg 03/13/25 01:21 03/13/25 01:53 Methocarbamol 750 Mg Tablet PO 03/13/25 01:22 750 mg ONCE ONE Administration Metoprolol Tartrate 12.5 mg 03/14/25 09:25 03/16/25 08:43 Metoprolol Tartrate 12.5 Mg Halftab PO 12.5 mg BID [facility] Administration Protocol Omeprazole 20 mg 03/13/25 06:30 03/14/25 05:13 Omeprazole 20 Mg Capsule. PO Not Given DAILY@30 [facility] Omeprazole 20 mg 03/14/25 06:30 03/16/25 06:34 Omeprazole 20 Mg Capsule. PO 20 mg DAILY@0630 [facility] Administration Pravastatin Sodium 20 mg 03/14/25 09:00 03/16/25 08:44 Pravastatin Sodium 20 Mg Tablet PO 20 mg DAILY [facility] Administration Senna 17.2 mg 03/13/25 21:00 03/15/25 21:16 Sennosides 8.6 Mg Tablet PO 17.2 mg BEDTIME [facility] Administration Sodium Chloride 3 ml 03/13/25 08:00 03/16/25 08:44 0.9 % Sodium Chloride Flush 3 Ml Syringe IVFLUSH 3 ml QSHIFT [facility] Administration Medical Decision Making Medical Decision Making [facility] Narrative: 75-year-old male with a history of hypertension, diabetes, CKD, returns after being discharged on March 10 for bilateral lower extremity edema, causing him difficulty with ambulation and associated weakness. Patient and family confirmed that the he is not taking any of his medications as they thought they were instructed to discontinue all medications. He has been taking Tylenol. He is not on a diuretic. He did receive IV fluids during his inpatient stay. He denies any chest pain or shortness of breath. Repeat labs, EKG, chest x-ray. Also check lower extremity ultrasound. Chest x-ray and EKG. Patient is creatinine has improved to essentially baseline. Remainder of labs are within patient's baseline however new leukocytosis of 15 without unclear etiology at this time. Discussed with and seen by Dr. Collier. Differential Diagnosis Differential Diagnoses: The differential diagnosis associated with the presentation includes Medication reaction Dehydration DVT Pneumonia UTI Metabolic abnormality Admission/Observation Consideration of admission/observation: Escalation of care including admission/observation considered Lab Data [facility] Lab Attestation statement: I reviewed the patient's lab results. 03/15/25 08:39 03/14/25 09:30 Labs: Lab Results 03/12/25 03/12/25 03/12/25 Range/Units 19:26 20:11 20:21 WBC 15.1 H (4.8-10.8) X10*3/uL RBC 3.91 L (4.60-5.80) X10*6/uL Hgb 10.8 L (14.0-18.0) g/dl Hct 31.1 L (42.0-52.0) % MCV 79.5 L (80.0-98.0) fL MCH 27.6 (27.0-33.0) pg MCHC 34.7 (31.0-36.0) g/dl RDW 14.3 (11.0-16.0) % Plt Count 315 D (160-400) X10*3/uL MPV 10.6 (9.4-12.4) fL Immature Gran % (Auto) 0.6 H (0.0-0.4) % Neut % (Auto) 73.8 H (45-73) % Lymph % (Auto) 8.9 L (20-40) % [place] % (Auto) 15.8 H (2-11) % Eos % (Auto) 0.7 (0-4) % Baso % (Auto) 0.2 (0-2) % Lymph # (Auto) 1.3 (1.2-4.9) X10*3/uL [place] # (Auto) 2.4 H (0.1-1.2) X10*3/uL Eos # (Auto) 0.1 (0.0-0.4) X10*3/uL Baso # (Auto) 0.0 (0.0-0.2) X10*3/uL Abs Immat Gran (auto) 0.09 H (0.00-0.03) X10*3/uL Absolute Neuts (auto) 11.1 H (2.0-8.3) x10*3/uL Absolute Nucleated RBC 0.000 (0.0-0.012) X10*3/uL Nucleated RBC % (auto) 0.0 (0.0-0.2) /100WBC Smear Tech's Comments VERIFIED ESR (0-15) MM/HR D-Dimer High Sensitivty NG/ML Sodium 138 (135-145) mmol/L Potassium 4.6 (3.3-5.1) mmol/L Chloride 108 (96-108) mmol/L Carbon Dioxide 19 L (22-29) mmol/L Anion Gap 16 (12-20) BUN 47 H (9-16) mg/dL Creatinine 1.57 H (0.5-1.4) mg/dL Estim Creat Clear Calc 36.8 Estimated GFR 43 Random Glucose 117 H (60-115) mg/dL Lactic Acid (0.5-2.0) mmol/L Uric Acid (3.4-7.0) mg/dL Calcium 9.3 (8.4-10.2) mg/dL Magnesium (1.6-2.6) mg/dL Total Bilirubin 0.6 (0.0-1.0) mg/dL AST 27 (5-37) U/L ALT 7 (0-40) U/L Alkaline Phosphatase 64 (39-117) U/L Troponin I High Sens 7.3 (<3.5-35.0) ng/L C-Reactive Protein (< or = 0.50) mg/dL B-Natriuretic Peptide 184 H (<100) pg/mL Total Protein 7.3 (6.5-8.0) g/dL Albumin 3.7 (3.5-5.0) g/dL TSH (0.32-4.0) uIU/mL Free T4 (0.71-1.85) ng/dL Urine Color Urine Appearance Urine pH (5.0-9.0) Ur Specific [place] (1.005-1.025) Urine Protein (Neg-Trace) mg/dL Urine Glucose (UA) (Negative) mg/dL Urine Ketones (Negative) mg/dL Urine Blood (Negative) Urine Nitrite (Negative) Ur Leukocyte Esterase (Negative) Influenza Type A (PCR) NEGATIVE (Negative) Influenza Type B (PCR) NEGATIVE (Negative) RSV RNA Qual (PCR) NEGATIVE (Negative) SARS-CoV-2 RNA (RT-PCR) NEGATIVE (Negative) 03/12/25 03/12/25 03/13/25 Range/Units 21:35 22:14 02:00 WBC (4.8-10.8) X10*3/uL RBC (4.60-5.80) X10*6/uL Hgb (14.0-18.0) g/dl Hct (42.0-52.0) % MCV (80.0-98.0) fL MCH (27.0-33.0) pg MCHC (31.0-36.0) g/dl RDW (11.0-16.0) % Plt Count (160-400) X10*3/uL MPV (9.4-12.4) fL Immature Gran % (Auto) (0.0-0.4) % Neut % (Auto) (45-73) % Lymph % (Auto) (20-40) % [place] % (Auto) (2-11) % Eos % (Auto) (0-4) % Baso % (Auto) (0-2) % Lymph # (Auto) (1.2-4.9) X10*3/uL [place] # (Auto) (0.1-1.2) X10*3/uL Eos # (Auto) (0.0-0.4) X10*3/uL Baso # (Auto) (0.0-0.2) X10*3/uL Abs Immat Gran (auto) (0.00-0.03) X10*3/uL Absolute Neuts (auto) (2.0-8.3) x10*3/uL Absolute Nucleated RBC (0.0-0.012) X10*3/uL Nucleated RBC % (auto) (0.0-0.2) /100WBC Smear Tech's Comments ESR 91 H (0-15) MM/HR D-Dimer High Sensitivty 888 NG/ML Sodium (135-145) mmol/L Potassium (3.3-5.1) mmol/L Chloride (96-108) mmol/L Carbon Dioxide (22-29) mmol/L Anion Gap (12-20) BUN (9-16) mg/dL Creatinine (0.5-1.4) mg/dL Estim Creat Clear Calc Estimated GFR Random Glucose (60-115) mg/dL Lactic Acid 1.0 (0.5-2.0) mmol/L Uric Acid 6.2 (3.4-7.0) mg/dL Calcium (8.4-10.2) mg/dL Magnesium 1.6 (1.6-2.6) mg/dL Total Bilirubin (0.0-1.0) mg/dL AST (5-37) U/L ALT (0-40) U/L Alkaline Phosphatase (39-117) U/L Troponin I High Sens 6.7 (<3.5-35.0) ng/L C-Reactive Protein 30.08 H (< or = 0.50) mg/dL B-Natriuretic Peptide (<100) pg/mL Total Protein (6.5-8.0) g/dL Albumin (3.5-5.0) g/dL TSH 2.01 (0.32-4.0) uIU/mL Free T4 1.15 (0.71-1.85) ng/dL Urine Color Yellow Urine Appearance Clear Urine pH 5.0 (5.0-9.0) Ur Specific [place] 1.015 (1.005-1.025) Urine Protein Trace (Neg-Trace) mg/dL Urine Glucose (UA) Negative (Negative) mg/dL Urine Ketones Negative (Negative) mg/dL Urine Blood Negative (Negative) Urine Nitrite Negative (Negative) Ur Leukocyte Esterase Negative (Negative) Influenza Type A (PCR) (Negative) Influenza Type B (PCR) (Negative) RSV RNA Qual (PCR) (Negative) SARS-CoV-2 RNA (RT-PCR) (Negative) Independent Interpretation I performed an independent interpretation of an: EKG ( EKG is sinus tach at 106 beats per minute without any acute ischemic changes) Independent Historian Clinical information obtained from an independent historian. History obtained from or confirmed by: Spouse and Other ( daughter) External Record Review External record reviewed: Inpatient record Chronic Conditions Patient?s care impacted by: Diabetes and Hypertension Discharge Plan Discharge Clinical Impression: Bilateral foot pain Fever Qualifiers: Fever type: unspecified Qualified Code(s): R50.9 - Fever, unspecified Patient Disposition: Admitted As Inpatient Interventions: Admission Worksheet (ED) Last Done: 03/13/25 07:51 Discharge Date/Time: 03/13/25 21:14
[2025-03-12 19:33] LABS: Hematocrit 31.1 % (42.0-52.0); Hemoglobin 10.8 g/dl (14.0-18.0); Imm Gran Abs Auto 0.09 X10*3/uL (0.00-0.03); Imm Gran Pct Auto 0.6 % (0.0-0.4); Lymphocytes Absolute Auto 1.3 X10*3/uL (1.2-4.9); MANUAL DIFF FLAG SCAN; Mean Corpuscular HGB Conc 34.7 g/dl (31.0-36.0); Mean Corpuscular Hemoglobin 27.6 pg (27.0-33.0); Mean Corpuscular Volume 79.5 fL (80.0-98.0); NRBC Abs Auto 0.000 X10*3/uL (0.0-0.012); NRBC Pct Auto 0.0 /100WBC (0.0-0.2); Platelet Count 315 X10*3/uL (160-400); Red Blood Count 3.91 X10*6/uL (4.60-5.80); SCAN SMEAR FLAG 1; White Blood Count 15.1 X10*3/uL (4.8-10.8)
[2025-03-12 19:46] LABS: Alanine Aminotransferase 7 U/L (0-40); Albumin Level 3.7 g/dL (3.5-5.0); Alkaline Phosphatase 64 U/L (39-117); Anion Gap 16 (12-20); Aspartate Amino Transferase 27 U/L (5-37); Blood Urea Nitrogen 47 mg/dL (9-16); Calcium 9.3 mg/dL (8.4-10.2); Carbon Dioxide 19 mmol/L (22-29); Chloride 108 mmol/L (96-108); Creatinine Clr Calc Pharmacy 36.8; Estimated Glomerular Filt Rate 43; Potassium 4.6 mmol/L (3.3-5.1); Sodium 138 mmol/L (135-145); Total Protein 7.3 g/dL (6.5-8.0)
--- NOTE | 2025-03-12 20:02 | ECG_ITS ---
Test Reason : weakness Blood Pressure : */* mmHG Vent. Rate : 106 BPM Atrial Rate : 106 BPM P-R Int : 198 ms QRS Dur : 74 ms QT Int : 328 ms P-R-T Axes : 95 -40 31 degrees QTcB Int : 435 ms Sinus tachycardia Left axis deviation Inferior infarct (cited on or before 17-Apr-2014) Anterior infarct (cited on or before 09-Mar-2025) Abnormal ECG When compared with ECG of 09-Mar-2025 10:48, No significant change was found Referred By: Tk Hinds Electronically Signed By: Wallace Crespo
--- NOTE | 2025-03-12 20:29 | PC.NURSE ---
US at bedside.
[2025-03-12 20:38] LABS: B Type Natriuretic Peptide 184 pg/mL (<100)
[2025-03-12 20:47] LABS: Troponin-I High Sensitivity 7.3 ng/L (<3.5-35.0)
[2025-03-12 20:57] VITALS: BP 109/67; PULSE 105; RESP 19; TEMP 36; O2SAT 100
[2025-03-12 21:02] LABS: Resp Syncy Virus RNA Qual PCR NEGATIVE (Negative); SARS COV2 PCR INHOUSE NEGATIVE (Negative)
[2025-03-12 21:43] LABS: Appearance Urine Clear; Glucose Urine UA Negative (Negative); PH 5.0 (5.0-9.0); Specific Gravity - Urine 1.015 (1.005-1.025)
[2025-03-12 22:28] LABS: D Dimer High Sensitivity 888 NG/ML
[2025-03-12 22:44] LABS: Troponin-I High Sensitivity 6.7 ng/L (<3.5-35.0)
[2025-03-12 23:09] VITALS: BP 118/62; PULSE 104; RESP 17; TEMP 36.1; O2SAT 99
[2025-03-13] VITALS (9 sets, daily range): BP systolic 111–141; BP diastolic 60–85; PULSE 96–125; RESP 13–20; TEMP 36.5–37.9; O2SAT 92–98
--- NOTE | 2025-03-13 01:21 | PC.NURSE ---
pt states he feels warm, rectal temp obtained. provider aware, awaiting new orders
--- NOTE | 2025-03-13 03:34 | PM.IMHP ---
History of Present Illness Date of Service: 03/13/25 Attending physician on admission: Torsten Oneil Chief Complaint: B foot swelling, fever Patient is a 75-year-old male, Greenlandic speaking with past medical history [id number] diabetes, osteoarthritis, gout, allergic rhinitis, chronic kidney disease stage 3 with recent LEXX, , GERD, hyperlipidemia and hypertension presents back to the ED after being discharged on March 10 for neck pain and LEXX with complaints today of bilateral ankle and foot swelling with pain and fever. Patient states the right big toe is especially painful. Patient has a noted leukocytosis of 15. Patient has max temp of 100.2 degrees. Patient is currently alert and orientated x3, UA is negative. Lactic acid also normal at 1.0. Pt is on room air. Bilateral feet are warm to the touch with no obvious evidence of cellulitis. Bilateral foot x-rays and ankle x-rays are negative for acute findings but there is questionable small ankle effusions present. Dopplers for DVT are also negative bilaterally. ED ordered D-dimer that is elevated at 888 and patient is tachycardic. Patient can not undergo a CTA due to chronic kidney disease so V/Q scan will be ordered in the a.m.. Patient is not normally on anticoagulation. Patient has no evidence of hypoxia or right heart strain on EKG. CT of the chest pending. Patient states when he was discharged on March 10 noting his renal function did improve and the neck pain resolved qith tylenol and lidocaine patch. CT of the cervical spine noted degenerative changes at C5-C6 where there is moderate to severe right greater than left foraminal narrowing Patient was stopped on meloxicam and his antihypertensives noting his low blood pressure upon arrival. Patient's blood pressure currently stable. Renal function shows a GFR of 43. UA again is negative for UTI with no hematuria or proteinuria. CT of the abdomen done on previous admission noted a left nephrolithiasis without evidence of obstruction or hydronephrosis. Patient was started on ceftriaxone empirically in the ED. Blood cultures x2 pending. Pt received fluid bolus. ESR and CRP are also both elevated. Patient does have history of osteoarthritis. Ankle xray noted for Bimalleolar swelling and possible small ankle effusions. Uric acid level pending. Review of Systems Review of Systems: Patient currently denies any chest pain or shortness of breath at rest. Patient reports weakness, with pain persisting especially in the right big toe. Patient states the swelling in his feet worsened after returning home from being discharged on March 10. Patient denies any falls or injuries. Patient denies any nausea, vomiting, diarrhea, constipation, abdominal pain. Pt denies any outdoor activity, tic exposure or having pets with tic issues. Yes all other systems are reviewed and are negative [facility] Medical History Vitamin D deficiency Allergic rhinitis Chronic kidney disease, stage III (moderate) Hyperuricemia GERD without esophagitis Pure hypercholesterolemia Diabetes mellitus Essential hypertension Cognitive capacity: Alert and oriented x3 Family History Father Alzheimers disease Mother Diabetes Brother No problems noted. Sister No problems noted. Son No problems noted. Surgical History History of drainage of abscess History of cataract surgery Social History Household Members: Spouse Housing: House Do you presently have visiting nurse or other home services: No Unable to assess alcohol history related to: Unknown Alcohol intake: never Patient Tobacco Use Status: Former Tobacco user Tobacco use type: Cigarette e-Cigarette/Vaping Use: Never Used Second Hand Smoke Exposure: No service: No Current occupational status: retired Cognitive needs: No Hearing needs: No Vision needs: Yes Ebola Risk: Travel/Contact With Anyone From Affected Area/s: No Has Patient Experienced Ebola Symptoms: No Meds Allergies Allergy/AdvReac Type Severity Reaction Status Date / Time No Known Allergies Allergy Verified 03/12/25 18:52 Active Medications: Current Medications Acetaminophen (Acetaminophen 325 Mg Tablet) 650 mg PO Q6H PRN PRN Reason: Pain, Mild 1-3,fever,headache Albuterol/Ipratropium (Albuterol/Iprat 2.5/0.5mg 3 Ml Ampul.Neb) 3 ml INHALE Q4H PRN PRN Reason: Shortness of Breath/Wheezing Calcium Carbonate (Calcium Carbonate 750 Mg Tab.Chew) 750 mg PO Q4H PRN PRN Reason: Heartburn Enoxaparin Sodium (Enoxaparin Sodium 40 Mg/0.4 Ml Syringe) 40 mg SUBCUT Q24H TIMO Magnesium Hydroxide (Milk Of Magnesia 30 Ml Oral.Susp) 30 ml PO DAILY PRN PRN Reason: Constipation Melatonin (Melatonin 3 Mg Tablet) 6 mg PO BEDTIME PRN PRN Reason: Insomnia Ondansetron HCl (Ondansetron Hcl 4 Mg/2 Ml Vial) 4 mg IVPUSH Q8H PRN PRN Reason: Nausea and Vomiting Senna (Sennosides 8.6 Mg Tablet) 17.2 mg PO BEDTIME TIMO Sodium Chloride (0.9 % Sodium Chloride Flush 3 Ml Syringe) 3 ml IVFLUSH QSHIFT TIMO Home Medications ?Medication ?Instructions ?Recorded ?Confirmed ?Last Taken ?Type acetaminophen 650 mg 1,300 mg PO Q8H PRN Pain 03/09/25 03/09/25 03/09/25 History tablet,extended release clotrimazole-betamethasone 1 1 appl topical BID PRN Rash 03/09/25 03/09/25 Unknown History %-0.05 % topical cream glipizide 2.5 mg tablet, extended 2.5 mg PO Q48H 03/09/25 03/09/25 03/08/25 History release 24 hr omeprazole 20 mg capsule,delayed 20 mg PO DAILY@0630 03/09/25 03/09/25 03/09/25 History release Physical Exam Vital Signs and Narrative: Vital Signs: Last Vital Signs Temp 100.2 F 03/13/25 01:21 Pulse 108 H 03/13/25 02:44 Resp 20 03/13/25 02:44 BP 120/62 03/13/25 02:44 Pulse Ox 98 03/13/25 02:44 O2 Del Method Room Air 03/13/25 02:44 BMI result Body Mass Index 24.9 Alert and orientated X3, able to give good history. Neuro: CN II-X11 intact, no deficits, visual acuity intact EYES: PERRLA, EOM intact,. sclera non icteric, conjunctiva pink ENT: hearing intact, no issues with swallowing, uvula midline, lips moist, nares patent no epistaxis, edentulous (dentures are at home) Cardiac: S1 S2 RRR tachycaridc 111, no murmur, no JVD, mild edema in Lower ext's with noted chronic discoloration Pulmonary: lungs diminished B Abdominal: BS active in all 4 quadrants, no guarding, tenderness, rebounding MSK: strength 5/5 upper and 4/5 in lower extremities : no CVA tenderness no bladder distension Extremities: mild edema in lower extremities, PT and DP pulses palpable +2 Psych: mood stable, judgement and insight good Skin: intact, no new open wounds reported Results Labs 03/12/25 19:26 03/12/25 19:26 Labs: Laboratory Results - last 24 hr 03/12/25 03/12/25 03/12/25 19:26 20:11 20:21 MCV 79.5 L MCH 27.6 MCHC 34.7 RDW 14.3 Plt Count 315 D MPV 10.6 Immature Gran % (Auto) 0.6 H Neut % (Auto) 73.8 H Lymph % (Auto) 8.9 L [place] % (Auto) 15.8 H Eos % (Auto) 0.7 Baso % (Auto) 0.2 Lymph # (Auto) 1.3 [place] # (Auto) 2.4 H Eos # (Auto) 0.1 Baso # (Auto) 0.0 Abs Immat Gran (auto) 0.09 H Absolute Neuts (auto) 11.1 H Absolute Nucleated RBC 0.000 Nucleated RBC % (auto) 0.0 Smear Tech's Comments VERIFIED ESR D-Dimer High Sensitivty Anion Gap 16 Estim Creat Clear Calc 36.8 Estimated GFR 43 Random Glucose 117 H Lactic Acid Calcium 9.3 Total Bilirubin 0.6 AST 27 ALT 7 Alkaline Phosphatase 64 Troponin I High Sens 7.3 C-Reactive Protein B-Natriuretic Peptide 184 H Total Protein 7.3 Albumin 3.7 Urine Color Urine Appearance Urine pH Ur Specific [place] Urine Protein Urine Glucose (UA) Urine Ketones Urine Blood Urine Nitrite Ur Leukocyte Esterase Influenza Type A (PCR) NEGATIVE Influenza Type B (PCR) NEGATIVE RSV RNA Qual (PCR) NEGATIVE SARS-CoV-2 RNA (RT-PCR) NEGATIVE 03/12/25 03/12/25 03/13/25 21:35 22:14 02:00 MCV MCH MCHC RDW Plt Count MPV Immature Gran % (Auto) Neut % (Auto) Lymph % (Auto) [place] % (Auto) Eos % (Auto) Baso % (Auto) Lymph # (Auto) [place] # (Auto) Eos # (Auto) Baso # (Auto) Abs Immat Gran (auto) Absolute Neuts (auto) Absolute Nucleated RBC Nucleated RBC % (auto) Smear Tech's Comments ESR 91 H D-Dimer High Sensitivty 888 Anion Gap Estim Creat Clear Calc Estimated GFR Random Glucose Lactic Acid 1.0 Calcium Total Bilirubin AST ALT Alkaline Phosphatase Troponin I High Sens 6.7 C-Reactive Protein 30.08 H B-Natriuretic Peptide Total Protein Albumin Urine Color Yellow Urine Appearance Clear Urine pH 5.0 Ur Specific [place] 1.015 Urine Protein Trace Urine Glucose (UA) Negative Urine Ketones Negative Urine Blood Negative Urine Nitrite Negative Ur Leukocyte Esterase Negative Influenza Type A (PCR) Influenza Type B (PCR) RSV RNA Qual (PCR) SARS-CoV-2 RNA (RT-PCR) ECG Attestation: I personally reviewed and interpreted this ECG as follows: (ST Qtc 435) Prior ECG tracings: available for review Imaging Radiologist's Impressions: CT CHest IMPRESSION: No pneumonia or evidence of other source of infection in the chest. Limited images of the upper abdomen demonstrate a punctate nonobstructing left renal stone. B Feet IMPRESSION: 1. No acute findings. Venous duplex IMPRESSION: 1. Negative for bilateral lower extremity deep vein thrombosis. CXR Findings: The lungs are clear. Heart size is normal. No acute fracture. IMPRESSION: 1. No acute findings. Ankle Xray IMPRESSION: 1. No acute fracture deformity of either ankle. Bimalleolar soft tissue swelling present. Possible small bilateral ankle fusions. Assessment and Plan (1) Fever: Qualifiers: Fever type: unspecified Qualified Code(s): R50.9 - Fever, unspecified Status: Acute Plan Patient is a 75-year-old male, [place]ic speaking with past medical history [id number] diabetes, osteoarthritis, gout, allergic rhinitis, chronic kidney disease stage 3 with recent LEXX, , GERD, hyperlipidemia and hypertension is being admitted with fever, B foot pain and leukocytosis. Ankle xrays note B malleolar swelling with possible small ankle effusions. Pt had been admitted March 09 for neck pain and LEXX with noted hypotension. Pt was discharged on March 10 noting improved BP and renal function off meloxicam and antihypertensives. Pt did well with tyelnol and lidocaine patch for neck pain and source is degenerative changes in C5 - C6. Patient denies current tobacco use, alcohol use, marijuana use or illicit drug use. Fever/ sepsis -UA negative for UTI, CT of the chest negative pneumonia, noted nonobstructing left nephrolithiasis without evidence of pyelonephritis -Blood cultures x2 pending -CRP and ESR are elevated with noted leukocytosis of 15 -Tick-borne panel ordered -Patient is started on ceftriaxone in the emergency department empirically -Possible source ankle effusions (small in presentation) with malleolar swelling bilaterally -IV fluids -Telemetry -Tylenol -Echo ordered noting elevated BNP, tachycardia, fever Bilateral ankle fusions with malleolar swelling -Ortho consultation ordered -Ceftriaxone initiated -Keep extremities elevated -Uric acid normal -CRP and ESR are elevated with noted leukocytosis of 15 -Dopplers Neg for DVT B Tachycardia with elevated DDIMER 888 -Maybe secondary to fever -Telemetry -V/Q scan of the a.m. patient can not have contrast due to renal function issues -No right heart strain on EKG -No evidence of hypoxia -We will hold off on full dose anticoagulation until results of V/Q scan are available Punctate Left nonobstructing nephrolithiasis -Noted on CT chest and also on CT of the abdomen and pelvis with previous admission on March 09 -UA is negative for UTI, hematuria or proteinuria -Outpatient follow-up with Urology is indicated CKD IIIB -GFR 43, creatinine clearance 36.8 -Avoid hypotension -Avoid nephrotoxic drugs including NSAIDs -Follow-up with nephrology as an outpatient -UA negative for proteinuria and hematuria History of gout -Uric acid 6.2 -Continue allopurinol once med rec completed -No indication for colchicine Elevated BNP -Echo ordered -Telemetry NIDDM -Sliding scale insulin -Diabetic diet GERD -Omeprazole HLD -Patient normally on lovastatin, order once med rec completed -LFTs WNL DVT prophylaxis: Lovenox 30 mg daily PPI prophylaxis: omeperazole MED REC pending Full Code Status Quality Stroke Does the patient have a stroke diagnosis?: No Reason for No Anti-thrombotic by Day Two: N/A - Med Ordered VTE Prior VTE?: No VTE Risk Level:: Medical - moderate - high VTE Device Contraindication: N/A - Device Ordered VTE Drug Contraindication: N/A - Med Ordered
[2025-03-13 03:35] LABS: Magnesium 1.6 mg/dL (1.6-2.6); Uric Acid 6.2 mg/dL (3.4-7.0)
[2025-03-13 03:49] LABS: Free T4 (Free Thyroxine) 1.15 ng/dL (0.71-1.85); Thyroid Stimulating Hormone 2.01 uIU/mL (0.32-4.0)
[2025-03-13 04:12] LABS: Hematocrit 28.7 % (42.0-52.0); Hemoglobin 10.0 g/dl (14.0-18.0); Imm Gran Abs Auto 0.07 X10*3/uL (0.00-0.03); Imm Gran Pct Auto 0.4 % (0.0-0.4); Lymphocytes Absolute Auto 1.1 X10*3/uL (1.2-4.9); MANUAL DIFF FLAG SCAN; Mean Corpuscular HGB Conc 34.8 g/dl (31.0-36.0); Mean Corpuscular Hemoglobin 27.5 pg (27.0-33.0); Mean Corpuscular Volume 78.8 fL (80.0-98.0); NRBC Abs Auto 0.000 X10*3/uL (0.0-0.012); NRBC Pct Auto 0.0 /100WBC (0.0-0.2); Platelet Count 317 X10*3/uL (160-400); Red Blood Count 3.64 X10*6/uL (4.60-5.80); SCAN SMEAR FLAG 1; White Blood Count 15.6 X10*3/uL (4.8-10.8)
[2025-03-13] MEDS: Magnesium Sulfate/H2O 2 GM/50 ML PIGGYBACK IV (04:14)
[2025-03-13 04:31] LABS: Alanine Aminotransferase < 6 U/L (0-40); Albumin Level 3.3 g/dL (3.5-5.0); Alkaline Phosphatase 58 U/L (39-117); Anion Gap 17 (12-20); Aspartate Amino Transferase 22 U/L (5-37); Blood Urea Nitrogen 39 mg/dL (9-16); Calcium 9.0 mg/dL (8.4-10.2); Carbon Dioxide 17 mmol/L (22-29); Chloride 109 mmol/L (96-108); Creatinine Clr Calc Pharmacy 43.8; Estimated Glomerular Filt Rate 53; Magnesium 1.5 mg/dL (1.6-2.6); Potassium 4.5 mmol/L (3.3-5.1); Sodium 138 mmol/L (135-145); Total Protein 6.5 g/dL (6.5-8.0)
--- NOTE | 2025-03-13 04:44 | PC.NURSE ---
pt medicated per NOV. resting.
--- NOTE | 2025-03-13 06:21 | PC.NURSE ---
pt medicated per MAR
--- NOTE | 2025-03-13 07:00 | CA_ITS ---
Transthoracic Echocardiogram Patient (Last, First, Middle): Orville Ahumada M Gender: Male Date of : 1950 Age: 75 Procedure Date: 03/13/2025 Procedure Type: Transthoracic Echocardiogram Location: [facility] [place] Height: 170.18 cm Weight: 71.67 kg BSA: 1.83 m2 Heart Rate: 111 bpm BP: 129 / 70 mmHg Rope Tier: RUSSEL Referring MD: Trudy Edmondson [employer]SULTANT- Symptoms: elevated BNP, tachycardic, fever Study Quality: Technically Difficult w/Contrast ECG Rhythm: Tachycardia Conclusions: - Normal left ventricular size, thickness, systolic function, and wall motion. The visually estimated ejection fraction is between 55-60%. Abnormal diastolic function is noted. Spectral Doppler is indicative of a pseudonormal filling pattern. Elevated filling pressures. - Normal right ventricular cavity size and systolic function. Findings Procedure Information Contrast agent, definity, is being given per protocol without apparent complications. Left Ventricle Normal left ventricular size, thickness, systolic function, and wall motion. The visually estimated ejection fraction is between 55-60%. Abnormal diastolic function is noted. Spectral Doppler is indicative of a pseudonormal filling pattern. Elevated filling pressures. Right Ventricle Normal right ventricular cavity size and systolic function. Atria The left atrium is normal in size. The right atrium is mildly dilated. Aortic Valve There is a normal trileaflet aortic valve. There is mild calcification of the aortic valve. There is no aortic valve stenosis. There is no aortic valve regurgitation. Mitral Valve The mitral valve appears normal. There is no mitral valve regurgitation. There is no mitral valve stenosis. Pulmonic Valve The pulmonic valve is likely normal. Tricuspid Valve Normal tricuspid valve structure. There is trace tricuspid valve regurgitation. Tricuspid regurgitation envelope is inadequate for calculation of right ventricular systolic pressure. Normal right atrial pressure. Great Vessels All visible segments of the aorta are normal in size. The visualized portions of the pulmonary artery and branches are normal. Venous The inferior vena cava is normal in size and collapses greater than 50% with inspiration. Pericardium/Pleural There is no evidence of pericardial effusion. Prior Study Comparison Changes noted compared to prior study dated: 12/23/2017. elevated filling pressures. Measurements 2D Linear Measurements IVSd: 0.80 0.6-0.9/0.6-1.0 cm LVIDd: 4.38 3.9-5.3/4.2-5.9 cm LVIDd Index: 2.39 2.4-3.2/2.2-3.1 cm/m2 LVIDs: 2.80 2.0-3.6 cm LVPWd: 0.81 0.7-1.1 cm LA Diam: 3.30 2.7-3.8/3.0-4.0 cm LAIDs Index: 1.80 1.5-2.3 cm/m2 LV Mass: 136.02 67-162/88-224 g LV Mass Index: 74.33 43-95/49-115 g/m2 LVOT Diam: 2.10 3.0+(-)1.3 cm 2D Systolic Function EF 4C: 60.70 >55% EF 2C: 57.90 >55% EF BiP: 57.90 >55% Mitral Valve MV VTI: 0.24 MV Pk Long: 1.54 MV Mn Long: 0.78 MV Pk Grad: 9.00 MV Mn Grad: 3.00 MV Pk E: 1.36 MV Decel Time: 121.00 E'Lateral: 6.46 E'Medial: 5.59 E/E' Med: 24.30 E/E' Lat: 21.10 PHT: 35.00 MVA PHT: 6.29 MVA Continuity: 2.62 Decel Benson: 11.35 Aortic Valve AoV Pk Long: 1.42 AoV Mn Long: 1.06 AoV VTI: 0.26 AoV Pk Grad: 8.00 Aov Mn Grad: 5.00 MICA Cont.VTI: 2.42 LVOT LVOT Pk Long: 1.09 LVOT Mn Long: 0.78 LVOT VTI: 0.19 LVOT Pk Grad: 5.00 LVOT Mn Grad: 3.00 LVOT Diam: 2.10 LVOT Area: 3.46 Diastolic Function MV Pk E: 1.36 E'Medial: 5.59 E/E' Med: 24.30 E' Laterial: 6.46 E/E' Lat: 21.10 Right Ventricle TAPSE (mm): 24.80 TVS' Long: 18.20 Tricuspid Valve RA Press: 3.00 Great Vessels Aorta Sinus of Valsalva: 3.40 2.0-3.5 cm Ao Asc: 3.10 2.1-3.4 cm Ao Arch: 3.50 Pulmonary Valve PV Pk Long: 1.14 Peak PV Grad: 5.00 Updated in Other Vendor System with Status of Final Wallace Crespo MD electronically signed on 03/14/2025 3:48:22 PM with status of Final
[2025-03-13 07:13] LABS: Glucose, Whole Blood 114 mg/dL (60-115)
--- NOTE | 2025-03-13 08:40 | PHA.MEDREC ---
Addendum entered by Maddie Luo RPh 03/13/25 10:16: MED REC REVIEWED BY [facility] Original Note: Pharmacy Consult ? Medication Reconciliation Pharmacy has completed the medication reconciliation. Spoke with pt and he confirmed he was just recently Dc'd with us 03/10. Pt was told to stop and confirmed he stopped Amlodipine, Hydrochlorothiazide, Lisinopril and Meloxicam by the Dr when he was admitted. Pt and I perused down his med list to confirm medications were up to date.
--- NOTE | 2025-03-13 09:41 | MHC.CM.PN ---
CM met with Patient at bedside, in the ED, and addressed IMM with him, providing Patient with the original and a copy will be placed on the chart. Patient lives in a house with his Girlfriend/Aleida and he required no services nor DME [employer]. Home/self care is Patient's goal and CM has initiated and will follow for dc planning. PCP is Dr. Abdullahi Villela and Step-Daughter will transport to home at dc.
--- NOTE | 2025-03-13 11:50 | PM.EVENT ---
Event Note Date of Service: 03/13/25 Event Note: 75-year-old man admitted with fever, foot pain and leukocytosis. Ankle xrays note B malleolar swelling with possible small ankle effusions. Pt had been admitted March 09 for neck pain and LEXX with noted hypotension. Pt was discharged on March 10 noting improved BP and renal function off meloxicam and antihypertensives. Pt did well with tylenol and lidocaine patch for neck pain and source is degenerative changes in C5 - C6. Fever/ sepsis UA negative for UTI, CT of the chest negative pneumonia, noted nonobstructing left nephrolithiasis without evidence of pyelonephritis Blood cultures x2 pending CRP and ESR are elevated with noted leukocytosis of 15 Tick-borne panel ordered ceftriaxone empirically Possible source ankle effusions (small in presentation) with malleolar swelling bilaterally IV fluids Tylenol Echo ordered noting elevated BNP, tachycardia, fever Bilateral ankle fusions with malleolar swelling Ortho consultation ordered Ceftriaxone initiated Keep extremities elevated Uric acid normal CRP and ESR are elevated with noted leukocytosis of 15 Dopplers Neg for DVT Tachycardia with elevated DDIMER [id number] Maybe secondary to fever V/Q scan of the a.m. patient can not have contrast due to renal function issues No right heart strain on EKG No evidence of hypoxia We will hold off on full dose anticoagulation until results of V/Q scan are available Punctate Left nonobstructing nephrolithiasis Noted on CT chest and also on CT of the abdomen and pelvis with previous admission on March 09 UA is negative for UTI, hematuria or proteinuria Outpatient follow-up with Urology is indicated Microcytic anemia No obvious bleeding Monitor CBC CKD IIIB GFR 43, creatinine clearance 36.8 Avoid hypotension Avoid nephrotoxic drugs including NSAIDs Follow-up with nephrology as an outpatient UA negative for proteinuria and hematuria History of gout Uric acid 6.2 Continue allopurinol once med rec completed No indication for colchicine Elevated BNP Echo ordered Telemetry NIDDM 2 Sliding scale insulin Diabetic diet GERD Omeprazole HLD Patient normally on lovastatin, order once med rec completed LFTs WNL DVT prophylaxis: Lovenox 30 mg daily PPI prophylaxis: omeperazole Full Code Status Time Spent With Patient Time: Total time managing care of this patient today ____ minutes.
--- NOTE | 2025-03-13 11:57 | PM.CNOR ---
History of Present Illness HPI Consult date: 03/13/25 Chief complaint: sepsis Narrative: Mr. Ahumada is a 75-year-old male who presented to the emergency department on 03/12/2025 for evaluation of bilateral lower extremity edema, pain and generalized weakness. He has a past medical history significant for diabetes, hypertension, chronic kidney disease stage 3 and GERD. Patient was recently admitted to the hospital for an acute kidney injury with hypotension. He was discharged home on 03/10/2025. He states that he was doing well and after he was discharged home he started to develop pain in bilateral ankles and the right great toe. He had discussed this with his PCP who diagnosed him with gout and provided a prescription for allopurinol 100 mg p.o. daily. He states he only took 1 dose of this before presenting to the emergency department yesterday. Review of Systems Review of Systems: Yes all other systems are reviewed and are negative PMF Past Medical History Medical History Vitamin D deficiency Allergic rhinitis Chronic kidney disease, stage III (moderate) Hyperuricemia GERD without esophagitis Pure hypercholesterolemia Diabetes mellitus Essential hypertension Family History Family History Father Alzheimers disease Mother Diabetes Brother No problems noted. Sister No problems noted. Son No problems noted. Surgical History Surgical History History of drainage of abscess History of cataract surgery Social History Social History Household Members: Spouse Housing: House Do you presently have visiting nurse or other home services: No Unable to assess alcohol history related to: Unknown Alcohol intake: never Patient Tobacco Use Status: Former Tobacco user Tobacco use type: Cigarette e-Cigarette/Vaping Use: Never Used Second Hand Smoke Exposure: No Advance Directives: No Advance Directives Information Provided: Yes Nutrition Risks: No Nutritional Risk service: No Current occupational status: retired Cognitive needs: No Hearing needs: No Vision needs: Yes Travel History Ebola Risk: Travel/Contact With Anyone From Affected Area/s: No Has Patient Experienced Ebola Symptoms: No Meds Allergies Allergy/AdvReac Type Severity Reaction Status Date / Time No Known Allergies Allergy Verified 03/12/25 18:52 Active Medications: Current Medications Acetaminophen (Acetaminophen 325 Mg Tablet) 650 mg PO Q6H PRN PRN Reason: Pain, Mild 1-3,fever,headache Albuterol/Ipratropium (Albuterol/Iprat 2.5/0.5mg 3 Ml Ampul.Neb) 3 ml INHALE Q4H PRN PRN Reason: Shortness of Breath/Wheezing Allopurinol (Allopurinol 100 Mg Tablet) 100 mg PO DAILY [facility] Calcium Carbonate (Calcium Carbonate 750 Mg Tab.Chew) 750 mg PO Q4H PRN PRN Reason: Heartburn Ceftriaxone Sodium (Ceftriaxone Sodium 1 Gm Vial) 1 gm IVPUSH Q24H [facility] Cyclobenzaprine HCl (Cyclobenzaprine Hcl 5 Mg Tablet) 5 mg PO BEDTIME PRN PRN Reason: Muscle Spasm Dextrose (Dextrose 50 % 25 Gm/50 Ml Syringe) 25 gm IVPUSH Q15M PRN; Protocol PRN Reason: per Hypoglycemia Standing Ord. Enoxaparin Sodium (Enoxaparin Sodium 40 Mg/0.4 Ml Syringe) 40 mg SUBCUT Q24H [facility] Last Admin: 03/13/25 08:46 Dose: 40 mg Glucose (Glucose Gel 15 Gm Gel..Gram.) 15 gm PO Q15M PRN; Protocol PRN Reason: per Hypoglycemia Standing Ord. Sodium Chloride (Ns) 1,000 mls @ 100 mls/hr IVCONT .Q10H [facility] Last Admin: 03/13/25 04:14 Dose: 100 mls/hr Insulin Human Lispro (Insulin Lispro 100 Unit/Ml 3 Ml Vial) 0 unit SUBCUT QIDACHS [facility]; Protocol Last Admin: 03/13/25 07:25 Dose: Not Given Magnesium Hydroxide (Milk Of Magnesia 30 Ml Oral.Susp) 30 ml PO DAILY PRN PRN Reason: Constipation Melatonin (Melatonin 3 Mg Tablet) 6 mg PO BEDTIME PRN PRN Reason: Insomnia Non-Formulary Medication (Lovastatin) 20 mg PO DAILY [facility] Omeprazole (Omeprazole 20 Mg Capsule.) 20 mg PO DAILY@0630 [facility] Last Admin: 03/13/25 06:19 Dose: 20 mg Omeprazole (Omeprazole 20 Mg Capsule.) 20 mg PO DAILY@0630 [facility] Ondansetron HCl (Ondansetron Hcl 4 Mg/2 Ml Vial) 4 mg IVPUSH Q8H PRN PRN Reason: Nausea and Vomiting Senna (Sennosides 8.6 Mg Tablet) 17.2 mg PO BEDTIME TIMO Sodium Chloride (0.9 % Sodium Chloride Flush 3 Ml Syringe) 3 ml IVFLUSH QSHIFT TIMO Last Admin: 03/13/25 07:10 Dose: Not Given Home Medications ?Medication ?Instructions ?Recorded ?Confirmed ?Last Taken ?Type acetaminophen 650 mg 1,300 mg PO Q8H PRN Pain 03/09/25 03/13/25 03/09/25 History tablet,extended release clotrimazole-betamethasone 1 1 appl topical BID PRN Rash 03/09/25 03/13/25 Unknown History %-0.05 % topical cream glipizide 2.5 mg tablet, extended 2.5 mg PO Q48H 03/09/25 03/13/25 03/12/25 History release 24 hr omeprazole 20 mg capsule,delayed 20 mg PO DAILY@0630 03/09/25 03/13/25 03/12/25 History release Physical Exam Vital Signs: Vital Signs: Last Vital Signs Temp 97.7 F 03/13/25 05:57 Pulse 103 H 03/13/25 08:47 Resp 18 03/13/25 08:47 BP 127/71 03/13/25 08:47 Pulse Ox 96 03/13/25 08:47 O2 Del Method Room Air 03/13/25 08:47 BMI result Body Mass Index 24.9 Const: General: cooperative, healthy appearing and no acute distress Resp: Effort & Inspection: normal respiratory effort and able to speak in complete sentences Extrem: Other: Right/Left ankle: Normal to inspection no ecchymosis or erythema. I do not appreciate any edema bilateral ankles. Patient is able to dorsiflex and plantar flex. Tenderness to palpation over the 1st MTP. There is no signs of septic joint in bilateral ankles or bilateral great toes. Sensation is intact. Pedal pulse intact. Cap refill is brisk. Results Labs 03/13/25 04:06 03/13/25 04:06 Labs: Abnormal lab results 03/12/25 03/12/25 03/13/25 Range/Units 19:26 20:11 02:00 WBC 15.1 H (4.8-10.8) X10*3/uL RBC 3.91 L (4.60-5.80) X10*6/uL Hgb 10.8 L (14.0-18.0) g/dl Hct 31.1 L (42.0-52.0) % MCV 79.5 L (80.0-98.0) fL Immature Gran % (Auto) 0.6 H (0.0-0.4) % Neut % (Auto) 73.8 H (45-73) % Lymph % (Auto) 8.9 L (20-40) % Craig % (Auto) 15.8 H (2-11) % Lymph # (Auto) (1.2-4.9) X10*3/uL Craig # (Auto) 2.4 H (0.1-1.2) X10*3/uL Abs Immat Gran (auto) 0.09 H (0.00-0.03) X10*3/uL Absolute Neuts (auto) 11.1 H (2.0-8.3) x10*3/uL ESR 91 H (0-15) MM/HR Chloride (96-108) mmol/L Carbon Dioxide 19 L (22-29) mmol/L BUN 47 H (9-16) mg/dL Creatinine 1.57 H (0.5-1.4) mg/dL Random Glucose 117 H (60-115) mg/dL Magnesium (1.6-2.6) mg/dL C-Reactive Protein 30.08 H (< or = 0.50) mg/dL B-Natriuretic Peptide 184 H (<100) pg/mL Albumin (3.5-5.0) g/dL 03/13/25 Range/Units 04:06 WBC 15.6 H (4.8-10.8) X10*3/uL RBC 3.64 L (4.60-5.80) X10*6/uL Hgb 10.0 L (14.0-18.0) g/dl Hct 28.7 L (42.0-52.0) % MCV 78.8 L (80.0-98.0) fL Immature Gran % (Auto) (0.0-0.4) % Neut % (Auto) 78.6 H (45-73) % Lymph % (Auto) 6.9 L (20-40) % Craig % (Auto) 13.3 H (2-11) % Lymph # (Auto) 1.1 L (1.2-4.9) X10*3/uL Craig # (Auto) 2.1 H (0.1-1.2) X10*3/uL Abs Immat Gran (auto) 0.07 H (0.00-0.03) X10*3/uL Absolute Neuts (auto) 12.3 H (2.0-8.3) x10*3/uL ESR (0-15) MM/HR Chloride 109 H (96-108) mmol/L Carbon Dioxide 17 L (22-29) mmol/L BUN 39 H (9-16) mg/dL Creatinine (0.5-1.4) mg/dL Random Glucose 118 H (60-115) mg/dL Magnesium 1.5 L (1.6-2.6) mg/dL C-Reactive Protein (< or = 0.50) mg/dL B-Natriuretic Peptide (<100) pg/mL Albumin 3.3 L (3.5-5.0) g/dL H & H 03/12/25 03/13/25 Range/Units 19:26 04:06 Hgb 10.8 L 10.0 L (14.0-18.0) g/dl Hct 31.1 L 28.7 L (42.0-52.0) % All other labs normal. Assessment and Plan (1) Gout: Status: Acute There is no evidence of septic joint at this time in bilateral ankles or bilateral great toes Medicine to manage gout - anti-inflammatories as appropriate in the setting of a recent LEXX Continue allopurinol 100 mg p.o. daily that was provided by PCP Patient can follow up with PCP for continued management and prevention of gout Procedures Date of Service Date of Service: 03/13/25
[2025-03-13 12:14] LABS: Glucose, Whole Blood 118 mg/dL (60-115)
--- NOTE | 2025-03-13 15:59 | PC.NURSE ---
bob Flores admitted for fever in a ED stretcher awaiting admission bed assignment. he was repositioned for comfort. Family is at the bedside. Negative VQ scan for a PE. No acute SOB or complaints. He appears to be eating and taking po fluids without difficulties. Call bed in place. Urinal emptied of approx 300 ml urine
--- NOTE | 2025-03-13 17:15 | PC.NURSE ---
PT placed in hospital bed for comfort. He requires max assist of 1 for pivot transfer.
[2025-03-13 18:08] LABS: Glucose, Whole Blood 102 mg/dL (60-115)
--- NOTE | 2025-03-13 19:00 | PC.NURSE ---
this rn assumed care of pt, pt sitting up in bed eating dinner, pt offers no complaints at this time
[2025-03-13 22:02] LABS: Glucose, Whole Blood 129 mg/dL (60-115)
[2025-03-14] VITALS (7 sets, daily range): BP systolic 121–145; BP diastolic 55–93; PULSE 85–121; RESP 16–20; TEMP 36.4–37.4; O2SAT 95–98; BMI 24.5
[2025-03-14 07:27] LABS: Chlamydia pneumoniae PCR Not Detected (Not Detect.); Coronavirus 229E PCR Not Detected (Not Detect.); Coronavirus HKU1 PCR Not Detected (Not Detect.); Coronavirus NL63 PCR Not Detected (Not Detect.); Coronavirus OC43 PCR Not Detected (Not Detect.); Influenza A H1 PCR Not Detected (Not Detect.); Influenza A H1-2009 PCR Not Detected (Not Detect.); Influenza A H3 PCR Not Detected (Not Detect.); RSV PCR Not Detected (Not Detect.); Rhino/Enterovirus PCR Not Detected (Not Detect.); SARS-CoV-2 PCR Not Detected (Not Detect.)
[2025-03-14 07:30] LABS: Glucose, Whole Blood 118 mg/dL (60-115)
[2025-03-14] MEDS: 0.9 % Sodium Chloride Flush 3 ML SYRINGE IVFLUSH ×3 (07:48→20:44)
--- NOTE | 2025-03-14 09:38 | P.PNIM_ITS ---
Subjective Subjective Date of Service: 03/14/25 Review of Systems Follow up fever, lower extremity swelling Feeling better today, sitting up in a chair Physical Exam 2 Vital Signs: Vital Signs: Last Vital Signs Temp 98.5 F 03/14/25 08:00 Pulse 111 H 03/14/25 08:00 Resp 20 03/14/25 08:00 BP 129/76 03/14/25 08:00 Pulse Ox 98 03/14/25 08:00 O2 Del Method Room Air 03/14/25 08:00 BMI result Body Mass Index 24.5 Appearing in no acute distress lung sounds are clear to auscultation heart regular rate rhythm, clear S1, S2 positive bowel sounds, abdomen is soft, nontender neuro patient is alert x3, no focal deficits Objective Data Active Medications Acetaminophen (Acetaminophen 325 Mg Tablet) 650 mg PO Q6H PRN PRN Reason: Pain, Mild 1-3,fever,headache Last Admin: 03/14/25 07:47 Dose: 650 mg Documented By: HUNG Albuterol/Ipratropium (Albuterol/Iprat 2.5/0.5mg 3 Ml Ampul.Neb) 3 ml INHALE Q4H PRN PRN Reason: Shortness of Breath/Wheezing Allopurinol (Allopurinol 100 Mg Tablet) 100 mg PO DAILY COUNT INCLUDES [facility] Last Admin: 03/14/25 07:47 Dose: 100 mg Documented By: HUNG Calcium Carbonate (Calcium Carbonate 750 Mg Tab.Chew) 750 mg PO Q4H PRN PRN Reason: Heartburn Cyclobenzaprine HCl (Cyclobenzaprine Hcl 5 Mg Tablet) 5 mg PO BEDTIME PRN PRN Reason: Muscle Spasm Dextrose (Dextrose 50 % 25 Gm/50 Ml Syringe) 25 gm IVPUSH Q15M PRN; Protocol PRN Reason: per Hypoglycemia Standing Ord. Enoxaparin Sodium (Enoxaparin Sodium 40 Mg/0.4 Ml Syringe) 40 mg SUBCUT Q24H COUNT INCLUDES THE [facility] Last Admin: 03/14/25 07:47 Dose: 40 mg Documented By: HUNG Glucose (Glucose Gel 15 Gm Gel..Gram.) 15 gm PO Q15M PRN; Protocol PRN Reason: per Hypoglycemia Standing Ord. Insulin Human Lispro (Insulin Lispro 100 Unit/Ml 3 Ml Vial) 0 unit SUBCUT QIDACHS COUNT INCLUDES THE [facility]; Protocol Last Admin: 03/14/25 07:31 Dose: Not Given Documented By: HUNG Non-Admin Reason: No Insulin Coverage Magnesium Hydroxide (Milk Of Magnesia 30 Ml Oral.Susp) 30 ml PO DAILY PRN PRN Reason: Constipation Melatonin (Melatonin 3 Mg Tablet) 6 mg PO BEDTIME PRN PRN Reason: Insomnia Metoprolol Tartrate (Metoprolol Tartrate 12.5 Mg Halftab) 12.5 mg PO BID COUNT INCLUDES THE [facility]; Protocol Omeprazole (Omeprazole 20 Mg Capsule.Dr) 20 mg PO DAILY@629 COUNT INCLUDES THE [facility] Last Admin: 03/14/25 05:13 Dose: Not Given Documented By: ANA Non-Admin Reason: Patient Asleep Omeprazole (Omeprazole 20 Mg Capsule.Dr) 20 mg PO DAILY@629 COUNT INCLUDES THE [facility] Last Admin: 03/14/25 05:12 Dose: Not Given Documented By: ANA Non-Admin Reason: duplicate Ondansetron HCl (Ondansetron Hcl 4 Mg/2 Ml Vial) 4 mg IVPUSH Q8H PRN PRN Reason: Nausea and Vomiting Pravastatin Sodium (Pravastatin Sodium 20 Mg Tablet) 20 mg PO DAILY COUNT INCLUDES THE [facility] Last Admin: 03/14/25 07:47 Dose: 20 mg Documented By: HUNG Senna (Sennosides 8.6 Mg Tablet) 17.2 mg PO BEDTIME COUNT INCLUDES THE [facility] Last Admin: 03/13/25 23:46 Dose: Not Given Documented By: ANA Non-Admin Reason: Patient Refused Sodium Chloride (0.9 % Sodium Chloride Flush 3 Ml Syringe) 3 ml IVFLUSH QSHIFT COUNT INCLUDES THE [facility] Last Admin: 03/14/25 07:48 Dose: 3 ml Documented By: HUNG Labs 03/14/25 09:30 03/14/25 09:30 Labs: Laboratory Results - last 24 hr 03/13/25 03/13/25 03/13/25 12:10 12:12 18:05 POC Glucose 118 H 102 Respiratory Panel Briones See Note Adenovirus (Rapid PCR) Not Detected B.pert (TEM-PCR) Not Detected B.parapertussis DNA PCR Not Detected C. pneumoniae DNA (PCR) Not Detected Coronavirus OC43 (PCR) Not Detected Coronavirus HKU1 (PCR) Not Detected Coronavirus 229E (PCR) Not Detected Coronavirus NL63 (PCR) Not Detected Human Metapneumovir PCR Not Detected Influenza A (RT-PCR) Not Detected Influenza A (H1) PCR Not Detected Influ A (H1/09) PCR Not Detected Influenza A (H3) PCR Not Detected Influenza B (RT-PCR) Not Detected M. pneumoniae (PCR) Not Detected Parainfluenza 1 (PCR) Not Detected Parainfluenza 2 (PCR) Not Detected Parainfluenza 3 (PCR) Not Detected Parainfluenza 4 (PCR) Not Detected RSV (PCR) Not Detected Entero/Rhino (PCR) Not Detected SARS-CoV-2 RNA (RT-PCR) Not Detected 03/13/25 03/14/25 21:59 07: POC Glucose 129 H 118 H Respiratory Panel Briones Adenovirus (Rapid PCR) B.pert (TEM-PCR) B.parapertussis DNA PCR C. pneumoniae DNA (PCR) Coronavirus OC43 (PCR) Coronavirus HKU1 (PCR) Coronavirus 229E (PCR) Coronavirus NL63 (PCR) Human Metapneumovir PCR Influenza A (RT-PCR) Influenza A (H1) PCR Influ A (H1/09) PCR Influenza A (H3) PCR Influenza B (RT-PCR) M. pneumoniae (PCR) Parainfluenza 1 (PCR) Parainfluenza 2 (PCR) Parainfluenza 3 (PCR) Parainfluenza 4 (PCR) RSV (PCR) Entero/Rhino (PCR) SARS-CoV-2 RNA (RT-PCR) Microbiology Microbiology Results: Microbiology 03/13/25 02:30 Blood Culture - Preliminary Blood - Venous No growth after 24 hours. 03/13/25 02:00 Blood Culture - Preliminary Blood - Venous No growth after 24 hours. Assessment and Plan (1) Hypertension: Status: Acute Plan 75-year-old man admitted with fever, foot pain and leukocytosis. Ankle xrays note B malleolar swelling with possible small ankle effusions. Pt had been admitted March 09 for neck pain and LEXX with noted hypotension. Pt was discharged on March 10 noting improved BP and renal function off meloxicam and antihypertensives. Pt did well with tylenol and lidocaine patch for neck pain and source is degenerative changes in C5 - C6. Fever. Resolved Continue leukocytosis with unknown infectious source UA negative for UTI, CT of the chest negative pneumonia, noted nonobstructing left nephrolithiasis without evidence of pyelonephritis Blood cultures neg after 24 hrs CRP and ESR Tick-borne panel pending, but less likely ceftriaxone empirically, stopped s/p IV fluids could be gout flare causing symptoms as gout can cause fever, leukocytosis Bilateral ankle fusions with malleolar swelling Ortho consultation> no intervention, continue allopurinol stop Ceftriaxone Keep extremities elevated Uric acid normal CRP and ESR are elevated with noted leukocytosis of 15 Dopplers Neg for DVT Tachycardia with elevated DDIMER 888 likely secondary to fever V/Q scan shows low probability No right heart strain on EKG No evidence of hypoxia echo results pending Started on metoprolol 12.5 mg b.i.d. Punctate Left nonobstructing nephrolithiasis Noted on CT chest and also on CT of the abdomen and pelvis with previous admission on March 09 UA is negative for UTI, hematuria or proteinuria Microcytic anemia No obvious bleeding Monitor CBC CKD IIIB Avoid nephrotoxic drugs including NSAIDs Follow-up with nephrology as an outpatient UA negative for proteinuria and hematuria History of gout Uric acid 6.2 Continue allopurinol No indication for colchicine Elevated BNP Echo ordered, results pending Telemetry NIDDM 2 Sliding scale insulin Diabetic diet GERD Omeprazole HLD DVT prophylaxis: Lovenox Full Code Status Quality Stroke Does the patient have a stroke diagnosis?: No Reason for No Anti-thrombotic by Day Two: N/A - Med Ordered VTE Prior VTE?: No VTE Risk Level:: Medical - moderate - high VTE Device Contraindication: N/A - Device Ordered VTE Drug Contraindication: N/A - Med Ordered
[2025-03-14 09:39] LABS: Hematocrit 30.9 % (42.0-52.0); Hemoglobin 10.6 g/dl (14.0-18.0); Mean Corpuscular HGB Conc 34.3 g/dl (31.0-36.0); Mean Corpuscular Hemoglobin 27.3 pg (27.0-33.0); Mean Corpuscular Volume 79.6 fL (80.0-98.0); NRBC Abs Auto 0.000 X10*3/uL (0.0-0.012); NRBC Pct Auto 0.0 /100WBC (0.0-0.2); Platelet Count 369 X10*3/uL (160-400); Red Blood Count 3.88 X10*6/uL (4.60-5.80); White Blood Count 18.7 X10*3/uL (4.8-10.8)
[2025-03-14 09:56] LABS: Anion Gap 14 (12-20); Blood Urea Nitrogen 29 mg/dL (9-16); Calcium 9.0 mg/dL (8.4-10.2); Carbon Dioxide 20 mmol/L (22-29); Chloride 106 mmol/L (96-108); Creatinine Clr Calc Pharmacy 52.1; Estimated Glomerular Filt Rate > 60; Magnesium 1.5 mg/dL (1.6-2.6); Potassium 4.4 mmol/L (3.3-5.1); Sodium 136 mmol/L (135-145)
[2025-03-14 09:58] LABS: B Type Natriuretic Peptide 499 pg/mL (<100)
[2025-03-14] MEDS: Metoprolol Tartrate 12.5 MG HALFTAB PO ×2 (10:18→20:43)
[2025-03-14] MEDS: Magnesium Sulfate/H2O 2 GM/50 ML PIGGYBACK IV (11:16)
[2025-03-14 11:27] LABS: Glucose, Whole Blood 168 mg/dL (60-115)
--- NOTE | 2025-03-14 13:58 | MHC.CM.PN ---
PT evaluated pt and recommend STR. This CM met with pt to discuss STR, he is in agreement with going. Pt states he doesn't have a preferred facility, but would like to stay close to [place]. Referrals sent via [facility], awaiting bed offer.
[2025-03-14 16:08] LABS: Glucose, Whole Blood 114 mg/dL (60-115)
[2025-03-14 21:23] LABS: Glucose, Whole Blood 135 mg/dL (60-115)
[2025-03-15 03:32] VITALS: BP 135/64; PULSE 104; RESP 16; TEMP 37.6; O2SAT 95
[2025-03-15 04:44] LABS: A. Phagocytphilium DNA,RT-PCR NOT DETECTED (NOT DETECTED); Babesia Microti DNA, RT-PCR NOT DETECTED (NOT DETECTED); Borrelia Miyamotoi,DNA RT-PCR NOT DETECTED (NOT DETECTED); E.Chaffeensis DNA RT-PCR NOT DETECTED (NOT DETECTED); Lyme(Borrelia ssp)DNA RT-PCR NOT DETECTED (NOT DETECTED)
[2025-03-15 06:00] VITALS: BMI 24.2
[2025-03-15 07:18] VITALS: BP 119/63; PULSE 100; RESP 19; TEMP 36.6; O2SAT 96
[2025-03-15 07:36] LABS: Glucose, Whole Blood 110 mg/dL (60-115)
[2025-03-15] MEDS: Metoprolol Tartrate 12.5 MG HALFTAB PO ×2 (08:07→21:16)
[2025-03-15] MEDS: 0.9 % Sodium Chloride Flush 3 ML SYRINGE IVFLUSH ×3 (08:09→21:18)
[2025-03-15 09:06] LABS: Hematocrit 30.4 % (42.0-52.0); Hemoglobin 10.2 g/dl (14.0-18.0); Mean Corpuscular HGB Conc 33.6 g/dl (31.0-36.0); Mean Corpuscular Hemoglobin 27.2 pg (27.0-33.0); Mean Corpuscular Volume 81.1 fL (80.0-98.0); NRBC Abs Auto 0.000 X10*3/uL (0.0-0.012); NRBC Pct Auto 0.0 /100WBC (0.0-0.2); Platelet Count 398 X10*3/uL (160-400); Red Blood Count 3.75 X10*6/uL (4.60-5.80); White Blood Count 19.1 X10*3/uL (4.8-10.8)
--- NOTE | 2025-03-15 10:18 | P.PNIM_ITS ---
Subjective Subjective Date of Service: 03/15/25 Review of Systems Follow up fever, lower extremity swelling Feeling better today, sitting up in a chair Physical Exam 2 Vital Signs: Vital Signs: Last Vital Signs Temp 97.8 F 03/15/25 07:18 Pulse 100 03/15/25 07:18 Resp 19 03/15/25 07:18 BP 119/63 03/15/25 07:18 Pulse Ox 96 03/15/25 07:18 O2 Del Method Room Air 03/15/25 07:18 BMI result Body Mass Index 24.2 Appearing in no acute distress lung sounds are clear to auscultation heart regular rate rhythm, clear S1, S2 positive bowel sounds, abdomen is soft, nontender neuro patient is alert x3, no focal deficits Objective Data Active Medications Acetaminophen (Acetaminophen 325 Mg Tablet) 650 mg PO Q6H PRN PRN Reason: Pain, Mild 1-3,fever,headache Last Admin: 03/15/25 08:07 Dose: 650 mg Documented By: CRYSTAL Albuterol/Ipratropium (Albuterol/Iprat 2.5/0.5mg 3 Ml Ampul.Neb) 3 ml INHALE Q4H PRN PRN Reason: Shortness of Breath/Wheezing Allopurinol (Allopurinol 100 Mg Tablet) 100 mg PO DAILY [facility] Last Admin: 03/15/25 08:07 Dose: 100 mg Documented By: CRYSTAL Calcium Carbonate (Calcium Carbonate 750 Mg Tab.Chew) 750 mg PO Q4H PRN PRN Reason: Heartburn Cyclobenzaprine HCl (Cyclobenzaprine Hcl 5 Mg Tablet) 5 mg PO BEDTIME PRN PRN Reason: Muscle Spasm Dextrose (Dextrose 50 % 25 Gm/50 Ml Syringe) 25 gm IVPUSH Q15M PRN; Protocol PRN Reason: per Hypoglycemia Standing Ord. Enoxaparin Sodium (Enoxaparin Sodium 40 Mg/0.4 Ml Syringe) 40 mg SUBCUT Q24H [facility] Last Admin: 03/15/25 08:07 Dose: 40 mg Documented By: CRYSTAL Glucose (Glucose Gel 15 Gm Gel..Gram.) 15 gm PO Q15M PRN; Protocol PRN Reason: per Hypoglycemia Standing Ord. Insulin Human Lispro (Insulin Lispro 100 Unit/Ml 3 Ml Vial) 0 unit SUBCUT QIDACHS [facility]; Protocol Last Admin: 03/15/25 07:41 Dose: Not Given Documented By: CRYSTAL Non-Admin Reason: No Insulin Coverage Magnesium Hydroxide (Milk Of Magnesia 30 Ml Oral.Susp) 30 ml PO DAILY PRN PRN Reason: Constipation Melatonin (Melatonin 3 Mg Tablet) 6 mg PO BEDTIME PRN PRN Reason: Insomnia Metoprolol Tartrate (Metoprolol Tartrate 12.5 Mg Halftab) 12.5 mg PO BID [facility]; Protocol Last Admin: 03/15/25 08:07 Dose: 12.5 mg Documented By: CRYSTAL Omeprazole (Omeprazole 20 Mg Capsule.Dr) 20 mg PO DAILY@0630 [facility] Last Admin: 03/15/25 06:14 Dose: 20 mg Documented By: LISY Ondansetron HCl (Ondansetron Hcl 4 Mg/2 Ml Vial) 4 mg IVPUSH Q8H PRN PRN Reason: Nausea and Vomiting Pravastatin Sodium (Pravastatin Sodium 20 Mg Tablet) 20 mg PO DAILY [facility] Last Admin: 03/15/25 08:07 Dose: 20 mg Documented By: CRYSTAL Senna (Sennosides 8.6 Mg Tablet) 17.2 mg PO BEDTIME [facility] Last Admin: 03/14/25 20:44 Dose: 17.2 mg Documented By: LISY Sodium Chloride (0.9 % Sodium Chloride Flush 3 Ml Syringe) 3 ml IVFLUSH QSHIFT [facility] Last Admin: 03/15/25 08:09 Dose: 3 ml Documented By: CRYSTAL Labs 03/15/25 08:39 03/14/25 09:30 Labs: Laboratory Results - last 24 hr 03/13/25 03/14/25 03/14/25 04:06 11:18 16:03 MCV MCH MCHC RDW Plt Count MPV Absolute Nucleated RBC Nucleated RBC % (auto) POC Glucose 168 H 114 A.phagocytophil DNA PCR NOT DETECTED Babesia microti DNA PCR NOT DETECTED Borrelia sp DNA (PCR) NOT DETECTED Borrelia miyamotoi (PCR) NOT DETECTED E.chaffeensis DNA (PCR) NOT DETECTED Tick-borne Disease PCR SEE NOTE 03/14/25 03/15/25 03/15/25 21:13 07:21 08:39 MCV 81.1 MCH 27.2 MCHC 33.6 RDW 13.6 Plt Count 398 MPV 10.8 Absolute Nucleated RBC 0.000 Nucleated RBC % (auto) 0.0 POC Glucose 135 H 110 A.phagocytophil DNA PCR Babesia microti DNA PCR Borrelia sp DNA (PCR) Borrelia miyamotoi (PCR) E.chaffeensis DNA (PCR) Tick-borne Disease PCR Microbiology Microbiology Results: Microbiology 03/13/25 02:30 Blood Culture - Preliminary Blood - Venous No growth after 48 hours. 03/13/25 02:00 Blood Culture - Preliminary Blood - Venous No growth after 48 hours. Assessment and Plan (1) Hypertension: Status: Acute Plan 75-year-old man admitted with fever, foot pain and leukocytosis. Ankle xrays note B malleolar swelling with possible small ankle effusions. Pt had been admitted March 09 for neck pain and LEXX with noted hypotension. Pt was discharged on March 10 noting improved BP and renal function off meloxicam and antihypertensives. Pt did well with tylenol and lidocaine patch for neck pain and source is degenerative changes in C5 - C6. Fever. Resolved Continue leukocytosis with unknown infectious source UA negative for UTI, CT of the chest negative pneumonia, noted nonobstructing left nephrolithiasis without evidence of pyelonephritis Blood cultures neg after 24 hrs CRP and ESR Tick-borne panel negative ceftriaxone empirically, stopped s/p IV fluids could be gout flare causing symptoms as gout can cause fever, leukocytosis Bilateral ankle fusions with malleolar swelling Ortho consultation> no intervention, continue allopurinol stopped Ceftriaxone Keep extremities elevated Uric acid normal CRP and ESR are elevated with noted leukocytosis of 15 Dopplers Neg for DVT Tachycardia with elevated DDIMER 888 likely secondary to fever V/Q scan shows low probability No right heart strain on EKG No evidence of hypoxia echo results pending Started on metoprolol 12.5 mg b.i.d. Punctate Left nonobstructing nephrolithiasis Noted on CT chest and also on CT of the abdomen and pelvis with previous admission on March 09 UA is negative for UTI, hematuria or proteinuria Microcytic anemia No obvious bleeding Monitor CBC CKD IIIB Avoid nephrotoxic drugs including NSAIDs Follow-up with nephrology as an outpatient UA negative for proteinuria and hematuria History of gout Uric acid 6.2 Continue allopurinol No indication for colchicine Elevated BNP Echo EF 55-60% no CHF Telemetry NIDDM 2 Sliding scale insulin Diabetic diet GERD Omeprazole HLD statin DVT prophylaxis: Lovenox Full Code Status Quality Stroke Does the patient have a stroke diagnosis?: No Reason for No Anti-thrombotic by Day Two: N/A - Med Ordered VTE Prior VTE?: No VTE Risk Level:: Medical - moderate - high VTE Device Contraindication: N/A - Device Ordered VTE Drug Contraindication: N/A - Med Ordered
[2025-03-15 11:02] VITALS: BP 121/75; PULSE 91; RESP 18; TEMP 36.6; O2SAT 96
[2025-03-15 11:16] LABS: Glucose, Whole Blood 122 mg/dL (60-115)
--- NOTE | 2025-03-15 11:29 | P.DS_ITS ---
DS: Providers Provider Date of Service: 03/15/25 <Regine Wise NP - Last Filed: 03/15/25 11:35> Date of admission: 03/13/25 03:07 <Regine Wise NP - Last Filed: 03/15/25 11:35> Date of discharge: 03/15/25 <Regine Wise NP - Last Filed: 03/15/25 11:35> Primary care physician: Abdullahi Villela MD <Regine Wise NP - Last Filed: 03/15/25 11:35> Consults: 03/13/25 04:08 Consult to Orthopedics Routine Consulting Provider: [facility] Reason for consultation: B ankle effusions, malleolar swelling, fever Has provider been notified: No <Regine Wise NP - Last Filed: 03/15/25 11:35> Attending physician on discharge: Lai Irizarry <VILMA Multani - Last Filed: 03/16/25 10:34> Discharging clinician: Kaleigh Malave <VILMA Multani - Last Filed: 03/16/25 10:34> DS: Diagnosis Discharge Diagnosis (1) Hypertension: Status: Acute <Regine Wise NP - Last Filed: 03/15/25 11:35> DS: Summary Hospital Course Hospital Course: History and physical as per admitting provider. Patient is a 75-year-old male, Danish speaking with past medical history [id number] diabetes, osteoarthritis, gout, allergic rhinitis, chronic kidney disease stage 3 with recent LEXX, , GERD, hyperlipidemia and hypertension presents back to the ED after being discharged on March 10 for neck pain and LEXX with complaints today of bilateral ankle and foot swelling with pain and fever. Patient states the right big toe is especially painful. Patient has a noted leukocytosis of 15. Patient has max temp of 100.2 degrees. Patient is currently alert and orientated x3, UA is negative. Lactic acid also normal at 1.0. Pt is on room air. Bilateral feet are warm to the touch with no obvious evidence of cellulitis. Bilateral foot x-rays and ankle x-rays are negative for acute findings but there is questionable small ankle effusions present. Dopplers for DVT are also negative bilaterally. ED ordered D-dimer that is elevated at 888 and patient is tachycardic. Patient can not undergo a CTA due to chronic kidney disease so V/Q scan will be ordered in the a.m.. Patient is not normally on anticoagulation. Patient has no evidence of hypoxia or right heart strain on EKG. CT of the chest pending. Patient states when he was discharged on March 10 noting his renal function did improve and the neck pain resolved qith tylenol and lidocaine patch. CT of the cervical spine noted degenerative changes at C5- C6 where there is moderate to severe right greater than left foraminal narrowing Patient was stopped on meloxicam and his antihypertensives noting his low blood pressure upon arrival. Patient's blood pressure currently stable. Renal function shows a GFR of 43. UA again is negative for UTI with no hematuria or proteinuria. CT of the abdomen done on previous admission noted a left nephrolithiasis without evidence of obstruction or hydronephrosis. Patient was s tarted on ceftriaxone empirically in the ED. Blood cultures x2 pending. Pt received fluid bolus. ESR and CRP are also both elevated. Patient does have history of osteoarthritis. Ankle xray noted for Bimalleolar swelling and possible small ankle effusions. Uric acid level pending. Fever. Resolved Continue leukocytosis with no identified infectious source. UA negative for UTI, CT of the chest negative pneumonia. Blood cultures neg after 24 hrs Tick-borne panel negative. no abdominal pain, no diarrhea. foot pain - plan film negative for infection could be gout flare causing symptoms as gout can cause fever, leukocytosis. continue allopurinol and will start prendisone. Bilateral ankle fusions with malleolar swelling Ortho consultation> no intervention, continue allopurinol. xrays negative. Keep extremities elevated Uric acid normal Dopplers Neg for DVT Tachycardia with elevated DDIMER 888 likely secondary to fever V/Q scan shows low probability. No right heart strain on EKG. TSH wnl. echo results pending with diastolic dysfunction Started on metoprolol 12.5 mg b.i.d. diastolic CHF BNP near 500 but appears euvolemic. outpatient follow up Punctate Left nonobstructing nephrolithiasis Noted on CT chest and also on CT of the abdomen and pelvis with previous admission on March 09 UA is negative for UTI, hematuria or proteinuria Microcytic anemia No obvious bleeding. CBC has remained stable. CKD IIIB Avoid nephrotoxic drugs including NSAIDs Follow-up with nephrology as an outpatient History of gout Uric acid 6.2 Continue allopurinol <Regine Frandy, [employer] - Last Filed: 03/15/25 11:35> Time Attestation Discharge Coordination Time (in mins): 32 <VILMA Multani Last Filed: 03/16/25 10:34> Quality: Safe Use of Opioids Does Pt have an Active Cancer Diagnosis on the Problem List?: No <VILMA Multani Last Filed: 03/16/25 10:34> Quality: Stroke Does the patient have a stroke diagnosis?: No <VILMA Multani Last Filed: 03/16/25 10:34> Physical Exam Vital Signs: Vital Signs: Last Vital Signs Temp 97.8 F 03/15/25 11:02 Pulse 91 03/15/25 11:02 Resp 18 03/15/25 11:02 BP 121/75 03/15/25 11:02 Pulse Ox 96 03/15/25 11:02 O2 Del Method Room Air 03/15/25 11:02 BMI result Body Mass Index 24.2 <JENI Aguilar Last Filed: 03/15/25 11:35> Appearing in no acute distress head is normocephalic atraumatic eyes pupils are PERRLA sclera is anicteric mouth throat mucous membranes are intact and moist neck is supple no lymphadenopathy, no JVD noted lung sounds are clear to auscultation heart regular rate rhythm, clear S1, S2 positive bowel sounds, abdomen is soft, nontender neuro patient is alert x3, no focal deficits <Regine Wise NP - Last Filed: 03/15/25 11:35> Const: General: cooperative, comfortable, alert and awake <VILMA Multani Last Filed: 03/16/25 10:34> Nutritional Appearance: average body habitus <VILMA Multani Last Filed: 03/16/25 10:34> Orientation/consciousness: patient oriented x3 <VILMA Multani Last Filed: 03/16/25 10:34> Resp: Effort & Inspection: normal respiratory effort, able to speak in complete sentences, no respiratory distress and no use of accessory muscles <VILMA Multani Last Filed: 03/16/25 10:34> GI: Inspection: No distended <VILMA Multani - Last Filed: 03/16/25 10:34> Skin: Other: left wrist with some swelling; left great toe no erythema, mild tenderness on palpation; no significant swelling noted <VILMA Multani Last Filed: 03/16/25 10:34> Neuro: General: patient oriented x3 <VILMA Multani Last Filed: 03/16/25 10:34> DS: Data Data Completed and Pending Labs on day of discharge: Laboratory Results - last 24 hr 03/13/25 03/14/25 03/14/25 04:06 16:03 21:13 WBC RBC Hgb Hct MCV MCH MCHC RDW Plt Count MPV Absolute Nucleated RBC Nucleated RBC % (auto) POC Glucose 114 135 H A.phagocytophil DNA PCR NOT DETECTED Babesia microti DNA PCR NOT DETECTED Borrelia sp DNA (PCR) NOT DETECTED Borrelia miyamotoi (PCR) NOT DETECTED E.chaffeensis DNA (PCR) NOT DETECTED Tick-borne Disease PCR SEE NOTE 03/15/25 03/15/25 03/15/25 07:21 08:39 11:06 WBC 19.1 H RBC 3.75 L Hgb 10.2 L Hct 30.4 L MCV 81.1 MCH 27.2 MCHC 33.6 RDW 13.6 Plt Count 398 MPV 10.8 Absolute Nucleated RBC 0.000 Nucleated RBC % (auto) 0.0 POC Glucose 110 122 H A.phagocytophil DNA PCR Babesia microti DNA PCR Borrelia sp DNA (PCR) Borrelia miyamotoi (PCR) E.chaffeensis DNA (PCR) Tick-borne Disease PCR Preliminary micro results at discharge 03/13/25 02:30 Blood Culture - Preliminary Blood - Venous No growth after 48 hours. 03/13/25 02:00 Blood Culture - Preliminary Blood - Venous No growth after 48 hours. <Regine Wise NP - Last Filed: 03/15/25 11:35> Discharge Plan Discharge Anticipated Discharge Date/Time: 03/16/25 10:30 <Regine Wise NP - Last Filed: 03/15/25 11:35> Patient Disposition: Xfer SNF <Regine Wise NP - Last Filed: 03/15/25 11:35> Discharge Diagnosis: Fever Gout Tachycardia <Regine Wise NP - Last Filed: 03/15/25 11:35> Fever Gout Tachycardia <VILMA Multani - Last Filed: 03/16/25 10:34> Referrals: [facility] [Outside] - 1 Week Abdullahi Villela MD [Primary Care Provider, Internal Medicine] - 1 Week <Regine Wise NP - Last Filed: 03/15/25 11:35> Discharge Medications: New metoprolol tartrate 25 mg tablet 25 mg PO DAILY Qty: 30 0RF magnesium oxide [MagOx] 400 mg (241.3 mg magnesium) tablet 400 mg PO DAILY Qty: 30 0RF prednisone 20 mg tablet 40 mg PO DAILY 5 Days Qty: 10 0RF Continued lovastatin 20 mg tablet 20 mg PO DAILY Qty: 90 8RF cetirizine 10 mg tablet 10 mg PO DAILY PRN (Reason: allergy symptoms) Qty: 90 0RF cyclobenzaprine 5 mg tablet 5 mg PO BEDTIME PRN (Reason: muscle spasm) Qty: 30 0RF omeprazole 20 mg capsule,delayed release(DR/EC) 20 mg PO DAILY@0630 acetaminophen 650 mg Tablet Extended Release 1,300 mg PO Q8H PRN (Reason: Pain) glipizide 2.5 mg tablet extended release 24hr 2.5 mg PO Q48H clotrimazole-betamethasone 1-0.05 % cream 1 appl topical BID PRN (Reason: Rash) cholecalciferol (vitamin D3) 50 mcg (2,000 unit) capsule 50 mcg PO DAILY 90 Days Qty: 90 3RF mometasone 0.1 % cream 1 appl topical DAILY PRN (Reason: rash) Qty: 45 0RF allopurinol 100 mg tablet 100 mg PO DAILY 30 Days Qty: 30 3RF <Regine Wise NP - Last Filed: 03/15/25 11:35> Discharge Orders: Discharge Order (Routine); Ordered 03/16/25 Ordered By: Kaleigh Malave <Regine Wise NP - Last Filed: 03/15/25 11:35> Diet: Advance to usual diet <Regine Wise NP - Last Filed: 03/15/25 11:35> Advance to usual diet <VILMA Multani - Last Filed: 03/16/25 10:34> Activity on Discharge: As tolerated <Regine Wise NP - Last Filed: 03/15/25 11:35> As tolerated <VILMA Multani - Last Filed: 03/16/25 10:34> Stand Alone Forms: Patient Portal Discharge page <Regine Wise NP - Last Filed: 03/15/25 11:35> Print Language: Swedish <Regine Wise NP - Last Filed: 03/15/25 11:35> Care Plan Goals: resolution of symptoms <Regine Wise NP - Last Filed: 03/15/25 11:35> Health Concerns: Fever Gout Tachycardia <Regine Wise NP - Last Filed: 03/15/25 11:35> Plan of Treatment: New allopurinol for gout. Five days of oral prednisone for gout - monitor blood sugar closely while on steroids Recommend repeat CBC after completion of steroids to follow WBC which remains elevated start taking metoprolol recommend outpatient follow up with PCP, possible referral to cardiology - echo showing diastolic disfunction. no evidence of acute CHF Follow up with primary care provider as needed Take all medications as prescribed <Regine Wise NP - Last Filed: 03/15/25 11:35> Assessment: See discharge summary <Regine Wise NP - Last Filed: 03/15/25 11:35>
[2025-03-15 15:30] VITALS: BP 138/65; PULSE 85; RESP 18; TEMP 36.1; O2SAT 96
[2025-03-15 16:15] LABS: Glucose, Whole Blood 99 mg/dL (60-115)
[2025-03-15 19:28] VITALS: BP 131/67; PULSE 100; RESP 18; TEMP 36.8; O2SAT 95
[2025-03-15 21:31] LABS: Glucose, Whole Blood 126 mg/dL (60-115)
[2025-03-15 23:59] VITALS: BP 132/64; PULSE 85; RESP 18; TEMP 37.2; O2SAT 93
[2025-03-16 04:00] VITALS: BP 120/73; PULSE 91; RESP 18; TEMP 37.2; O2SAT 95
[2025-03-16 06:00] VITALS: BMI 23.8
[2025-03-16 07:47] LABS: Glucose, Whole Blood 117 mg/dL (60-115)
[2025-03-16 08:00] VITALS: BP 146/73; PULSE 103; RESP 20; TEMP 36.2; O2SAT 95
[2025-03-16] MEDS: Metoprolol Tartrate 12.5 MG HALFTAB PO (08:43)
[2025-03-16] MEDS: 0.9 % Sodium Chloride Flush 3 ML SYRINGE IVFLUSH (08:44)
--- NOTE | 2025-03-16 10:27 | MHC.CM.PN ---
Second IMM 03/16/25, Pt has been medically cleared, he will go today to [facility] for STR via BLS.
--- NOTE | 2025-03-16 11:06 | P.CDIM_ITS ---
PROVIDER RESPONSE TEXT: To clarify, the appropriate diagnosis supported by the clinical indicators: Diagnosis was ruled out QUERY TEXT: PHYSICIAN'S DOCUMENTATION REQUEST Date of Query: 03/16/2025 10:54 AM EDT Patient Name: Orville Ahumada Admit Date: 03/13/2025 Dear Kaleigh Malave PA, A review of the medical record indicates additional documentation may be needed. Please review below and update the documentation accordingly. Clinical Indicators: H&P 03/13/25- Fever/Sepsis Tachycardia, fever, WBC 15.6, CRP and ESR are elevated Event note 03/13/25 - Fever/Sepsis IV fluids and Tylenol The diagnosis of Sepsis was documented on 03/13/25 in the H&P but is not consistently noted in subsequent documentation. Please clarify the following: Diagnosis was present on admission and is now resolved Diagnosis was present on admission and is still being monitored, evaluated, or treated Diagnosis was ruled out Diagnosis is still a likely, suspected, probable diagnosis After study Sepsis is ruled out Other (explain) Clinically unable to determine (explain) Thank you, Abi Fitzpatrick, CCS, CDIS Use of terms such as suspected, likely, concern for, or probable (associated with a specific diagnosis that is being evaluated, monitored, or treated as if it exists) are acceptable and can be coded in the inpatient setting, when documented at the time of discharge. Please use your independent medical judgment in providing your response. THIS QUERY IS PART OF THE PERMANENT MEDICAL RECORD
== END 2025-03-16 11:21 | disposition skilled nursing facility (03) | DRG 554 ==
LOC: HO.ED 03-13 02:46 → HO.EDOVER 03-13 03:24 → HO.IMC 03-13 19:18
PROVIDERS: Nurse Practitioner Acute Care; Physician Assistant; Physician Assistant Medical; Admitting Provider Nurse Practitioner Family; Emergency Provider Emergency Medicine; PCP Internal Medicine; Visit Provider Physician Assistant Medical
DX: M10.9 Gout, unspecified (principal); I13.0 Hypertensive heart and chronic kidney disease with heart failure and stage 1 through stage 4 chronic kidney disease, or unspecified chronic kidney disease; I50.32 Chronic diastolic (congestive) heart failure; N18.32 Chronic kidney disease, stage 3b; K21.9 Gastro-esophageal reflux disease without esophagitis; E78.5 Hyperlipidemia, unspecified; R00.0 Tachycardia, unspecified; R50.9 Fever, unspecified; D50.9 Iron deficiency anemia, unspecified; N20.0 Calculus of kidney; E11.22 Type 2 diabetes mellitus with diabetic chronic kidney disease; Z20.822 Contact with and (suspected) exposure to COVID-19; Z79.84 Long term (current) use of oral hypoglycemic drugs; Z79.899 Other long term (current) drug therapy
CPT/HCPCS: 36415; 71046; 71250; 73610; 73630; 78580; 80048; 80053; 81003; 82947; 83605; 83735; 83880; 84439; 84443; 84484; 84550; 85025; 85027; 85379; 85652; 86140; 87040; 87468; 87469; 87478; 87484; 87633; 87637; 87798; 93005; 93306; 93970; 97162; 99285; A9540; J0696; J1650; J3475; Q9957

== ENCOUNTER → 2025-03-12 19:49 | Outpatient (BNV) | payer MEDICARE, MEDICAID, SELFPAY | PROVIDERS: Emergency Provider Emergency Medicine; PCP Internal Medicine; Visit Provider Radiology Diagnostic Radiology | DX: M79.661 Pain in right lower leg (principal); M79.662 Pain in left lower leg; R53.1 Weakness; M79.672 Pain in left foot; R22.43 Localized swelling, mass and lump, lower limb, bilateral | CPT/HCPCS: 71046; 73610; 93970 ==

== ENCOUNTER → 2025-03-12 20:02 | Outpatient (BNV) | payer MEDICARE, MEDICAID, SELFPAY | PROVIDERS: Admitting Provider Nurse Practitioner Family; Emergency Provider Emergency Medicine; PCP Internal Medicine; Visit Provider Internal Medicine Cardiovascular Disease | DX: I25.2 Old myocardial infarction (principal); R00.0 Tachycardia, unspecified | CPT/HCPCS: 93010 ==

== ENCOUNTER → 2025-03-13 01:19 | Outpatient (BNV) | payer MEDICARE, MEDICAID, SELFPAY | PROVIDERS: Admitting Provider Nurse Practitioner Family; Emergency Provider Emergency Medicine; PCP Internal Medicine; Visit Provider Radiology Diagnostic Radiology | DX: J98.8 Other specified respiratory disorders (principal); M79.672 Pain in left foot; M79.671 Pain in right foot | CPT/HCPCS: 78580 ==

== ENCOUNTER 2025-03-13 03:07 | Outpatient (BNV) | payer MEDICARE, MEDICAID, SELFPAY | END 2025-03-13 07:00 | PROVIDERS: Admitting Provider Nurse Practitioner Family; Emergency Provider Emergency Medicine; PCP Internal Medicine; Visit Provider Internal Medicine Cardiovascular Disease | DX: I35.8 Other nonrheumatic aortic valve disorders (principal); I51.89 Other ill-defined heart diseases | CPT/HCPCS: 93306 ==

== ENCOUNTER → 2025-03-13 03:07 | Outpatient (BNV) | payer MEDICARE, MEDICAID, SELFPAY | PROVIDERS: Admitting Provider Nurse Practitioner Family; Emergency Provider Emergency Medicine; PCP Internal Medicine; Visit Provider Physician Assistant | DX: M10.9 Gout, unspecified (principal) | CPT/HCPCS: 99222 ==

== ENCOUNTER → 2025-03-13 03:07 | Outpatient (BNV) | payer MEDICARE, MEDICAID, SELFPAY | PROVIDERS: Admitting Provider Nurse Practitioner Family; Emergency Provider Emergency Medicine; PCP Internal Medicine; Visit Provider Nurse Practitioner Acute Care | DX: I10 Essential (primary) hypertension (principal) | CPT/HCPCS: 99232; 99499 ==

== ENCOUNTER → 2025-04-06 23:59 | Outpatient (BNV) | payer MEDICARE, MEDICAID, SELFPAY | PROVIDERS: PCP Internal Medicine; Visit Provider Internal Medicine | DX: I13.0 Hypertensive heart and chronic kidney disease with heart failure and stage 1 through stage 4 chronic kidney disease, or unspecified chronic kidney disease (principal); I50.30 Unspecified diastolic (congestive) heart failure; N18.32 Chronic kidney disease, stage 3b; M10.9 Gout, unspecified; E11.22 Type 2 diabetes mellitus with diabetic chronic kidney disease | CPT/HCPCS: G0180 ==

== ENCOUNTER 2025-04-11 14:46 | Outpatient (AMB) | payer MEDICARE, MEDICAID, SELFPAY ==
--- NOTE | 2025-04-11 14:47 | MHC.OFFVIS ---
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 The patient reports a history of neck pain, which is currently resolved. He experienced severe neck pain in March, leading to an emergency room visit where imaging revealed degenerative changes and spinal stenosis at C5-C6. The patient had a history of a significant cervical spinal stenosis, which was treated non-surgically by stretching the neck to relieve nerve compression, resulting in symptom resolution for 42 years. The patient has a history of acute on chronic kidney failure, which led to hospitalization and subsequent rehabilitation. He reports improvement in kidney function following treatment and resolution of his neck symptoms. The patient reports bilateral ankle and foot swelling, with imaging showing mild degenerative changes and bone spurs at the Achilles tendon and plantar fascia. He also has degenerative changes at the first metatarsophalangeal joint and hallux valgus. The patient experiences pain primarily in the left foot, which was previously swollen and painful, but has improved with physical therapy. The patient is prediabetic with a recent random blood sugar of 117 mg/dL. He is currently managing his condition with lifestyle modifications and medication. The patient has a recent diagnosis of gout, primarily affecting the left foot, which has been managed with medication and physical therapy. He is interested in Podiatry evaluation and management of his chronic foot pain. - Pain is primarily located in the left foot, previously swollen and painful, now improved with physical therapy. - Pain level is currently about 3 out of 10. - Pain exacerbated by tight shoes or socks, relieved by physical therapy and medication. - Affect: Pain has improved, impacting daily activities less. - Analgesia: Currently using Tylenol for pain management, pain level at 3/10. - Adverse Effects: No adverse effects from current pain management reported. - Activities of Daily Living: Pain previously interfered with walking, now improved with physical therapy. - Aberrant Drug Related Behaviors: No aberrant behaviors reported. [facility] Medical History Vitamin D deficiency Allergic rhinitis Chronic kidney disease, stage III (moderate) Hyperuricemia GERD without esophagitis Pure hypercholesterolemia Diabetes mellitus Essential hypertension Surgical History History of drainage of abscess History of cataract surgery Family History Father Alzheimers disease Mother Diabetes Brother No problems noted. Sister No problems noted. Son No problems noted. Social History Household Members: Spouse and Children Housing: Apartment Do you presently have visiting nurse or other home services: No Unable to assess alcohol history related to: Unknown Alcohol intake: never Patient Tobacco Use Status: Former Tobacco user Tobacco use type: Cigarette e-Cigarette/Vaping Use: Never Used Second Hand Smoke Exposure: No service: No Current occupational status: retired Cognitive needs: No Hearing needs: No Vision needs: Yes Review of Systems Const Details: - Musculoskeletal: Reports foot pain, denies neck pain currently. - Endocrine: Reports prediabetes, denies known diabetes. - Renal: Reports history of acute on chronic kidney failure. - Neurological: Denies current neurological deficits. All systems reviewed & are unremarkable except as noted in HPI and below Physical Exam Vital Signs: Last Vital Signs Pulse 68 04/11/25 14:52 BP 186/84 H 04/11/25 14:52 Pulse Ox 96 04/11/25 14:52 Oxygen Delivery Method Room Air 04/11/25 14:52 BMI result Body Mass Index 24.3 General: Appears afebrile. Alert and oriented. Mood and affect appropriate. Follows and participates in conversation appropriately. Respiratory effort is unlabored. No cough. Able to transition from sit to stand unassisted. Ambulates with bilaterally normal heel strike and toe off. Eyes General: appearance normal, both eyes and all related structures Neck Neck: Yes normal visual inspection, Yes full ROM, Yes no lymphadenopathy, Yes supple, No anterior neck swelling, Yes no JVD, No prominent supraclavicular fat pad and No prominent dorsocervical fat pad Back/Spine/Pelvis Cervical Spine: cervical ROM normal, cervical muscular tenderness, No pain with cervical ROM, No Cervical spine tenderness and No step off deformity Thoracic/Lumbar Spine: thoracic and lumbar spine normal to inspection, thoraco-lumbar ROM limited, No thoracic spinal tenderness and No lumbar spinal tenderness Extrem General: Yes capillary refill normal, Yes no calf tenderness, No clubbing, No cyanosis and Yes pedal edema (nonpitting bilateral edema) Results Reviewed Results Reviewed: XR foot RT min 3V 03/13/25 Findings: No fracture deformity. Small enthesophytes at the insertion of the Achilles tendon and plantar fascia on the calcaneus. Hallux valgus. Degenerative changes of the 1st metatarsophalangeal joint. No ankle effusion. No radiopaque foreign body. IMPRESSION: 1. No acute findings. XR foot LT min 3V 03/13/25 CLINICAL HISTORY: pain 3 view left foot Comparison: None provided Findings: No acute fracture deformity. Enthesophytes at the insertion of the Achilles tendon and plantar fascia on the calcaneus. Mild degenerative changes of the left foot. No ankle effusion. No radiopaque foreign body. IMPRESSION: 1. No acute findings. XR Ankle Andrei min 3V 03/12/25 CLINICAL HISTORY: pain, unable to bear wt Three views of the right ankle and three views of the left ankle. Comparison: None provided Findings: Right ankle: No acute fractures. Ankle mortise intact. Mild degenerative changes of the ankle. Large ossicle at the inferior aspect of the medial malleolus. Possible small ankle effusion. No radiopaque foreign body. Bimalleolar soft tissue swelling. Left ankle: No acute fracture deformity. Ankle mortise intact. No significant degenerative change of the left ankle. Possible small effusion. Bone spur at the insertion of the plantar fascia on the inferior calcaneus Bimalleolar soft tissue swelling. IMPRESSION: 1. No acute fracture deformity of either ankle. Bimalleolar soft tissue swelling present. Possible small bilateral ankle fusions. CT CERVICAL SPINE WITHOUT CONTRAST 03/09/25 CLINICAL INFORMATION: Neck pain COMPARISON: None available. FINDINGS: Bilateral external auditory canals are impacted with cerumen, left greater than right. There is mild reversal cervical lordosis. There is no prevertebral soft tissue edema There is sclerosis and osteophytes involving the atlantodental articulation. C2-C3: Minimal uncovertebral facet osteophytes. C3-C4: Mild disc space narrowing with uncovertebral and facet osteophytes, greater on the. C4-C5: Mild to moderate disc space narrowing with subtle anterolisthesis. There is uncovertebral and facet osteophytes. C5-C6: Moderate disc space narrowing with degenerative endplate changes and mild grade 1 retrolisthesis. Uncovertebral facet osteophytes result in moderate to severe foraminal narrowing. C6-7: Subtle anterolisthesis with mild disc space narrowing and small uncovertebral osteophytes. C7-T1: Unremarkable IMPRESSION: Degenerative changes are most advanced at C5-6 where there is moderate to severe right greater than left foraminal narrowing. Cerumen impacted bilateral external auditory canals. There is mild reversal of cervical lordosis. This can be related to degenerative changes, positioning, muscle spasm, or posterior soft tissue injury. Assessment & Plan Assessment & Plan (1) Gout: Code(s): M10.9 - Gout, unspecified Category: Medical (2) Bunion of great toe of right foot: Code(s): M21.611 - Bunion of right foot Category: Medical (3) Bilateral foot pain: Code(s): M79.671 - Pain in right foot; M79.672 - Pain in left foot Category: Medical (4) Neck pain: Code(s): M54.2 - Cervicalgia Category: Medical Plan The patient will be referred to podiatry for further evaluation and management of foot-related issues, including degenerative changes and bone spurs. The patient is advised to continue physical therapy to improve foot function and reduce pain. He is also instructed to manage pain with Tylenol and avoid ibuprofen due to kidney concerns. Patient is encouraged to maintain lifestyle modifications and monitor blood sugar levels and BP monitoring. Follow-up with his primary care physician is recommended to reassess his medication regimen. Patient presented with elevated BP, asymptomatic. Reports stopping all his BP medications until he sees PCP. 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 The patient is advised to return to the clinic if neck pain recurs, as interventional pain management options, including injections, neuromodulation and RFA procedures are available for long-term relief. Patient was informed and verbally consented to the use of an ambient scribe for clinic note documentation during this visit. Orders: Referrals Podiatry Referral M10.9 - Gout, unspecified, M21.611 - Bunion of right foot, M79.671 - Pain in right foot, M79.672 - Pain in left foot Coding Level of Care Code New Pt Level 4 (07229) Diagnoses Gout M10.9 Bunion of great toe of right foot M21.611 Bilateral foot pain M79.671; M79.672 Neck pain M54.2
[2025-04-11 14:52] VITALS: BP 186/84; PULSE 68; O2SAT 96; BMI 24.3
--- OUTSIDE RECORDS SUMMARY | 2025-04-11 15:20 | XMS_ITS | Encounter Summary ---
Author Organization [facility] Address [address] [place] [address] Care Team Providers Care Car Body Mechanic Name Role Phone Nico Contreras MD Primary Care Provider [phone] Encounter Details Date Type Department Care Team (Late st Contact Info) Description 03/22/2025 Lab Requisition [facility] - Main Lab [address] [facility] [place] [address] Nico Contreras MD [address] [place] [address] Essential (primary) hypertension Social History Tobacco Use Types Packs/Day Years Used Date Smoking Tobacco: Never Assessed Sex and Gender Information Value Date Recorded Sex Assigned at Not on file Legal Sex Male 12:28 PM EDT Gender Identity Not on file Sexual Orientation Not on file documented as of this encounter Plan of Treatment Not on file documented as of this encounter Procedures Procedure Name Priority Date/Time Associated Diagnosis Comments COMPLETE BLOOD COUNT Routine 03/22/2025 10:29 AM EDT Essential (primary) hypertension documented in this encounter Results * (ABNORMAL) Complete blood count (03/22/2025 10:29 AM EDT) WBC 17.0(H) 4.8 - 10.8 K/mcL LAB HEMETOLOGY METHOD 03/22/2025 1:42 PM EDT [facility] RBC 4.30(L) 4.50 - 5.50 M/mcL LAB HEMETOLOGY METHOD 03/22/2025 1:42 PM EDT [facility] Hemoglobin 11.5(L) 13.5 - 17.5 g/dL LAB HEMETOLOGY METHOD 03/22/2025 1:42 PM EDT [facility] Hematocrit 37.7(L) 42.0 - 54.0 % LAB HEMETOLOGY METHOD 03/22/2025 1:42 PM EDT [facility] MCV 87.1 79.0 - 98.0 FL LAB HEMETOLOGY METHOD 03/22/2025 1:42 PM EDT [facility] MCH 26.6(L) 27.0 - 32.0 pcg LAB HEMETOLOGY METHOD 03/22/2025 1:42 PM EDT [facility] MCHC 30.5(L) 32.0 - 37.0 g/dL LAB HEMETOLOGY METHOD 03/22/2025 1:42 PM EDT [facility] RDW 14.4 11.0 - 15.0 % LAB HEMETOLOGY METHOD 03/22/2025 1:42 PM EDT [facility] Platelets 564(H) 130 - 400 K/mcL LAB HEMETOLOGY METHOD 03/22/2025 1:42 PM EDT [facility] MPV 11.1(H) 7.0 - 11.0 FL LAB HEMETOLOGY METHOD 03/22/2025 1:42 PM EDT [facility] NRBC 0.0 <1.0 % LAB HEMETOLOGY METHOD 03/22/2025 1:42 PM EDT [facility] NRBC Absolute 0.00 <0.10 K/mcL LAB HEMETOLOGY METHOD 03/22/2025 1:42 PM EDT [facility] Blood Venous blood specimen / Unknown Venipuncture / Unknown 03/22/2025 10:29 AM EDT 03/22/2025 11:07 AM EDT us Nico Contreras MD LAB BLOOD ORDERABLES Final Resul t [facility] [address] [place] [address], documented in this encounter Visit Diagnoses Diagnosis Essential (primary) hypertension Unspecified essential hypertension documented in this encounter Care Teams Car Body Mechanic Relationship Specialty Start Date End Date Nico Contreras MD [address] [place] [address] [address] [place] [address] PCP - General Geriatric Medicine 03/20/25 documented as of this encounter
== END 2025-04-11 15:35 | disposition home or self-care (01) ==
LOC: HO.PMC 14:47
PROVIDERS: PCP Internal Medicine; Visit Provider Nurse Practitioner Family
DX: M10.9 Gout, unspecified (principal); M21.611 Bunion of right foot; M79.671 Pain in right foot; M79.672 Pain in left foot; M54.2 Cervicalgia
CPT/HCPCS: 99204

== ENCOUNTER → 2025-04-11 14:46 | Outpatient (BNVA) | payer MEDICARE, MEDICAID, SELFPAY | PROVIDERS: PCP Internal Medicine; Visit Provider Nurse Practitioner Family | DX: M21.611 Bunion of right foot (principal); M10.9 Gout, unspecified; M79.671 Pain in right foot; M79.672 Pain in left foot; M54.2 Cervicalgia | CPT/HCPCS: 99202 ==

== ENCOUNTER 2025-04-21 11:18 | Outpatient (AMB) | payer MEDICARE, MEDICAID, SELFPAY ==
[2025-04-21 11:22] VITALS: BP 146/70; PULSE 65; RESP 18; TEMP 36.3; O2SAT 98; BMI 25.2
--- NOTE | 2025-04-21 11:22 | A.OFFPC_ITS ---
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 Pt was not happy that he had to see me and Not his PCP (Dr. Villela). Pt had concerns that he needed to addressed by His PCP. Pt not happy that PCP prescribed HTN medications that interacted with Meloxicam, hence causing Kidney Failure. Pt was taking HCTZ, Amlodipine and Lisinopril which were discontinued in the Hospital due to interaction with Meloxicam. [place] [facility] [place] for an evaluation and treatment of Gout Flare and HTN. Pt wondering how he developed Kidney Failure and Gout, because he never had any of the diseases. States that the ED providers informed him is because of medications he has been taking. Per Hospital Notes available for review today; Pt was started on Metoprolol 25 Daily. His Gout was treated with Prednisone and Allopurinol. He was admitted at [facility] for PT. Pt was advised to make an appointment to see his PCP to discuss his concerns. [facility] Medical History Vitamin D deficiency Allergic rhinitis Chronic kidney disease, stage III (moderate) Hyperuricemia GERD without esophagitis Pure hypercholesterolemia Diabetes mellitus Essential hypertension Surgical History History of drainage of abscess History of cataract surgery Family History Father Alzheimers disease Mother Diabetes Brother No problems noted. Sister No problems noted. Son No problems noted. Social History Household Members: Spouse and Children Housing: Apartment Do you presently have visiting nurse or other home services: No Unable to assess alcohol history related to: Unknown Alcohol intake: never Patient Tobacco Use Status: Former Tobacco user Tobacco use type: Cigarette e-Cigarette/Vaping Use: Never Used Second Hand Smoke Exposure: No service: No Current occupational status: retired Cognitive needs: No Hearing needs: No Vision needs: Yes Questionnaire PHQ-9 Over the last 2 weeks, how often have you been bothered by any of the following problems? 1. Little interest or pleasure in doing things: not at all 2. Feeling down, depressed, or hopeless: not at all 3. Trouble falling or staying asleep, or sleeping too much: not at all 4. Feeling tired or having little energy: not at all 5. Poor appetite or overeating: not at all 6. Feeling bad about yourself - or that you are a failure or have let yourself or your family down: not at all 7. Trouble concentrating on things, such as reading the newspaper or watching television: not at all 8. Moving or speaking so slowly that other people could have noticed. Or the opposite - being so fidgety or restless that you have been moving around a lot more than usual: not at all 9. Thoughts that you would be better off or of hurting yourself in some way: not at all Total score: 0 Source: Developed by Drs. Angel Witt, Jayla Brunson, Pranay Sewell and colleagues, with an educational roshan from [employer]. Thrive Questionnaire Date Thrive assessed: 04/21/25 I am a: Patient What is your living situation today?: I have a steady place to live Within the past 12 months, did the food you bought not last and you didn't have the money to get more?: Sometimes True Within the past 12 months, did you worry whether your food would run out before you got money to buy more?: Often true Do you have trouble paying for medicines?: No Do you have trouble getting transportation to medical appointments?: Yes Do you have trouble paying your heating and electricity bill?: No Do you have trouble taking care of your child, family member or friend?: No Do you have trouble with day-to-day activities such as bathing, preparing meals, shopping, managing finances, etc.?: No Are you currently unemployed and looking for a job?: No Are you interested in more education?: No Please select the resources that you would like help with: None Currently or been in a relationship where the following occur: I choose not to answer THRIVE Score: 3 AUDIT C Alcohol Use Questionnaire (AUDIT-C) 1. How often do you have a drink containing alcohol?: Never Total Score: 0 CHUCK-7 AMB Questionnaire CHUCK-7 Date CHUCK - 7 assessed: 04/21/25 Feeling nervous, anxious, or on edge: 0 = Not at all Not being able to stop or control worryin = Not at all Worrying too much about different things: 0 = Not at all Trouble relaxin = Not at all Being so restless that it is hard to sit still: 0 = Not at all Becoming easily annoyed or irritable: 0 = Not at all Feeling afraid as if something awful might happen: 0 = Not at all Total CHUCK-7 score (0-4 normal; 5-9 mild; 10-14 moderate; 15-21 severe): 0 Source: Developed by Drs. Angel Witt, Jayla Brunson, Pranay Sewell and colleagues, with an educational roshan from [employer]. Review of Systems Const All systems reviewed & are unremarkable except as noted in HPI and below Physical exam (Primary Care) Vital Signs: Last Vital Signs Temp 97.3 F 04/21/25 11:22 Pulse 65 04/21/25 11:22 Resp 18 04/21/25 11:22 BP 146/70 H 04/21/25 11:22 Pulse Ox 98 04/21/25 11:22 Oxygen Delivery Method Room Air 04/21/25 11:22 BMI result Body Mass Index 25.2 Tobacco/Smoking Status: Tobacco use Status Tobacco use date assessed 04/21/25 04/21/25 11:33 Patient Tobacco Use Status Former Tobacco user 04/21/25 11:33 Tobacco use type Cigarette 04/21/25 11:33 e-Cigarette/Vaping Use Never Used 04/21/25 11:33 PHQ-9: PHQ-9 Score PHQ-9: Total score 0 04/21/25 11:33 Thrive Assessment: Date of Thrive Assessment Date Thrive assessed 04/21/25 04/21/25 11:33 Currently or been in a relationship where the following occur: I choose not to answer Const General: no acute distress Resp Effort & Inspection: normal respiratory effort Auscultation: clear to auscultation bilaterally Cardio Heart sounds: S1 normal heart sound present and S2 normal heart sound present Coding Level of Care Code Est Pt Level 4 (76988) Diagnoses Hypertension I10 Gout M10.9 Time Spent (min) 20 Assessment & Plan Assessment & Plan (1) Hypertension: Code(s): I10 - Essential (primary) hypertension Category: Medical Plan: HCTZ, Amlodipine and Lisinopril were discontinued. Metoprolol was started. F/U with PCP for medication concerns. (2) Gout: Code(s): M10.9 - Gout, unspecified Category: Medical Plan: Stable He was treated
--- OUTSIDE RECORDS SUMMARY | 2025-04-21 11:23 | XMS_ITS | Encounter Summary ---
Author Organization [facility] Address [address] [place] [address] Care Team Providers Care Turn Down Worker Name Role Phone Nico Contreras MD Primary Care Provider [phone] Encounter Details Date Type Department Care Team (Late st Contact Info) Description 03/22/2025 Lab Requisition [facility] - Main Lab [address] [facility] [place] [address] Nico Contreras MD [address] [place] [address] Essential (primary) hypertension Social History Tobacco Use [...] LAB HEMETOLOGY METHOD 03/22/2025 1:42 PM EDT [facility] RBC 4.30(L) 4.50 - 5.50 M/mcL LAB HEMETOLOGY METHOD 03/22/2025 1:42 PM EDT [facility] Hemoglobin 11.5(L) 13.5 - 17.5 g/dL LAB HEMETOLOGY METHOD 03/22/2025 1:42 PM EDT [facility] Hematocrit 37.7(L) 42.0 - 54.0 % LAB HEMETOLOGY METHOD 03/22/2025 1:42 PM EDT [facility] MCV 87.1 79.0 - 98.0 FL LAB HEMETOLOGY METHOD 03/22/2025 1:42 PM EDT [facility] MCH 26.6(L) 27.0 - 32.0 pcg LAB HEMETOLOGY METHOD 03/22/2025 1:42 PM EDT [facility] MCHC 30.5(L) 32.0 - 37.0 g/dL LAB HEMETOLOGY METHOD 03/22/2025 1:42 PM EDT [facility] RDW 14.4 11.0 - 15.0 % LAB HEMETOLOGY METHOD 03/22/2025 1:42 PM EDT [facility] Platelets 564(H) 130 - 400 K/mcL LAB HEMETOLOGY METHOD 03/22/2025 1:42 PM EDT [facility] MPV 11.1(H) 7.0 - 11.0 FL LAB HEMETOLOGY METHOD 03/22/2025 1:42 PM EDT [facility] NRBC 0.0 <1.0 % LAB HEMETOLOGY METHOD 03/22/2025 1:42 PM EDT [facility] NRBC Absolute 0.00 <0.10 K/mcL LAB HEMETOLOGY METHOD 03/22/2025 1:42 PM EDT [facility] Blood Venous blood specimen / Unknown Venipuncture / Unknown 03/22/2025 10:29 AM EDT 03/22/2025 11:07 AM EDT us Nico Contreras MD LAB BLOOD ORDERABLES Final Resul t [facility] [address] [place] [address], documented in this encounter Visit Diagnoses Diagnosis Essential (primary) hypertension Unspecified essential hypertension documented in this encounter Care Teams Turn Down Worker Relationship Specialty Start Date End Date Nico Contreras MD [address] [place] [address] [address] [place] [address] PCP - General Geriatric Medicine 03/20/25 documented as of this encounter
== END 2025-04-21 12:07 | disposition home or self-care (01) ==
LOC: HO.HMCH 11:18
PROVIDERS: PCP Internal Medicine; Visit Provider Nurse Practitioner Family
DX: I10 Essential (primary) hypertension (principal); M10.9 Gout, unspecified

== ENCOUNTER → 2025-04-21 11:18 | Outpatient (BNVA) | payer MEDICARE, MEDICAID, SELFPAY | PROVIDERS: PCP Internal Medicine; Visit Provider Nurse Practitioner Family | DX: I10 Essential (primary) hypertension (principal); M10.9 Gout, unspecified | CPT/HCPCS: 99212 ==

== ENCOUNTER 2025-05-15 13:05 | Outpatient (REF) | payer MEDICARE, MEDICAID, SELFPAY ==
[2025-05-15 14:43] LABS: MANUAL DIFF FLAG NO
[2025-05-15 15:27] LABS: Hematocrit 43.1 % (42.0-52.0); Hemoglobin 13.6 g/dl (14.0-18.0); Imm Gran Abs Auto 0.16 X10*3/uL (0.00-0.03); Imm Gran Pct Auto 1.8 % (0.0-0.4); Lymphocytes Absolute Auto 2.2 X10*3/uL (1.2-4.9); Mean Corpuscular HGB Conc 31.6 g/dl (31.0-36.0); Mean Corpuscular Hemoglobin 27.5 pg (27.0-33.0); Mean Corpuscular Volume 87.1 fL (80.0-98.0); NRBC Abs Auto 0.000 X10*3/uL (0.0-0.012); NRBC Pct Auto 0.0 /100WBC (0.0-0.2); Platelet Count 391 X10*3/uL (160-400); Red Blood Count 4.95 X10*6/uL (4.60-5.80); White Blood Count 8.7 X10*3/uL (4.8-10.8)
[2025-05-15 15:55] LABS: Appearance Urine Clear; Glucose Urine UA Negative (Negative); PH 5.0 (5.0-9.0); Specific Gravity - Urine 1.020 (1.005-1.025)
[2025-05-15 16:01] LABS: Erythrocyte Sedimentation Rate 38 MM/HR (0-15)
[2025-05-15 16:08] LABS: Alanine Aminotransferase 14 U/L (0-40); Albumin Level 4.2 g/dL (3.5-5.0); Alkaline Phosphatase 86 U/L (39-117); Anion Gap 14 (12-20); Aspartate Amino Transferase 23 U/L (5-37); Blood Urea Nitrogen 21 mg/dL (9-16); Calcium 9.8 mg/dL (8.4-10.2); Carbon Dioxide 26 mmol/L (22-29); Chloride 105 mmol/L (96-108); Estimated Glomerular Filt Rate 58; Potassium 4.2 mmol/L (3.3-5.1); Sodium 141 mmol/L (135-145); Total Protein 7.5 g/dL (6.5-8.0); Uric Acid 5.7 mg/dL (3.4-7.0)
[2025-05-15 16:42] LABS: Microalbum/Creatinine Ratio Ur 32.8 ug/mg cr (<30)
== END 2025-05-15 13:06 | disposition home or self-care (01) ==
LOC: HO.LAB 13:05
PROVIDERS: PCP Internal Medicine; Visit Provider Internal Medicine
DX: R30.0 Dysuria (principal); E11.9 Type 2 diabetes mellitus without complications; M79.7 Fibromyalgia; N17.9 Acute kidney failure, unspecified; M10.9 Gout, unspecified; D64.9 Anemia, unspecified; E78.00 Pure hypercholesterolemia, unspecified; E55.9 Vitamin D deficiency, unspecified; K21.9 Gastro-esophageal reflux disease without esophagitis; L28.2 Other prurigo; M19.011 Primary osteoarthritis, right shoulder; M54.2 Cervicalgia; J30.9 Allergic rhinitis, unspecified; Z79.84 Long term (current) use of oral hypoglycemic drugs; Z79.899 Other long term (current) drug therapy
CPT/HCPCS: 36415; 80053; 81003; 82043; 82570; 84550; 85025; 85652; 86140; 96127; 99212

== ENCOUNTER 2025-05-15 13:05 | Outpatient (AMB) | payer MEDICARE, MEDICAID, SELFPAY ==
[2025-05-15 13:16] VITALS: BP 130/78; PULSE 107; O2SAT 97; BMI 25.1
--- NOTE | 2025-05-15 13:16 | A.OFFPC_ITS ---
Vital Signs 05/15/25 13:16 Height 5 ft 7 in Weight 160 lb BMI 25.1 BP 130/78 Blood Pressure Location Lt brachial Position Sitting Pulse 107 H Pulse Source Pulse Oximeter Pulse Oximetry (%) 97 Oxygen Delivery Method Room Air Intake Visit Reasons: follow up/med concerns Nurse Practitioner Required: No Accompanied by: Self / Same As Patient Allergies No Known Allergies Allergy (Verified 06/28/25 15:01) Medication List - Last Reconciled 05/15/25 by Abdullahi Villela MD acetaminophen ER 1,300 mg PO Q8H PRN allopurinol 100 mg PO DAILY 30 days cetirizine 10 mg PO DAILY PRN cholecalciferol (vitamin D3) 50 mcg PO DAILY 90 days clotrimazole-betamethasone 1-0.05 % 1 appl topical BID PRN cyclobenzaprine 5 mg PO BEDTIME PRN glipizide ER 2.5 mg PO .Every other day lovastatin 20 mg PO DAILY magnesium oxide (MagOx) 400 mg PO DAILY metoprolol tartrate 25 mg PO DAILY mometasone 0.1% 1 appl topical DAILY PRN omeprazole 20 mg PO DAILY@0630 Tobacco use date assessed: 05/15/25 Fall risk assessment: No Falls in past year Last assessed Fall Risk: 05/15/25 Dental Screening Dental Screen Date: 05/15/25 Did you have a dental visit in the last 12 months?: No Did you have a dental problem in the last 6 months where you did not have access to dental care?: No Was dental information given to patient?: Patient has dentist HPI follow up/med concerns HPI Details Patient comes in today for his follow-up visit States that he feels okay but has concerns about his previous blood pressure medications and how he ended up with gout and LEXX a couple of months ago He as reportedly admitted at [facility] a couple of months ago from 03/13/25 to 03/16/25 for what appears to be a flare up of his gout as well as LEXX and he was reportedly advised at the time that his kidney issues are due to drug interactions from the medications that he was on at the time, primarily his blood pressure medications His amlodipine, hydrochlorothiazide and lisinopril were all discontinued and he is currently only on metoprolol 25 mg once a day blood pressure His renal function appears to have improved significantly at the time of his discharge from the hospital back in March 2025 He denies any headaches or dizziness Denies any chest pains, no increased SOB No nausea/vomiting, no abdominal pain No change in bowel habits noted He has no follow-up labs done recently and his previous lab orders have reportedly last month [facility] Medical History Vitamin D deficiency Allergic rhinitis Chronic kidney disease, stage III (moderate) Hyperuricemia GERD without esophagitis Pure hypercholesterolemia Diabetes mellitus Essential hypertension Surgical History History of drainage of abscess History of cataract surgery Family History Father Alzheimers disease Mother Diabetes Brother No problems noted. Sister No problems noted. Son No problems noted. Social History Household Members: Spouse and Children Housing: Apartment Do you presently have visiting nurse or other home services: No Alcohol intake: never Patient Tobacco Use Status: Former Tobacco user Tobacco use type: Cigarette e-Cigarette/Vaping Use: Never Used Second Hand Smoke Exposure: No service: No Current occupational status: retired Cognitive needs: No Hearing needs: No Vision needs: Yes Questionnaire PHQ-9 Over the last 2 weeks, how often have you been bothered by any of the following problems? 1. Little interest or pleasure in doing things: not at all 2. Feeling down, depressed, or hopeless: not at all 3. Trouble falling or staying asleep, or sleeping too much: not at all 4. Feeling tired or having little energy: not at all 5. Poor appetite or overeating: not at all 6. Feeling bad about yourself - or that you are a failure or have let yourself or your family down: not at all 7. Trouble concentrating on things, such as reading the newspaper or watching television: not at all 8. Moving or speaking so slowly that other people could have noticed. Or the opposite - being so fidgety or restless that you have been moving around a lot more than usual: not at all 9. Thoughts that you would be better off or of hurting yourself in some way: not at all Total score: 0 Depression Screening Interpretation: Negative Depression Screening Done: Yes 85391 - PHQ-9 Billing: Yes Source: Developed by Drs. Angel Witt, Jayla Brunson, Pranay Sewell and colleagues, with an educational roshan from [employer]. Thrive Questionnaire Date Thrive assessed: 05/15/25 I am a: Patient What is your living situation today?: I have a steady place to live Within the past 12 months, did the food you bought not last and you didn't have the money to get more?: Often true Within the past 12 months, did you worry whether your food would run out before you got money to buy more?: Often true Do you have trouble paying for medicines?: No Do you have trouble getting transportation to medical appointments?: Yes Do you have trouble paying your heating and electricity bill?: No Do you have trouble taking care of your child, family member or friend?: No Do you have trouble with day-to-day activities such as bathing, preparing meals, shopping, managing finances, etc.?: No Are you currently unemployed and looking for a job?: No Are you interested in more education?: No Please select the resources that you would like help with: None Currently or been in a relationship where the following occur: I choose not to answer THRIVE Score: 3 AUDIT C Alcohol Use Questionnaire (AUDIT-C) 1. How often do you have a drink containing alcohol?: Never 3. How often do you have six or more drinks on one occasion?: Never Total Score: 0 Score Reviewed/Action Taken: Yes CHUCK-7 AMB Questionnaire CHUCK-7 Date CHUCK - 7 assessed: 05/15/25 Feeling nervous, anxious, or on edge: 0 = Not at all Not being able to stop or control worryin = Not at all Worrying too much about different things: 0 = Not at all Trouble relaxin = Not at all Being so restless that it is hard to sit still: 0 = Not at all Becoming easily annoyed or irritable: 0 = Not at all Feeling afraid as if something awful might happen: 0 = Not at all Total CHUCK-7 score (0-4 normal; 5-9 mild; 10-14 moderate; 15-21 severe): 0 Source: Developed by Drs. Angel Witt, Jayla Brunson, Pranay Sewell and colleagues, with an educational roshan from [employer]. Review of Systems Const Denies chills, Denies fatigue, Denies fever(s) and Denies headache(s) ENT Denies dysphagia, Denies dizziness, Denies otalgia, Denies headache(s), Reports neck pain (especially on the right side - chronic), Denies odynophagia and Denies sore throat Card Denies chest pain, Denies palpitations and Denies dyspnea Resp Denies chest congestion, Denies cough and Denies dyspnea GI Denies abdominal pain, Denies constipation, Denies dysphagia, Denies heartburn, Denies diarrhea, Denies nausea, Denies odynophagia and Denies vomiting Denies difficulty urinating, Denies dysuria, Denies nocturia and Denies urinary frequency Musc Denies back pain, Reports arthralgias (over the right shoulder) and Reports neck pain (especially on the right side - chronic) Skin/Breast Reports rash (over the forehead and the back of his neck) Neuro Denies dizziness and Denies headache(s) Endo Denies fatigue and Denies palpitations Physical exam (Primary Care) Vital Signs: Last Vital Signs Pulse 107 H 05/15/25 13:16 BP 130/78 05/15/25 13:16 Pulse Ox 97 05/15/25 13:16 Oxygen Delivery Method Room Air 05/15/25 13:16 BMI result Body Mass Index 25.1 Tobacco/Smoking Status: Tobacco use Status Tobacco use date assessed 05/15/25 05/15/25 13:22 Patient Tobacco Use Status Former Tobacco user 05/15/25 13:22 Tobacco use type Cigarette 05/15/25 13:22 e-Cigarette/Vaping Use Never Used 05/15/25 13:22 PHQ-9: PHQ-9 Score PHQ-9: Total score 0 05/15/25 14:05 Depression Screening Interpretation: Negative Thrive Assessment: Date of Thrive Assessment Date Thrive assessed 05/15/25 05/15/25 13:22 Currently or been in a relationship where the following occur: I choose not to answer Const General: no acute distress and alert HENMT Ears: TM's normal bilaterally and EAC's normal Throat: Yes posterior oropharynx normal and Yes tonsils normal (no TP congestion) Neck Neck: No lymphadenopathy and Yes tender Thyroid: Thyroid normal Resp Auscultation: clear to auscultation bilaterally, no rales and no wheezes Cardio Rate: regular rate Rhythm: regular rhythm Heart sounds: no murmurs GI Palpation (GI): Soft to palpation and nontender Auscultation: normal bowel sounds General: Yes no CVA tenderness Back/Spine/Pelvis Back: no CVA tenderness Cervical Spine: cervical muscular tenderness (on the right side) and Cervical spine tenderness Thoracic/Lumbar Spine: lumbar spinal tenderness (mild) Skin Rashes: rashes noted ((+) scattered erythematous rash over forehead and on the back of the neck) Extrem General: Yes no clubbing, cyanosis or edema Coding Level of Care Code Est Pt Level 4 (60947) Diagnoses Essential hypertension I10 Type 2 diabetes mellitus with stage 3a chronic kidney disease, without long-term current use of insulin E11.22; N18.31 Diabetes mellitus type: type 2 Diabetes mellitus retirement insulin use: without middle or intermediate school principal use Diabetes mellitus complication status: with kidney complications Diabetes mellitus complication detail: with chronic kidney disease Chronic kidney disease stage: stage 3 (moderate) Chronic kidney disease stage 3 subtype: stage 3a (GFR 45-59) Stage 3a chronic kidney disease N18.31 Chronic kidney disease stage 3 subtype: stage 3a (GFR 45-59) Pure hypercholesterolemia E78.00 Vitamin D deficiency E55.9 GERD without esophagitis K21.9 Gout, unspecified cause, unspecified chronicity, unspecified site M10.9 Gout site: unspecified site Gout etiology: unspecified cause Chronicity: unspecified Pruritic rash L28.2 Primary osteoarthritis, right shoulder M19.011 Neck pain M54.2 Allergic rhinitis, unspecified seasonality, unspecified trigger J30.9 Allergic rhinitis trigger: unspecified Allergic rhinitis seasonality: unspecified Additional Codes PHQ-9 - 93448 - PHQ-9 Billing: Yes ([id number]) Assessment & Plan Assessment & Plan (1) Essential hypertension: Code(s): I10 - Essential (primary) hypertension Category: Medical Plan: Reinforced low sodium diet - goal is systolic BP of at least 130 to 140 mm or less Continue Metoprolol 25 mg QD His previous medications, which included Amlodipine, HCTZ and Lisinopril were all discontinued a couple of months ago when he was admitted to the hospital with LEXX Patient is advised to monitor his blood pressure regularly (2) Diabetes mellitus: Code(s): E11.9 - Type 2 diabetes mellitus without complications Category: Medical Qualifiers: Diabetes mellitus type: type 2 Diabetes mellitus retirement insulin use: without middle or intermediate school principal use Diabetes mellitus complication status: with kidney complications Diabetes mellitus complication detail: with chronic kidney disease Chronic kidney disease stage: stage 3 (moderate) Chronic kidney disease stage 3 subtype: stage 3a (GFR 45-59) Qualified Code(s): E11.22 - Type 2 diabetes mellitus with diabetic chronic kidney disease; N18.31 - Chronic kidney disease, stage 3a Plan: His HgbA1c was at 5.7% when last checked in January 2025 - goal is at least <7.0% Reinforced diabetic diet Continue Glipizide ER 2.5 mg every other day (3) Chronic kidney disease, stage III (moderate): Comment: had LEXX in March 2025, with GFR dropping to as low as 14 but renal function has since recovered Code(s): N18.30 - Chronic kidney disease, stage 3 unspecified Category: Medical Qualifiers: Chronic kidney disease stage 3 subtype: stage 3a (GFR 45-59) Qualified Code(s): N18.31 - Chronic kidney disease, stage 3a Plan: Patient is reminded that the best way to help keep his renal function stable is with control of his diabetes and high blood pressure He developed LEXX back in early March 2025, with his GFR dropping to as low as 14 but it has rebounded back up to 53 and >60 at the time of his discharge from the hospital a couple of months ago Will continue to monitor his renal function regularly and will send him to the lab to recheck his renal function today (4) Pure hypercholesterolemia: Code(s): E78.00 - Pure hypercholesterolemia, unspecified Category: Medical Plan: He has no follow up labs done recently so will send him to the lab to get this rechecked OMAR Reinforced low cholesterol diet Continue Lovastatin 20 mg QD (5) Vitamin D deficiency: Code(s): E55.9 - Vitamin D deficiency, unspecified Category: Medical Plan: Continue Vitamin D3 2000 units QD (6) GERD without esophagitis: Code(s): K21.9 - Gastro-esophageal reflux disease without esophagitis Category: Medical Plan: Dietary restrictions reinforced Continue Omeprazole 20 mg QD (7) Gout: Code(s): M10.9 - Gout, unspecified Category: Medical Qualifiers: Gout site: unspecified site Gout etiology: unspecified cause Chronicity: unspecified Qualified Code(s): M10.9 - Gout, unspecified Plan: Patient's serum uric acid was elevated at 10.3 mg/dl back in January 2025 but dropped down to 6.2 in March 2025 at the time of his discharge from [facility] He was admitted to [facility] for a few days in early March 2025 for a gout flare up and was also noted at the time to be in LEXX Reinforced low purine diet Continue Allopurinol 100 mg QD Will recheck his serum uric acid level OMAR for follow up (8) Pruritic rash: Code(s): L28.2 - Other prurigo Category: Medical Plan: Continue Mometasone 0.1% cream to apply to the rash on his forehead and over the back of his neck QD PRN He apparently has been tried on Triamcinolone acetonide 0.5% cream and Lotrisone cream in the past without any relief or improvement Have advised that if his rash still does not respond to his current Rx, will need to consider referring him to dermatology for further evaluation and management (9) Primary osteoarthritis, right shoulder: Code(s): M19.011 - Primary osteoarthritis, right shoulder Category: Medical Plan: X-rays of the right shoulder done back in April 2024 revealed (+) moderate osteoarthritis in the right acromioclavicular joint Continue Meloxicam 15 mg QD with food PRN for now but have cautioned patient to take this only as needed due to his CKD Have advised him that if his shoulder pain gets worse, we can consider referring him to orthopedics for further evaluation and management and for consideration of cortisone injections, which patient states that he's had in the past (10) Neck pain: Code(s): M54.2 - Cervicalgia Category: Medical Plan: Continue Cyclobenzaprine 5 mg Q HS PRN (11) Allergic rhinitis: Code(s): J30.9 - Allergic rhinitis, unspecified Category: Medical Qualifiers: Allergic rhinitis trigger: unspecified Allergic rhinitis seasonality: unspecified Qualified Code(s): J30.9 - Allergic rhinitis, unspecified Plan: Continue Cetirizine 10 mg QD PRN Plan Follow up in June 2025 Orders: Orders Comprehensive Met. Panel 09/08/25 N17.9 - Acute kidney failure, unspecified Complete Blood Count Auto Diff 05/15/25 D64.9 - Anemia, unspecified, N17.9 - Acute kidney failure, unspecified Uric Acid 05/15/25 M10.9 - Gout, unspecified, N17.9 - Acute kidney failure, unspecified C Reactive Protein 05/15/25 N17.9 - Acute kidney failure, unspecified Erythrocyte Sedimentation Rate 05/15/25 M79.7 - Fibromyalgia, N17.9 - Acute kidney failure, unspecified
--- OUTSIDE RECORDS SUMMARY | 2025-05-15 15:17 | XMS_ITS | Encounter Summary ---
Author Organization [facility] Address [address] [place] [address] Care Team Providers Care Construction Services Technician Name Role Phone Nico Contreras MD Primary Care Provider [phone] Encounter Details Date Type Department Care Team (Late st Contact Info) Description 03/22/2025 Lab Requisition [facility] - Main Lab [address] [facility] [place] [address] Nico Contreras MD [address] [place] [address] Essential (primary) hypertension Social History Tobacco Use [...] LAB HEMETOLOGY METHOD 03/22/2025 1:42 PM EDT [facility] RBC 4.30(L) 4.50 - 5.50 M/mcL LAB HEMETOLOGY METHOD 03/22/2025 1:42 PM EDT [facility] Hemoglobin 11.5(L) 13.5 - 17.5 g/dL LAB HEMETOLOGY METHOD 03/22/2025 1:42 PM EDT [facility] Hematocrit 37.7(L) 42.0 - 54.0 % LAB HEMETOLOGY METHOD 03/22/2025 1:42 PM EDT [facility] MCV 87.1 79.0 - 98.0 FL LAB HEMETOLOGY METHOD 03/22/2025 1:42 PM EDT [facility] MCH 26.6(L) 27.0 - 32.0 pcg LAB HEMETOLOGY METHOD 03/22/2025 1:42 PM EDT [facility] MCHC 30.5(L) 32.0 - 37.0 g/dL LAB HEMETOLOGY METHOD 03/22/2025 1:42 PM EDT [facility] RDW 14.4 11.0 - 15.0 % LAB HEMETOLOGY METHOD 03/22/2025 1:42 PM EDT [facility] Platelets 564(H) 130 - 400 K/mcL LAB HEMETOLOGY METHOD 03/22/2025 1:42 PM EDT [facility] MPV 11.1(H) 7.0 - 11.0 FL LAB HEMETOLOGY METHOD 03/22/2025 1:42 PM EDT [facility] NRBC 0.0 <1.0 % LAB HEMETOLOGY METHOD 03/22/2025 1:42 PM EDT [facility] NRBC Absolute 0.00 <0.10 K/mcL LAB HEMETOLOGY METHOD 03/22/2025 1:42 PM EDT [facility] Blood Venous blood specimen / Unknown Venipuncture / Unknown 03/22/2025 10:29 AM EDT 03/22/2025 11:07 AM EDT us Nico Contreras MD LAB BLOOD ORDERABLES Final Resul t [facility] [address] [place] [address], documented in this encounter Visit Diagnoses Diagnosis Essential (primary) hypertension Unspecified essential hypertension documented in this encounter Care Teams Construction Services Technician Relationship Specialty Start Date End Date Nico Contreras MD [address] [place] [address] [address] [place] [address] PCP - General Geriatric Medicine 03/20/25 documented as of this encounter
--- OUTSIDE RECORDS SUMMARY | 2025-05-15 15:17 | XMS_ITS | Encounter Summary ---
Author Organization [facility] Address [address] [place] [address] Care Team Providers Care Automobile Damage Field Appraiser Name Role Phone Nico Contreras MD Primary Care Provider [phone] Encounter Details Date Type Department Care Team (Late st Contact Info) Description 03/20/2025 Lab Requisition [facility] - Main Lab [address] [place] [address] Nico Contreras MD [address] [place] [address] Vitamin D deficiency, unspecified; Vitamin B12 deficiency anemia, unspecified; Essential (primary) hypertension; Type 2 diabetes mellitus without complications (CMS/HCC V24, CMS/HCC V28) Social History Tobacco Use Types Packs/Day Years [...] Procedure Name Priority Date/Time Associated Diagnosis Comments VITAMIN B12 AND FOLATE Routine 03/17/2025 7:58 AM EDT Vitamin D deficiency, unspecified Vitamin B12 deficiency anemia, unspecified Essential (primary) hypertension Type 2 diabetes mellitus without complications (CMS/HCC V24, CMS/HCC V28) LIPID PANEL WITH REFLEX TO DIRECT LDL Routine 03/17/2025 7:58 AM EDT Vitamin D deficiency, unspecified Vitamin B12 deficiency anemia, unspecified Essential (primary) hypertension Type 2 diabetes mellitus without complications (CMS/HCC V24, CMS/HCC V28) VITAMIN D 25 HYDROXY Routine 03/17/2025 7:58 AM EDT Vitamin D deficiency, unspecified Vitamin B12 deficiency anemia, unspecified Essential (primary) hypertension Type 2 diabetes mellitus without complications ([facility] V24, CMS/[facility] V28) COMPLETE BLOOD COUNT Routine 03/17/2025 7:58 AM EDT Vitamin D deficiency, unspecified Vitamin B12 deficiency anemia, unspecified Essential (primary) hypertension Type 2 diabetes mellitus without complications ([facility] V24, CMS/[facility] V28) THYROID STIMULATING HORMONE Routine 03/17/2025 7:58 AM EDT Vitamin D deficiency, unspecified Vitamin B12 deficiency anemia, unspecified Essential (primary) hypertension Type 2 diabetes mellitus without complications ([facility] V24, CMS/[facility] V28) HEMOGLOBIN A1C Routine 03/17/2025 7:58 AM EDT Vitamin D deficiency, unspecified Vitamin B12 deficiency anemia, unspecified Essential (primary) hypertension Type 2 diabetes mellitus without complications ([facility] V24, CMS/[facility] V28) COMPREHENSIVE METABOLIC PANEL Routine 03/17/2025 7:58 AM EDT Vitamin D deficiency, unspecified Vitamin B12 deficiency anemia, unspecified Essential (primary) hypertension Type 2 diabetes mellitus without complications ([facility] V24, CMS/[facility] V28) documented in this encounter Results * Vitamin D 25 hydroxy (03/17/2025 7:58 AM EDT) Vit D, 25-Hydroxy 32.6 ng/mL 03/20/2025 12:55 PM EDT [facility] Blood Venous blood specimen / Unknown 03/17/2025 7:58 AM EDT 03/20/2025 12:54 PM EDT us Nico Contreras MD LAB BLOOD ORDERABLES Final Resul t [facility] [address] [place] [address], * Vitamin B12 and folate (03/17/2025 7:58 AM EDT) Vitamin B-12 303 pcg/mL 03/20/2025 12:53 PM EDT [facility] Folate 6.1 ng/ml 03/20/2025 12:53 PM EDT [facility] Blood Venous blood specimen / Unknown Venipuncture / Unknown 03/17/2025 7:58 AM EDT 03/20/2025 12:33 PM EDT us Nico Contreras MD LAB BLOOD ORDERABLES Final Resul t [facility] [address] [place] [address], [place] [phone] * Thyroid stimulating hormone (03/17/2025 7:58 AM EDT) Pathologist [facility] [place] TSH 1.75 mcIU/mL 03/20/2025 12:52 PM EDT [facility] Blood Venous blood specimen / Unknown Venipuncture / Unknown 03/17/2025 7:58 AM EDT 03/20/2025 12:33 PM EDT us Nico Contreras MD LAB BLOOD ORDERABLES Final Resul t [facility] [address] [place] [address], [place] [phone] * Hemoglobin A1c (03/17/2025 7:58 AM EDT) Pathologist [facility] [place] Hemoglobin A1C 6.0 % 03/20/2025 12:45 PM EDT [facility] Mean Bld Glu Estim. 126 mg/dL 03/20/2025 12:45 PM EDT [facility] Blood Venous blood specimen / Unknown Venipuncture / Unknown 03/17/2025 7:58 AM EDT 03/20/2025 12:33 PM EDT us Nico Contreras MD LAB BLOOD ORDERABLES Final Resul t Performing Organization Address [facility] [address]/ZIP Co de Phone Number [facility] [address] [place] [address], [place] [phone] * Lipid panel with reflex to direct LDL (03/17/2025 7:58 AM EDT) Cholesterol 96 mg/dL 03/20/2025 12:51 PM EDT [facility] Triglycerides 79 mg/dL 03/20/2025 12:51 PM EDT [facility] HDL 26 mg/dL 03/20/2025 12:51 PM EDT [facility] LDL Calculated 54 mg/dL 03/20/2025 12:51 PM EDT [facility] VLDL Cholesterol Palomo 15.8 mg/dL 03/20/2025 12:51 PM EDT [facility] Non HDL Chol. (LDL+VLDL) 70 mg/dL 03/20/2025 12:51 PM EDT [facility] Chol/HDL Ratio 3.7 03/20/2025 12:51 PM EDT [facility] Blood Venous blood specimen / Unknown Venipuncture / Unknown 03/17/2025 7:58 AM EDT 03/20/2025 12:33 PM EDT us Nico Contreras MD LAB BLOOD ORDERABLES Final Resul t Performing Organization Address City/[facility] [address]/ZIP Co de Phone Number [facility] [address] [place] [address], [place] [phone] * (ABNORMAL) Comprehensive metabolic panel (03/17/2025 7:58 AM EDT) Sodium 137 mmol/L 03/20/2025 12:50 PM EDT [facility] Potassium 4.7 mmol/L 03/20/2025 12:50 PM [facility] Chloride 102 mmol/L 03/20/2025 12:50 PM [facility] CO2 27 mmol/L 03/20/2025 12:50 PM [facility] Anion Gap 8 03/20/2025 12:50 PM [facility] Glucose 113 mg/dL 03/20/2025 12:50 PM [facility] BUN 30 mg/dL 03/20/2025 12:50 PM [facility] Creatinine 1.11 mg/dL 03/20/2025 12:50 PM [facility] eGFR 68 >=60 mL/min/1. 73m2 03/20/2025 12:50 PM [facility] Comment:Calculation based on the Chronic Kidney Disease Epidemiology Collaboration (CKD-EPI) equation refit without adjustment for race. BUN/Creatinine Ratio 27.0(H) 12.0 - 20.0 03/20/2025 12:50 PM [facility] Calcium 8.5 mg/dL 03/20/2025 12:50 PM [facility] AST (SGOT) 19 unit/L 03/20/2025 12:50 PM [facility] ALT (SGPT) 15 unit/L 03/20/2025 12:50 PM [facility] Alkaline Phosphatase 69 unit/L 03/20/2025 12:50 PM [facility] Total Protein 6.0 g/dL 03/20/2025 12:50 PM [facility] Albumin 2.4 g/dL 03/20/2025 12:50 PM [facility] Total Bilirubin 0.6 mg/dL 12:50 PM EDT [facility] Blood Venous blood specimen / Unknown Venipuncture / Unknown 03/17/2025 7:58 AM EDT 03/20/2025 12:33 PM EDT us Nico Contreras MD LAB BLOOD ORDERABLES Final Resul t [facility] [address] [place] [address], * Complete blood count (03/17/2025 7:58 AM EDT) WBC 16.6 K/mcL 03/20/2025 12:44 PM EDT [facility] RBC 3.50 M/mcL 03/20/2025 12:44 PM EDT [facility] Hemoglobin 9.5 g/dL 03/20/2025 12:44 PM EDT [facility] Hematocrit 29.5 % 03/20/2025 12:44 PM EDT [facility] MCV 83.6 FL 03/20/2025 12:44 PM EDT [facility] MCH 26.9 pcg 03/20/2025 12:44 PM EDT [facility] MCHC 32.2 g/dL 03/20/2025 12:44 PM EDT [facility] RDW 14.0 % 03/20/2025 12:44 PM EDT [facility] Platelets 41 K/mcL 03/20/2025 12:44 PM EDT [facility] MPV 11.2 FL 03/20/2025 12:44 PM EDT [facility] NRBC 0.0 % 03/20/2025 12:44 PM EDT [facility] NRBC Absolute 0.00 K/mcL 03/20/2025 12:44 PM EDT [facility] ([facility] Blood Venous blood specimen / Unknown Venipuncture / Unknown 03/17/2025 7:58 AM EDT 03/20/2025 12:33 PM EDT us Nico Contreras MD LAB BLOOD ORDERABLES Final Resul t [facility] [address] [place] [address], documented in this encounter Visit Diagnoses Diagnosis Vitamin D deficiency, unspecified Vitamin B12 deficiency anemia, unspecified Essential (primary) hypertension Unspecified essential hypertension Type 2 diabetes mellitus without complications (CMS/HCC V24, CMS/HCC V28) documented in this encounter Care Teams Automobile Damage Field Appraiser Relationship Specialty Start Date End Date Nico Contreras MD [address] [place] [address] [address] [place] [address] PCP - General Geriatric Medicine 03/20/25 documented as of this encounter
--- OUTSIDE RECORDS SUMMARY | 2025-05-15 15:18 | XMS_ITS | Clinical Summary ---
Author Organization [address] Address [address] [place] [address] Phone Care Team Providers Care Insurance Coordinator Name Role Phone Nico Contreras MD Primary Care Provider Encounters Date Type Department Care Team Description 03/30/2025 Lab Requisition [facility] [address] [place] [phone] Nico Contreras MD Iron deficiency anemia, unspecified; Type 2 diabetes mellitus without complications (CMS/HCC V24, CMS/[facility] V28) 03/23/2025 Lab Requisition [facility] [address] [place] [phone] Nico Contreras MD Iron deficiency anemia, unspecified; Type 2 diabetes mellitus without complications (CMS/HCC V24, CMS/[facility] V28) 03/22/2025 Lab Requisition [facility] [address] [place] [phone] Nico Contreras MD Essential (primary) hypertension 03/20/2025 Lab Requisition [facility] [address] [place] [phone] Nico Contreras MD Vitamin D deficiency, unspecified; Vitamin B12 deficiency anemia, unspecified; Essential (primary) hypertension; Type 2 diabetes mellitus without complications (CMS/HCC V24, CMS/HCC V28) from Last 3 Months Social History Tobacco Use Types Packs/Day Years Used Date Smoking Tobacco: Never Assessed Sex and Gender Information Value Date Recorded Sex Assigned at Not on file Legal Sex Male 12:28 PM EDT Gender Identity Not on file Sexual Orientation Not on file Plan of Treatment Health Maintenance Due Date Last Done Comments Diabetes: Annual Foot Exam 01/24/1958 Diabetes: Annual Retina Eye Exam 01/24/1958 DTaP,Tdap,and Td Vaccines (1 - Tdap) 01/24/1967 Pneumococcal Vaccine: 50+ Years (1 of 2 - PCV) 01/24/1967 Zoster Vaccines (1 of 2) 01/24/1998 RSV Immunization Adult Patients (1 - 1-dose 75+ series) 01/24/2023 Depression Screening 09/07/2024 Diabetes: Annual Urine Albumin-Creatinine Ratio (uACR) 03/20/2025 Falls Risk Assessment 03/20/2025 Hepatitis C Screening 03/20/2025 Medicare Annual Wellness Visit 03/20/2025 Social Influencers of Health Screening 03/20/2025 COVID-19 Vaccine (2023-2 5 season) 2025 Influenza Vaccine (#1) 2025 Diabetes: Blood Sugar Contro l Test (HGBA1C) 09/17/2025 03/17/2025 Diabetes: Annual GFR (Glomerular Filtration Rate) 03/24/2026 03/24/2025, 03/17/2025 Hypertension/CHF/CAD Annual BMP Blood Test 03/24/2026 03/24/2025, 03/17/2025 Cholesterol Screening (Lipid Panel) 03/17/2030 03/17/2025 HIB Vaccines Aged Out No longer eligi ble based on patient's age to complete this topic HPV Vaccines Aged Out No longer eligi ble based on patient's age to complete this topic Hepatitis A Vaccines Aged Out No long er eligible based on patient's age to complete this topic Hepatitis B Vaccines Aged Out No long er eligible based on patient's age to complete this topic IPV Vaccines Aged Out No longer eligi ble based on patient's age to complete this topic MMR Vaccines Aged Out No longer eligi ble based on patient's age to complete this topic Meningococcal ACWY Vaccine Aged Out N o longer eligible based on patient's age to complete this topic Meningococcal B Vaccine Aged Out No l onger eligible based on patient's age to complete this topic RSV Immunization Patients Under 20 months Aged Out No longer eligible b ased on patient's age to complete this topic Varicella Vaccines Aged Out No longer eligible based on patient's age to complete this topic Procedures Procedure Name Priority Date/Time Associated Diagnosis Comments BASIC METABOLIC PANEL Routine 03/24/2025 5:23 AM EDT Iron deficiency anemia, unspecified Type 2 diabetes mellitus without complications (CMS/HCC V24, CMS/HCC V28) COMPLETE BLOOD COUNT Routine 03/24/2025 5:23 AM EDT Iron deficiency anemia, unspecified Type 2 diabetes mellitus without complications (CMS/HCC V24, CMS/HCC V28) COMPLETE BLOOD COUNT Routine 03/22/2025 10:29 AM EDT Essential (primary) hypertension VITAMIN D 25 HYDROXY Routine 03/17/2025 7:58 AM EDT Vitamin D deficiency, unspecified Vitamin B12 deficiency anemia, unspecified Essential (primary) hypertension Type 2 diabetes mellitus without complications (CMS/HCC V24, CMS/[facility] V28) VITAMIN B12 AND FOLATE Routine 03/17/2025 7:58 AM EDT Vitamin D deficiency, unspecified Vitamin B12 deficiency anemia, unspecified Essential (primary) hypertension Type 2 diabetes mellitus without complications (CMS/HCC V24, CMS/HCC V28) THYROID STIMULATING HORMONE Routine 03/17/2025 7:58 AM EDT Vitamin D deficiency, unspecified Vitamin B12 deficiency anemia, unspecified Essential (primary) hypertension Type 2 diabetes mellitus without complications (CMS/HCC V24, CMS/HCC V28) HEMOGLOBIN A1C Routine 03/17/2025 7:58 AM [...] mellitus without complications (CMS/HCC V24, CMS/HCC V28) COMPREHENSIVE METABOLIC PANEL Routine 03/17/2025 7:58 AM EDT Vitamin D deficiency, unspecified Vitamin B12 deficiency anemia, unspecified Essential (primary) hypertension Type 2 diabetes mellitus without complications ([facility] V24, [facility] V28) COMPLETE BLOOD COUNT Routine 03/17/2025 7:58 AM EDT Vitamin D deficiency, unspecified Vitamin B12 deficiency anemia, unspecified Essential (primary) hypertension Type 2 diabetes mellitus without complications ([facility] V24, [facility] V28) from Last 3 Months Results * (ABNORMAL) Complete blood count (03/24/2025 5:23 AM EDT) Only the most recent of3 resultswithin the time period is included. WBC 15.0(H) 4.8 - 10.8 K/mcL LAB HEMETOLOGY METHOD 03/24/2025 9:53 AM [facility] RBC 3.70(L) 4.50 - 5.50 M/mcL LAB HEMETOLOGY METHOD 03/24/2025 9:53 AM [facility] Hemoglobin 10.1(L) 13.5 - 17.5 g/dL LAB HEMETOLOGY METHOD 03/24/2025 9:53 AM [facility] Hematocrit 31.9(L) 42.0 - 54.0 % LAB HEMETOLOGY METHOD 03/24/2025 9:53 AM [facility] MCV 86.0 79.0 - 98.0 FL LAB HEMETOLOGY METHOD 03/24/2025 9:53 AM [facility] MCH 27.2 27.0 - 32.0 pcg LAB HEMETOLOGY METHOD 03/24/2025 9:53 AM [facility] MCHC 31.7(L) 32.0 - 37.0 g/dL LAB HEMETOLOGY METHOD 03/24/2025 9:53 AM [facility] RDW 14.5 11.0 - 15.0 % LAB HEMETOLOGY METHOD 03/24/2025 9:53 AM [facility] Platelets 362 130 - 400 K/mcL LAB HEMETOLOGY METHOD 03/24/2025 9:53 AM EDT [facility] MPV 11.2(H) 7.0 - 11.0 FL LAB HEMETOLOGY METHOD 03/24/2025 9:53 AM EDT [facility] NRBC 0.0 <1.0 % LAB HEMETOLOGY METHOD 03/24/2025 9:53 AM EDT [facility] NRBC Absolute 0.00 <0.10 K/mcL LAB HEMETOLOGY METHOD 03/24/2025 9:53 AM EDT [facility] Blood Venous blood specimen / Unknown Venipuncture / Unknown 03/24/2025 5:23 AM EDT 03/24/2025 8:26 AM EDT us Nico Contreras MD LAB BLOOD ORDERABLES Final Resul t [facility] [address] [place] [address], * (ABNORMAL) Basic metabolic panel (03/24/2025 5:23 AM EDT) Sodium 136 133 - 145 mmol/L LAB CHEMISTRY METHOD 03/24/2025 10:08 AM [facility] Potassium 4.5 3.5 - 5.5 mmol/L LAB CHEMISTRY METHOD 03/24/2025 10:08 AM [facility] Chloride 97 96 - 110 mmol/L LAB CHEMISTRY METHOD 03/24/2025 10:08 AM [facility] CO2 33(H) 21 - 32 mmol/L LAB CHEMISTRY METHOD 03/24/2025 10:08 AM [facility] Anion Gap 6 3 - 11 LAB CHEMISTRY METHOD 03/24/2025 [facility] Glucose 111(H) 70 - 100 mg/dL LAB CHEMISTRY METHOD 03/24/2025 10:08 AM EDT [facility] BUN 23 5 - 25 mg/dL LAB CHEMISTRY METHOD 03/24/2025 10:08 AM EDT [facility] Creatinine 1.10 0.70 - 1.30 mg/dL LAB CHEMISTRY METHOD 03/24/2025 10:08 AM EDT [facility] eGFR 69 >=60 mL/min/1. 73m2 LAB CHEMISTRY METHOD 03/24/2025 10:08 AM EDT [facility] Comment:Calculation based on the Chronic Kidney Disease Epidemiology Collaboration (CKD-EPI) equation refit without adjustment for race. BUN/Creatinine Ratio 20.9 LAB CHEMISTRY METHOD 03/24/2025 10:08 AM EDT [facility] Calcium 8.7 8.5 - 10.5 mg/dL LAB CHEMISTRY METHOD 03/24/2025 10:08 AM EDT [facility] Blood Venous blood specimen / Unknown Venipuncture / Unknown 03/24/2025 5:23 AM EDT 03/24/2025 8:26 AM EDT Nico Contreras MD LAB BLOOD ORDERABLES Final Resul t [facility] [address] [place] [address], * Vitamin B12 and folate (03/17/2025 7:58 AM EDT) Vitamin B-12 303 pcg/mL 03/20/2025 12:53 PM EDT [facility] Folate 6.1 ng/ml 03/20/2025 12:53 PM EDT [facility] Blood Venous blood specimen / Unknown Venipuncture / Unknown 03/17/2025 7:58 AM EDT 03/20/2025 12:33 PM EDT Nico Cnotreras MD LAB BLOOD ORDERABLES Final Resul t Performing Organization Address City/[facility]/ZIP Co de Phone Number [facility] [address] [place] [address], [place] [phone] * Lipid panel with reflex to direct LDL (03/17/2025 7:58 AM EDT) Cholesterol 96 mg/dL 03/20/2025 12:51 PM EDT [facility] Triglycerides 79 mg/dL 03/20/2025 12:51 PM EDT [facility] HDL 26 mg/dL 03/20/2025 12:51 PM EDT [facility] LDL Calculated 54 mg/dL 03/20/2025 12:51 PM EDT [facility] VLDL Cholesterol Palomo 15.8 mg/dL 03/20/2025 12:51 PM EDT [facility] Non HDL Chol. (LDL+VLDL) 70 mg/dL 03/20/2025 12:51 PM EDT [facility] Chol/HDL Ratio 3.7 03/20/2025 12:51 PM EDT [facility] Blood Venous blood specimen / Unknown Venipuncture / Unknown 03/17/2025 7:58 AM EDT 03/20/2025 12:33 PM EDT us Nico Contreras MD LAB BLOOD ORDERABLES Final Resul t [facility] [address] [place] [address], * Vitamin D 25 hydroxy (03/17/2025 7:58 AM EDT) Vit D, 25-Hydroxy 32.6 ng/mL 03/20/2025 12:55 PM EDT [facility] Blood Venous blood specimen / Unknown 03/17/2025 7:58 AM EDT 03/20/2025 12:54 PM EDT us Nico Contreras MD LAB BLOOD ORDERABLES Final Resul t Performing Organization Address [facility] Co de Phone Number [facility] [address] [place] [address], [place] [phone] * Thyroid stimulating hormone (03/17/2025 7:58 AM EDT) TSH 1.75 mcIU/mL 03/20/2025 12:52 PM EDT [facility] Blood Venous blood specimen / Unknown Venipuncture / Unknown 03/17/2025 7:58 AM EDT 03/20/2025 12:33 PM EDT us Nico Contreras MD LAB BLOOD ORDERABLES Final Resul t Performing Organization Address [facility] de Phone Number [facility] [address] [place] [address], [place] [phone] * Hemoglobin A1c (03/17/2025 7:58 AM EDT) Hemoglobin A1C 6.0 % 03/20/2025 12:45 PM EDT [facility] Mean Bld Glu Estim. 126 mg/dL 03/20/2025 12:45 PM EDT [facility] Blood Venous blood specimen / Unknown Venipuncture / Unknown 03/17/2025 7:58 AM EDT 03/20/2025 12:33 PM EDT us Nico Contreras MD LAB BLOOD ORDERABLES Final Resul t Performing Organization Address [facility] Co de Phone Number [facility] [address] [place] [address], [place] [phone] * (ABNORMAL) Comprehensive metabolic panel (03/17/2025 7:58 AM EDT) Sodium 137 mmol/L 03/20/2025 12:50 PM [facility] Potassium 4.7 mmol/L 03/20/2025 12:50 PM [facility] Chloride 102 mmol/L 03/20/2025 12:50 PM [facility] CO2 27 mmol/L 03/20/2025 12:50 PM [facility] Anion Gap 8 03/20/2025 12:50 PM [facility] Glucose 113 mg/dL 03/20/2025 12:50 PM [facility] BUN 30 mg/dL 03/20/2025 12:50 PM [facility] Creatinine 1.11 mg/dL 03/20/2025 12:50 PM [facility] eGFR 68 >=60 mL/min/1. 73m2 03/20/2025 12:50 PM [facility] Comment:Calculation based on the Chronic Kidney Disease Epidemiology Collaboration (CKD-EPI) equation refit without adjustment for race. BUN/Creatinine Ratio 27.0(H) 12.0 - 20.0 03/20/2025 12:50 PM [facility] Calcium 8.5 mg/dL 03/20/2025 12:50 PM [facility] AST (SGOT) 19 unit/L 03/20/2025 12:50 PM [facility] ALT (SGPT) 15 unit/L 03/20/2025 12:50 PM [facility] Alkaline Phosphatase 69 unit/L 03/20/2025 12:50 PM [facility] Total Protein 6.0 g/dL 03/20/2025 12:50 PM [facility] Albumin 2.4 g/dL 03/20/2025 12:50 PM EDT [facility] Total Bilirubin 0.6 mg/dL 12:50 PM EDT [facility] Blood Venous blood specimen / Unknown Venipuncture / Unknown 03/17/2025 7:58 AM EDT 03/20/2025 12:33 PM EDT Nico Contreras MD LAB BLOOD ORDERABLES Final Resul t [facility]) [facility] [address] [place] [address], from Last 3 Months Insurance MEDICARE MEDICAID - [place] Care Teams Insurance Coordinator Relationship Specialty Start Date End Date Nico Contreras MD [address] [place] [address] PCP - General Geriatric Medicine 03/20/25
--- OUTSIDE RECORDS SUMMARY | 2025-05-15 15:18 | XMS_ITS | Encounter Summary ---
Author Organization [facility] Address [address] [place] [address] Care Team Providers Care Electrical Wirer Name Role Phone Nico Contreras MD Primary Care Provider [phone] Encounter Details Date Type Department Care Team (Late st Contact Info) Description 03/23/2025 Lab Requisition [facility] - Main Lab [address] [facility] [place] [address] Nico Contreras MD [address] [place], [place] [id number] Iron deficiency anemia, unspecified; Type 2 diabetes [...] Associated Diagnosis Comments COMPLETE BLOOD COUNT Routine 03/24/2025 5:23 AM EDT Iron deficiency anemia, unspecified Type 2 diabetes mellitus without complications (CMS/HCC V24, CMS/HCC V28) BASIC METABOLIC PANEL Routine 03/24/2025 5:23 AM EDT Iron deficiency anemia, unspecified Type 2 diabetes mellitus without complications (CMS/HCC V24, CMS/HCC V28) documented in this encounter Results * (ABNORMAL) Basic metabolic panel (03/24/2025 5:23 AM EDT) Sodium 136 133 - 145 mmol/L LAB CHEMISTRY METHOD 03/24/2025 10:08 AM [facility] Potassium 4.5 3.5 - 5.5 mmol/L LAB CHEMISTRY METHOD 03/24/2025 10:08 AM [facility] Chloride 97 96 - 110 mmol/L LAB CHEMISTRY METHOD 03/24/2025 10:08 AM [facility] CO2 33(H) 21 - 32 mmol/L LAB CHEMISTRY METHOD 03/24/2025 10:08 AM [facility] Anion Gap 6 3 - 11 LAB CHEMISTRY METHOD 03/24/2025 10:08 AM [facility] Glucose 111(H) 70 - 100 mg/dL LAB CHEMISTRY METHOD 03/24/2025 10:08 AM [facility] BUN 23 5 - 25 mg/dL LAB CHEMISTRY METHOD 03/24/2025 10:08 AM [facility] Creatinine 1.10 0.70 - 1.30 mg/dL LAB CHEMISTRY METHOD 03/24/2025 10:08 AM [facility] eGFR 69 >=60 mL/min/1. 73m2 LAB CHEMISTRY METHOD 03/24/2025 10:08 AM [facility] Comment:Calculation based on the Chronic Kidney Disease Epidemiology Collaboration (CKD-EPI) equation refit without adjustment for race. BUN/Creatinine Ratio 20.9 LAB CHEMISTRY METHOD 03/24/2025 10:08 AM [facility] Calcium 8.7 8.5 - 10.5 mg/dL LAB CHEMISTRY METHOD 03/24/2025 10:08 AM [facility] Blood Venous blood specimen / Unknown Venipuncture / Unknown 03/24/2025 5:23 AM EDT 03/24/2025 8:26 AM EDT us Nico Contreras MD LAB BLOOD ORDERABLES Final Resul t [facility] [address] [place] [address], * (ABNORMAL) Complete blood count (03/24/2025 5:23 AM EDT) [facility] WBC 15.0(H) 4.8 - 10.8 K/mcL LAB HEMETOLOGY METHOD 03/24/2025 9:53 AM [facility] RBC 3.70(L) 4.50 - 5.50 M/mcL LAB HEMETOLOGY METHOD 03/24[facility]25 [facility] Hemoglobin 10.1(L) 13.5 - 17.5 g/dL LAB HEMETOLOGY METHOD 03/24/2025 9:53 AM [facility] Hematocrit 31.9(L) 42.0 - 54.0 % LAB HEMETOLOGY METHOD 03/24/2025 9:53 AM [facility] MCV 86.0 79.0 - 98.0 FL LAB HEMETOLOGY METHOD 03/24/2025 9:53 AM [facility] MCH 27.2 27.0 - 32.0 pcg LAB HEMETOLOGY METHOD 03/24/2025 9:53 AM [facility] MCHC 31.7(L) 32.0 - 37.0 g/dL LAB HEMETOLOGY METHOD 03/24/2025 9:53 AM [facility] RDW 14.5 11.0 - 15.0 % LAB HEMETOLOGY METHOD 03/24/2025 9:53 AM [facility] Platelets 362 130 - 400 K/mcL LAB HEMETOLOGY METHOD 03/24/2025 9:53 AM [facility] MPV 11.2(H) 7.0 - 11.0 FL LAB HEMETOLOGY METHOD 03/24/2025 9:53 AM [facility] NRBC 0.0 <1.0 % LAB HEMETOLOGY METHOD 03/24/2025 9:53 AM EDT [facility] NRBC Absolute 0.00 <0.10 K/mcL LAB HEMETOLOGY METHOD 03/24/2025 9:53 AM EDT [facility] Blood Venous blood specimen / Unknown Venipuncture / Unknown 03/24/2025 5:23 AM EDT 03/24/2025 8:26 AM EDT Nico Contreras MD LAB BLOOD ORDERABLES Final Resul t [facility]) [facility] [address] [place] [address], documented in this encounter Visit Diagnoses Diagnosis Iron deficiency anemia, unspecified Type 2 diabetes mellitus without complications (CMS/HCC V24, CMS/HCC V28) documented in this encounter Care Teams Electrical Wirer Relationship Specialty Start Date End Date Nico Contreras MD [address] [place] [address] [address] [place] [address] PCP - General Geriatric Medicine 03/20/25 documented as of this encounter
--- OUTSIDE RECORDS SUMMARY | 2025-05-15 15:18 | XMS_ITS | Encounter Summary ---
Author Organization [facility] Address [address] [place] [address] Care Team Providers Care Belt Weaver Name Role Phone Nico Contreras MD Primary Care Provider [phone] Encounter Details Date Type Department Care Team (Late st Contact Info) Description 03/30/2025 Lab Requisition [facility] - Main Lab [address] [facility] [place] [address] Nico Contreras MD [address] [place] [address] Iron deficiency anemia, unspecified; Type 2 diabetes [...] on file documented as of this encounter Visit Diagnoses Diagnosis Iron deficiency anemia, unspecified Type 2 diabetes mellitus without complications (CMS/HCC V24, CMS/HCC V28) documented in this encounter Care Teams Belt Weaver Relationship Specialty Start Date End Date Nico Contreras MD [address] [place], [place] [phone] PCP - General Geriatric Medicine 03/20/25 documented as of this encounter
== END 2025-05-15 14:13 | disposition home or self-care (01) ==
LOC: HO.HMCH 13:06
PROVIDERS: PCP Internal Medicine; Visit Provider Internal Medicine
DX: I10 Essential (primary) hypertension (principal); E11.22 Type 2 diabetes mellitus with diabetic chronic kidney disease; N18.31 Chronic kidney disease, stage 3a; E78.00 Pure hypercholesterolemia, unspecified; E55.9 Vitamin D deficiency, unspecified; K21.9 Gastro-esophageal reflux disease without esophagitis; M10.9 Gout, unspecified; L28.2 Other prurigo; M19.011 Primary osteoarthritis, right shoulder; M54.2 Cervicalgia; J30.9 Allergic rhinitis, unspecified

== ENCOUNTER 2025-06-28 14:20 | Outpatient (AMB) | payer MEDICARE, MEDICAID, SELFPAY ==
--- NOTE | 2025-06-28 14:22 | MHC.PC.OV ---
Vital Signs 06/28/25 14:23 Height 5 ft 7 in Weight 158 lb 2 oz BMI 24.8 BP 112/76 Blood Pressure Location Lt brachial Position Sitting Pulse 122 H Pulse Source Pulse Oximeter Pulse Oximetry (%) 98 Oxygen Delivery Method Room Air Intake Visit Reasons: 3mth f/u [employer] Required: No Accompanied by: Self / Same As Patient Allergies No Known Allergies Allergy (Verified 06/28/25 15:01) Medication List - Last Reconciled 06/28/25 by Abdullahi Villela MD acetaminophen ER 1,300 mg PO Q8H PRN allopurinol 100 mg PO DAILY 30 days cetirizine 10 mg PO DAILY PRN cholecalciferol (vitamin D3) 50 mcg PO DAILY 90 days clotrimazole-betamethasone 1-0.05 % 1 appl topical BID PRN cyclobenzaprine 5 mg PO BEDTIME PRN glipizide ER 2.5 mg PO .Every other day lovastatin 20 mg PO DAILY magnesium oxide (MagOx) 400 mg PO DAILY metoprolol tartrate 25 mg PO DAILY mometasone 0.1% 1 appl topical DAILY PRN omeprazole 20 mg PO DAILY@0630 Tobacco use date assessed: 06/28/25 Fall risk assessment: No Falls in past year Last assessed Fall Risk: 06/28/25 Dental Screening Dental Screen Date: 06/28/25 Did you have a dental visit in the last 12 months?: No Did you have a dental problem in the last 6 months where you did not have access to dental care?: No Was dental information given to patient?: No HPI 3mth f/u HPI Details Patient comes in today for his follow up visit He has been seeing ophthalmology for his eye issues and was referred to a cornea specialist (Dr. Peter Colon at [facility]) for stromal keratitis of the right eye States that he already had the required procedure done on his eye a few days ago and will be following up with Dr. Colon again in a couple of days Adds that he's had a recurrent rash over the left side of his head/forehead as well as more recently over his right thigh and right knee areas - states that the rash on his right thigh and knee gets itchy at times Relates that ophthalmology was concerned that the rash over his left forehead area may be due to shingles so they started him empirically on Valtrex and that he just started this a day ago Patient states that other than his current eye issues and his aforementioned rash, he feels okay He denies any headaches or dizziness Denies any chest pains, no increased SOB No nausea/vomiting, no abdominal pain No change in bowel habits noted He had his follow up labs done last month although these appear to be non-fasting labs - to discuss his results Patient is also requesting for a referral to a sealing machine operator to help him get a better understanding of what his diet really should be considering all of his medical issues and is also requesting for a referral to psychiatry/counseling as he has been feeling depressed lately because of his ongoing eye issues [facility] Medical History Vitamin D deficiency Allergic rhinitis Chronic kidney disease, stage III (moderate) Hyperuricemia GERD without esophagitis Pure hypercholesterolemia Diabetes mellitus Essential hypertension Surgical History History of drainage of abscess History of cataract surgery Family History Father Alzheimers disease Mother Diabetes Brother No problems noted. Sister No problems noted. Son No problems noted. Social History Household Members: Spouse and Children Housing: Apartment Do you presently have visiting nurse or other home services: No Alcohol intake: never Patient Tobacco Use Status: Former Tobacco user Tobacco use type: Cigarette e-Cigarette/Vaping Use: Never Used Second Hand Smoke Exposure: No service: No Current occupational status: retired Cognitive needs: No Hearing needs: No Vision needs: Yes Questionnaire PHQ-9 Over the last 2 weeks, how often have you been bothered by any of the following problems? 1. Little interest or pleasure in doing things: not at all 2. Feeling down, depressed, or hopeless: not at all 3. Trouble falling or staying asleep, or sleeping too much: not at all 4. Feeling tired or having little energy: not at all 5. Poor appetite or overeating: not at all 6. Feeling bad about yourself - or that you are a failure or have let yourself or your family down: not at all 7. Trouble concentrating on things, such as reading the newspaper or watching television: not at all 8. Moving or speaking so slowly that other people could have noticed. Or the opposite - being so fidgety or restless that you have been moving around a lot more than usual: not at all 9. Thoughts that you would be better off or of hurting yourself in some way: not at all Total score: 0 Depression Screening Interpretation: Negative Depression Screening Done: Yes 64270 - PHQ-9 Billing: Yes Source: Developed by Drs. Angel Witt, Jayla Brunson, Pranay Sewell and colleagues, with an educational roshan from [employer]. Thrive Questionnaire Date Thrive assessed: 04/21/25 I am a: Patient What is your living situation today?: I have a steady place to live Within the past 12 months, did the food you bought not last and you didn't have the money to get more?: Often true Within the past 12 months, did you worry whether your food would run out before you got money to buy more?: Often true Do you have trouble paying for medicines?: No Do you have trouble getting transportation to medical appointments?: Yes Do you have trouble paying your heating and electricity bill?: No Do you have trouble taking care of your child, family member or friend?: No Do you have trouble with day-to-day activities such as bathing, preparing meals, shopping, managing finances, etc.?: No Are you currently unemployed and looking for a job?: No Are you interested in more education?: No Please select the resources that you would like help with: None Currently or been in a relationship where the following occur: I choose not to answer THRIVE Score: 3 AUDIT C Alcohol Use Questionnaire (AUDIT-C) 1. How often do you have a drink containing alcohol?: Never 3. How often do you have six or more drinks on one occasion?: Never Total Score: 0 Score Reviewed/Action Taken: Yes CHUCK-7 AMB Questionnaire CHUCK-7 Date CHUCK - 7 assessed: 05/15/25 Source: Developed by Drs. Angel Witt, Jayla Brunson, Pranay Sewell and colleagues, with an educational roshan from [employer]. Review of Systems Const Denies chills, Denies fatigue, Denies fever(s) and Denies headache(s) Eyes Reports as per HPI ENT Denies dysphagia, Denies dizziness, Denies otalgia, Denies headache(s), Reports neck pain (especially on the right side - chronic), Denies odynophagia and Denies sore throat Card Denies chest pain, Denies palpitations and Denies dyspnea Resp Denies chest congestion, Denies cough and Denies dyspnea GI Denies abdominal pain, Denies constipation, Denies dysphagia, Denies heartburn, Denies diarrhea, Denies nausea, Denies odynophagia and Denies vomiting Denies difficulty urinating, Denies dysuria, Denies nocturia and Denies urinary frequency Musc Denies back pain, Reports arthralgias (over the right shoulder) and Reports neck pain (especially on the right side - chronic) Skin/Breast Reports rash (over the forehead and the back of his neck and over the R thigh and knee) Neuro Denies dizziness and Denies headache(s) Endo Denies fatigue and Denies palpitations Physical exam (Primary Care) Vital Signs: Last Vital Signs Pulse 122 H 06/28/25 14:23 BP 112/76 06/28/25 14:23 Pulse Ox 98 06/28/25 14:23 Oxygen Delivery Method Room Air 06/28/25 14:23 BMI result Body Mass Index 24.8 Tobacco/Smoking Status: Tobacco use Status Tobacco use date assessed 06/28/25 06/28/25 14:32 Patient Tobacco Use Status Former Tobacco user 06/28/25 14:32 Tobacco use type Cigarette 06/28/25 14:32 e-Cigarette/Vaping Use Never Used 06/28/25 14:32 PHQ-9: PHQ-9 Score PHQ-9: Total score 0 06/28/25 15:02 Depression Screening Interpretation: Negative Thrive Assessment: Date of Thrive Assessment Date Thrive assessed 04/21/25 06/28/25 14:32 Currently or been in a relationship where the following occur: I choose not to answer Const General: no acute distress and alert HENMT Ears: TM's normal bilaterally and EAC's normal Throat: Yes posterior oropharynx normal and Yes tonsils normal (no TP congestion) Eyes Other: Right eye is currently covered with an eye patch Neck Neck: No lymphadenopathy and Yes tender Thyroid: Thyroid normal Resp Auscultation: clear to auscultation bilaterally, no rales and no wheezes Cardio Rate: regular rate Rhythm: regular rhythm Heart sounds: no murmurs GI Palpation (GI): Soft to palpation and nontender Auscultation: normal bowel sounds General: Yes no CVA tenderness Back/Spine/Pelvis Back: no CVA tenderness Cervical Spine: cervical muscular tenderness (on the right side) and Cervical spine tenderness Thoracic/Lumbar Spine: lumbar spinal tenderness (mild) Skin Other: (+) scattered erythematous rash over forehead and on the back of the neck; fewer similar rashes/lesions over the left side of the forehead and over the back of the neck on the left side Extrem General: Yes no clubbing, cyanosis or edema Results Reviewed Results Reviewed: Laboratory Tests 03/14/25 05/15/25 05/15/25 09:30 14:40 14:41 WBC 8.7 Hgb 13.6 L D Hct 43.1 D Plt Count 391 ESR 38 H Sodium 141 Potassium 4.2 Creatinine 1.22 Estimated GFR 58 Random Glucose 128 H Calcium 9.8 D Magnesium 1.5 L AST 23 ALT 14 C-Reactive Protein 1.49 H Ur Specific [place] 1.020 Urine Protein Trace Urine Glucose (UA) Negative Urine Blood Negative Urine Nitrite Negative Ur Leukocyte Esterase Negative Microalb/Creat Ratio 32.8 H Laboratory Tests 05/15/25 14:41 Uric Acid 5.7 Coding Level of Care Code Est Pt Level 4 (85204) Diagnoses Essential hypertension I10 Type 2 diabetes mellitus with stage 3a chronic kidney disease, without long-term current use of insulin E11.22; N18.31 Diabetes mellitus type: type 2 Diabetes mellitus assisted insulin use: without intermediate project manager use Diabetes mellitus complication status: with kidney complications Diabetes mellitus complication detail: with chronic kidney disease Chronic kidney disease stage: stage 3 (moderate) Chronic kidney disease stage 3 subtype: stage 3a (GFR 45-59) Stage 3a chronic kidney disease N18.31 Chronic kidney disease stage 3 subtype: stage 3a (GFR 45-59) Pure hypercholesterolemia E78.00 Vitamin D deficiency E55.9 GERD without esophagitis K21.9 Hyperuricemia E79.0 Pruritic rash L28.2 Primary osteoarthritis, right shoulder M19.011 Neck pain M54.2 Allergic rhinitis, unspecified seasonality, unspecified trigger J30.9 Allergic rhinitis trigger: unspecified Allergic rhinitis seasonality: unspecified Depression, unspecified depression type F32.A Depression Type: unspecified Additional Codes PHQ-9 - 08532 - PHQ-9 Billing: Yes ([id number]) Assessment & Plan Assessment & Plan (1) Essential hypertension: Code(s): I10 - Essential (primary) hypertension Category: Medical Plan: Reinforced low sodium diet - goal is systolic BP of at least 130 to 140 mm or less He was on Lisinopril 40 mg QD, HCTZ 25 mg QD and Amlodipine 10 mg QD for his HTN but all of these were discontinued when he suffered an LEXX back in March 2025 and he has not needed any Rx for high blood pressure since His BP today is WNL Patient is reminded to monitor his blood pressure regularly (2) Diabetes mellitus: Code(s): E11.9 - Type 2 diabetes mellitus without complications Category: Medical Qualifiers: Diabetes mellitus type: type 2 Diabetes mellitus assisted insulin use: without intermediate project manager use Diabetes mellitus complication status: with kidney complications Diabetes mellitus complication detail: with chronic kidney disease Chronic kidney disease stage: stage 3 (moderate) Chronic kidney disease stage 3 subtype: stage 3a (GFR 45-59) Qualified Code(s): E11.22 - Type 2 diabetes mellitus with diabetic chronic kidney disease; N18.31 - Chronic kidney disease, stage 3a Plan: His HgbA1c was at 5.7% when last checked in January 2025 - goal is at least <7.0% Reinforced diabetic diet Continue Glipizide ER 2.5 mg every other day Per request, will refer him to nutrition for dietary counseling (3) Chronic kidney disease, stage III (moderate): Comment: had LEXX in March 2025, with GFR dropping to as low as 14 but renal function has since recovered Code(s): N18.30 - Chronic kidney disease, stage 3 unspecified Category: Medical Qualifiers: Chronic kidney disease stage 3 subtype: stage 3a (GFR 45-59) Qualified Code(s): N18.31 - Chronic kidney disease, stage 3a Plan: He sufffered LEXX back in March 2025, with his GFR dropping down to as low as 14, but his renal function appears to have mostly revovered since Patient is again reminded that the best way to help keep his renal function stable is with control of his diabetes and high blood pressure and with adequate hydration Will continue to monitor his renal function regularly (4) Pure hypercholesterolemia: Code(s): E78.00 - Pure hypercholesterolemia, unspecified Category: Medical Plan: Results of his labs done last month reviewed and discussed with patient although these were non-fasting and did not include his fasting lipids Reinforced low cholesterol diet Continue Lovastatin 20 mg QD Will recheck his labs and fasting lipids in 4 months for follow up (5) Vitamin D deficiency: Code(s): E55.9 - Vitamin D deficiency, unspecified Category: Medical Plan: Continue Vitamin D3 2000 units QD (6) GERD without esophagitis: Code(s): K21.9 - Gastro-esophageal reflux disease without esophagitis Category: Medical Plan: Dietary restrictions reinforced Continue Omeprazole 20 mg QD (7) Hyperuricemia: Code(s): E79.0 - Hyperuricemia without signs of inflammatory arthritis and tophaceous disease Category: Medical Plan: Patient's serum uric acid was normal at 5.7 mg/dl on his labs done last month He denies any recent / acute gout flare ups Reinforced low purine diet Continue Allopurinol 100 mg QD Will recheck his serum uric acid level in 3 months for follow up (8) Pruritic rash: Code(s): L28.2 - Other prurigo Category: Medical Plan: Will try starting him this time on Triamcinolone acetonide 0.5% cream to apply to the rash on his forehead and over the back of his neck as well as on his right thigh/knee areas TID PRN He apparently has been tried on Mometasone 0.1% cream and Lotrisone cream in the past without any relief or improvement Have advised that if his rash still does not respond to his current Rx, will need to consider referring him to dermatology for further evaluation and management (9) Primary osteoarthritis, right shoulder: Code(s): M19.011 - Primary osteoarthritis, right shoulder Category: Medical Plan: X-rays of the right shoulder done back in April 2024 revealed (+) moderate osteoarthritis in the right acromioclavicular joint He was taken OFF Meloxicam 15 mg QD when he had LEXX a few months ago Continue Acetaminophen ER 1300 mg Q 8 to 12 hours PRN for symptomatic relief Have advised him that if his shoulder pain gets worse, we can consider referring him to orthopedics for further evaluation and management and for consideration of cortisone injections, which patient states that he's had in the past (10) Neck pain: Code(s): M54.2 - Cervicalgia Category: Medical Plan: Patient reports that his recent increased neck pain is mostly on the right cervical paraspinal area If his neck pain progresses, will need to send him for cervical spine x-rays for further evaluation Continue Cyclobenzaprine 5 mg Q HS PRN Patient is also advised that he can apply some warm compress to the back of his neck PRN for symptomatic relief (11) Allergic rhinitis: Code(s): J30.9 - Allergic rhinitis, unspecified Category: Medical Qualifiers: Allergic rhinitis trigger: unspecified Allergic rhinitis seasonality: unspecified Qualified Code(s): J30.9 - Allergic rhinitis, unspecified Plan: Continue Cetirizine 10 mg QD PRN (12) Depression: Code(s): F32.A - Depression, unspecified Category: Medical Qualifiers: Depression Type: unspecified Qualified Code(s): F32.A - Depression, unspecified Plan: Per request, will refer him for counseling and to psychiatry for further evaluation and management Plan Follow up in 4 months Orders: Orders Complete Blood Count Auto Diff 4 Months D64.9 - Anemia, unspecified Comprehensive [place]. Panel Fast 4 Months E78.00 - Pure hypercholesterolemia, unspecified Lipid Panel 4 Months E78.00 - Pure hypercholesterolemia, unspecified TSH reflex Free T4 4 Months E78.00 - Pure hypercholesterolemia, unspecified UA CC w/rflx Micro + Cult 4 Months R30.0 - Dysuria Hemoglobin A1c 4 Months E11.9 - Type 2 diabetes mellitus without complications Microalbumin, Random (w Creat) 4 Months E11.9 - Type 2 diabetes mellitus without complications Uric Acid 4 Months M10.9 - Gout, unspecified Vitamin D 25-OH Total 4 Months E55.9 - Vitamin D deficiency, unspecified Vitamin B12 and Folate 4 Months E53.8 - Deficiency of other specified B group vitamins Referrals Psychiatry Referral F32.A - Depression, unspecified Nutrition/Dietitian Referral E11.22 - Type 2 diabetes mellitus with diabetic chronic kidney disease, E78.00 - Pure hypercholesterolemia, unspecified, I10 - Essential (primary) hypertension Medications: New triamcinolone acetonide 0.5% 1 appl topical TID PRN 30 grams 0RF rash
[2025-06-28 14:23] VITALS: BP 112/76; PULSE 122; O2SAT 98; BMI 24.8
--- OUTSIDE RECORDS SUMMARY | 2025-06-28 20:32 | XMS_ITS | Encounter Summary ---
[facility] Address [address] [place] [address] Care Team Providers Care Acoustical Engineer Name Role Phone Nico Contreras MD Primary Care Provider Encounter Details Date Type Department Care Team (Late st Contact Info) Description 03/22/2025 Lab Requisition [facility] - Main Lab 299 [facility] [place] [address] Nico Contreras MD [address] [place] [address] Essential (primary) hypertension Social History Tobacco Use [...] LAB HEMETOLOGY METHOD 03/22/2025 1:42 PM EDT [facility] RBC 4.30(L) 4.50 - 5.50 M/mcL LAB HEMETOLOGY METHOD 03/22/2025 1:42 PM EDT [facility] Hemoglobin 11.5(L) 13.5 - 17.5 g/dL LAB HEMETOLOGY METHOD 03/22/2025 1:42 PM EDT [facility] Hematocrit 37.7(L) 42.0 - 54.0 % LAB HEMETOLOGY METHOD 03/22/2025 1:42 PM EDT [facility] MCV 87.1 79.0 - 98.0 FL LAB HEMETOLOGY METHOD 03/22/2025 1:42 PM EDT [facility] MCH 26.6(L) 27.0 - 32.0 pcg LAB HEMETOLOGY METHOD 03/22/2025 1:42 PM EDT [facility] MCHC 30.5(L) 32.0 - 37.0 g/dL LAB HEMETOLOGY METHOD 03/22/2025 1:42 PM EDT [facility] RDW 14.4 11.0 - 15.0 % LAB HEMETOLOGY METHOD 03/22/2025 1:42 PM EDT [facility] Platelets 564(H) 130 - 400 K/mcL LAB HEMETOLOGY METHOD 03/22/2025 1:42 PM EDT [facility] MPV 11.1(H) 7.0 - 11.0 FL LAB HEMETOLOGY METHOD 03/22/2025 1:42 PM EDT [facility] NRBC 0.0 <1.0 % LAB HEMETOLOGY METHOD 03/22/2025 1:42 PM EDT [facility] NRBC Absolute 0.00 <0.10 K/mcL LAB HEMETOLOGY METHOD 03/22/2025 1:42 PM EDT [facility] Blood Venous blood specimen / Unknown Venipuncture / Unknown 03/22/2025 10:29 AM EDT 03/22/2025 11:07 AM EDT us Nico Contreras MD LAB BLOOD ORDERABLES Final Resul t [facility] [address] [place] [address], documented in this encounter Visit Diagnoses Diagnosis Essential (primary) hypertension Unspecified essential hypertension documented in this encounter Care Teams Acoustical Engineer Relationship Specialty Start Date End Date Nico Contreras MD [address] [place] [address] [address] [place] [address] PCP - General Geriatric Medicine 03/20/25 documented as of this encounter
--- OUTSIDE RECORDS SUMMARY | 2025-06-28 20:32 | XMS_ITS | Clinical Summary ---
Author Organization 299 [facility] Address [address] [place] [address] Phone Care Team Providers Care Assistant Strength Coach Name Role Phone Nico Contreras MD Primary Care Provider [phone] Encounters Date Type Department Care Team Description 03/30/2025 Lab Requisition [facility] - Main Lab [address] [place] [address] Nico Contreras MD Iron deficiency anemia, unspecified; [...] Influencers of Health Screening 03/20/2025 COVID-19 Vaccine (1 - 2023-2 5 season) 2025 Influenza Vaccine (#1) 2025 Diabetes: Blood Sugar Contro l Test (HGBA1C) 09/17/2025 03/17/2025 Diabetes: Annual GFR (Glomerular Filtration Rate) 03/24/2026 03/24/2025, 03/17/2025 Cholesterol Screening (Lipid Panel) [...] unspecified Type 2 diabetes mellitus without complications ([facility] V24, [facility] V28) HEMOGLOBIN A1C Routine 03/17/2025 7:58 AM EDT Vitamin D deficiency, unspecified Vitamin B12 deficiency anemia, unspecified Essential (primary) hypertension Type 2 diabetes mellitus without complications ([facility] V24, [facility] V28) LIPID PANEL WITH REFLEX TO DIRECT LDL Routine 03/17/2025 7:58 AM EDT Vitamin D deficiency, unspecified Vitamin B12 deficiency anemia, unspecified Essential (primary) hypertension Type 2 diabetes mellitus without complications ([facility] V24, [facility] V28) from Last 3 Months or Most Recently Relevant to Health Maintenance Results * (ABNORMAL) Basic metabolic panel (03/24/2025 [...] MD LAB BLOOD ORDERABLES Final Resul t [facility] [address] [place] [address], [place] [phone] * Lipid panel with reflex to direct LDL (03/17/2025 7:58 AM EDT) [facility] Cholesterol 96 mg/dL 03/20/2025 12:51 PM EDT [facility] Triglycerides 79 mg/dL 03/20/2025 12:51 PM EDT [facility] HDL 26 mg/dL 03/20/2025 12:51 PM EDT [facility] LDL Calculated 54 mg/dL 03/20/2025 12:51 PM EDT [facility] VLDL Cholesterol Palomo 15.8 mg/dL 03/20/2025 12:51 PM EDT [facility] Non HDL Chol. (LDL+VLDL) 70 mg/dL 03/20/2025 12:51 PM EDT [facility] Chol/HDL Ratio 3.7 03/20/2025 12:51 PM EDT [facility] Blood Venous blood specimen / Unknown Venipuncture / Unknown 03/17/2025 7:58 AM EDT 03/20/2025 12:33 PM EDT us Nico Contreras MD LAB BLOOD ORDERABLES Final Resul t [facility] [address] [place] [address], [place] [phone] * Hemoglobin A1c (03/17/2025 7:58 AM EDT) [facility] Hemoglobin A1C 6.0 % 03/20/2025 12:45 PM EDT [facility] Mean Bld Glu Estim. 126 mg/dL 03/20/2025 12:45 PM EDT [facility] Blood Venous blood specimen / Unknown Venipuncture / Unknown 03/17/2025 7:58 AM EDT 03/20/2025 12:33 PM EDT Nico Contreras MD LAB BLOOD ORDERABLES Final Resul t [facility] [address] [place] [address], from Last 3 Months or Most Recently Relevant to Health Maintenance Insurance MEDICARE MEDICAID - [place] Care Teams Assistant Strength Coach Relationship Specialty Start Date End Date Nico Contreras MD [address] [facility] [address] [place] [address] PCP - General Geriatric Medicine 03/20/25
--- OUTSIDE RECORDS SUMMARY | 2025-06-28 20:32 | XMS_ITS | Encounter Summary ---
Author Organization Felisa [facility] Address [address] [place] [address] Care Team Providers Care Sinter Feeder Name Role Phone Nico Contreras MD Primary Care Provider [phone] Encounter Details Date Type Department Care Team (Late st Contact Info) Description 03/30/2025 Lab Requisition [facility] - Main Lab 299 [facility] [place] [address] Nico Contreras MD [address] [place] [address] Iron deficiency anemia, unspecified; Type 2 diabetes [...] V28) documented in this encounter Care Teams Sinter Feeder Relationship Specialty Start Date End Date Nico Contreras MD [address] [place], [place] [id number] PCP - General Geriatric Medicine 03/20/25 documented as of this encounter
--- OUTSIDE RECORDS SUMMARY | 2025-06-28 20:32 | XMS_ITS | Encounter Summary ---
Author Organization Felisa [facility] Address [address] [place] [address] Care Team Providers Care Chief Engineer'S Helper Name Role Phone Nico Contreras MD Primary Care Provider [phone] Encounter Details Date Type Department Care Team (Late st Contact Info) Description 03/23/2025 Lab Requisition [facility] - Main Lab 299 [facility] [place] [address] Nico Contreras MD [address] [place], [place] [id number] Iron deficiency anemia, unspecified; Type 2 diabetes [...] mmol/L LAB CHEMISTRY METHOD 03/24/2025 10:08 AM [facility] Potassium 4.5 3.5 - 5.5 mmol/L LAB CHEMISTRY METHOD 03/24/2025 10:08 AM [facility] Chloride 97 96 - 110 mmol/L LAB CHEMISTRY METHOD 03/24/2025 10:08 AM [facility] CO2 33(H) 21 - 32 mmol/L LAB CHEMISTRY METHOD 03/24/2025 10:08 AM [facility] Anion Gap 6 3 - 11 LAB CHEMISTRY METHOD 03/24/2025 10:08 AM [facility] Glucose 111(H) 70 - 100 mg/dL LAB CHEMISTRY METHOD 03/24/2025 10:08 AM [facility] BUN 23 5 - 25 mg/dL LAB CHEMISTRY METHOD 03/24/2025 10:08 AM [facility] Creatinine 1.10 0.70 - 1.30 mg/dL LAB CHEMISTRY METHOD 03/24/2025 10:08 AM [facility] eGFR 69 >=60 mL/min/1. 73m2 LAB CHEMISTRY METHOD 03/24/2025 10:08 AM [facility] Comment:Calculation based on the Chronic Kidney Disease Epidemiology Collaboration (CKD-EPI) equation refit without adjustment for race. BUN/Creatinine Ratio 20.9 LAB CHEMISTRY METHOD 03/24/2025 10:08 AM [facility] Calcium 8.7 8.5 - 10.5 mg/dL LAB CHEMISTRY METHOD 03/24/2025 10:08 AM [facility] Blood Venous blood specimen / Unknown Venipuncture / Unknown 03/24/2025 5:23 AM EDT 03/24/2025 8:26 AM EDT us Nico Contreras MD LAB BLOOD ORDERABLES Final Resul t [facility] [address] [place] [address], * (ABNORMAL) Complete blood count (03/24/2025 5:23 AM EDT) [facility] WBC 15.0(H) 4.8 - 10.8 K/mcL LAB HEMETOLOGY METHOD 03/24/2025 9:53 AM [facility] RBC 3.70(L) 4.50 - 5.50 M/mcL LAB HEMETOLOGY METHOD 03/24/2025 9:[facility] Hemoglobin 10.1(L) 13.5 - 17.5 g/dL LAB HEMETOLOGY METHOD 03/24/2025 9:53 AM [facility] Hematocrit 31.9(L) 42.0 - 54.0 % LAB HEMETOLOGY METHOD 03/24/2025 9:53 AM [facility] MCV 86.0 79.0 - 98.0 FL LAB HEMETOLOGY METHOD 03/24/2025 9:53 AM [facility] MCH 27.2 27.0 - 32.0 pcg LAB HEMETOLOGY METHOD 03/24/2025 9:53 AM [facility] MCHC 31.7(L) 32.0 - 37.0 g/dL LAB HEMETOLOGY METHOD 03/24/2025 9:53 AM [facility] RDW 14.5 11.0 - 15.0 % LAB HEMETOLOGY METHOD 03/24/2025 9:53 AM [facility] Platelets 362 130 - 400 K/mcL LAB HEMETOLOGY METHOD 03/24/2025 9:53 AM [facility] MPV 11.2(H) 7.0 - 11.0 FL LAB HEMETOLOGY METHOD 03/24/2025 9:53 AM [facility] NRBC 0.0 <1.0 % LAB HEMETOLOGY METHOD 03/24/2025 9:53 AM EDT [facility] NRBC Absolute 0.00 <0.10 K/mcL LAB HEMETOLOGY METHOD 03/24/2025 9:53 AM EDT [facility] Blood Venous blood specimen / Unknown Venipuncture / Unknown 03/24/2025 5:23 AM EDT 03/24/2025 8:26 AM EDT Nico Contreras MD LAB BLOOD ORDERABLES Final Resul t [facility]) [facility] [address] [place] [address], documented in this encounter Visit Diagnoses Diagnosis Iron deficiency anemia, unspecified Type 2 diabetes mellitus without complications (CMS/HCC V24, CMS/HCC V28) documented in this encounter Care Teams Chief Engineer'S Helper Relationship Specialty Start Date End Date Nico Contreras MD [address] [place] [address] [address] [place] [address] PCP - General Geriatric Medicine 03/20/25 documented as of this encounter
--- OUTSIDE RECORDS SUMMARY | 2025-06-28 20:32 | XMS_ITS | Encounter Summary ---
Author Organization Felisa [facility] Address [address] [place] [address] Care Team Providers Care Hotel Assistant General Manager Name Role Phone Nico Contreras MD Primary Care Provider [phone] Encounter Details Date Type Department Care Team (Late st Contact Info) Description 03/20/2025 Lab Requisition [facility] - Main Lab [address] [facility] [place] [address] Nico Contreras MD [address] [place] [address] Vitamin D deficiency, unspecified; Vitamin B12 deficiency [...] hypertension Type 2 diabetes mellitus without complications ([facility] V24, [facility] V28) COMPLETE BLOOD COUNT Routine 03/17/2025 7:58 AM EDT Vitamin D deficiency, unspecified Vitamin B12 deficiency anemia, unspecified Essential (primary) hypertension Type 2 diabetes mellitus without complications ([facility] V24, [facility] V28) THYROID STIMULATING HORMONE Routine 03/17/2025 7:58 AM EDT Vitamin D deficiency, unspecified Vitamin B12 deficiency anemia, unspecified Essential (primary) hypertension Type 2 diabetes mellitus without complications ([facility] V24, [facility] V28) HEMOGLOBIN A1C Routine 03/17/2025 7:58 AM EDT Vitamin D deficiency, unspecified Vitamin B12 deficiency anemia, unspecified Essential (primary) hypertension Type 2 diabetes mellitus without complications ([facility] V24, [facility] V28) COMPREHENSIVE METABOLIC PANEL Routine 03/17/2025 7:58 AM EDT Vitamin D deficiency, unspecified Vitamin B12 deficiency anemia, unspecified Essential (primary) hypertension Type 2 diabetes mellitus without complications ([facility] V24, [facility] V28) documented in this encounter Results * Vitamin D 25 hydroxy (03/17/2025 7:58 AM EDT) Vit D, 25-Hydroxy 32.6 ng/mL 03/20/2025 12:55 PM EDT [facility] Blood Venous blood specimen / Unknown 03/17/2025 7:58 AM EDT 03/20/2025 12:54 PM EDT us Nico Contreras MD LAB BLOOD ORDERABLES Final Resul t [facility] [address] [place] [address], * Vitamin B12 and folate (03/17/2025 7:58 AM EDT) Vitamin B-12 303 pcg/mL 03/20/2025 12:53 PM EDT [facility] Folate 6.1 ng/ml 03/20/2025 12:53 PM EDT [facility] Blood Venous blood specimen / Unknown Venipuncture / Unknown 03/17/2025 7:58 AM EDT 03/20/2025 12:33 PM EDT us Nico Contreras MD LAB BLOOD ORDERABLES Final Resul t [facility] [address] [place] [address], [place] [phone] * Thyroid stimulating hormone (03/17/2025 7:58 AM EDT) Pathologist [facility] TSH 1.75 mcIU/mL 03/20/2025 12:52 PM EDT [facility] Blood Venous blood specimen / Unknown Venipuncture / Unknown 03/17/2025 7:58 AM EDT 03/20/2025 12:33 PM EDT us Nico Contreras MD LAB BLOOD ORDERABLES Final Resul t [facility] [address] [place] [address], [place] [phone] * Hemoglobin A1c (03/17/2025 7:58 AM EDT) Pathologist [facility] Hemoglobin A1C 6.0 % 03/20/2025 12:45 PM EDT [facility] Mean Bld Glu Estim. 126 mg/dL 03/20/2025 12:45 PM EDT [facility] Blood Venous blood specimen / Unknown Venipuncture / Unknown 03/17/2025 7:58 AM EDT 03/20/2025 12:33 PM EDT us Nico Contreras MD LAB BLOOD ORDERABLES Final Resul t Performing Organization Address [facility]/ZIP Co de Phone Number [facility] [address] [place] [address], [place] [phone] * Lipid panel with reflex to direct LDL (03/17/2025 7:58 AM EDT) Cholesterol 96 mg/dL 03/20/2025 12:51 PM EDT [facility] Triglycerides 79 mg/dL 03/20/2025 12:51 PM EDT [facility] HDL 26 mg/dL 03/20/2025 12:51 PM EDT [facility] LDL Calculated 54 mg/dL 03/20/2025 12:51 PM EDT [facility] VLDL Cholesterol Palomo 15.8 mg/dL 03/20/2025 12:51 PM EDT [facility] Non HDL Chol. (LDL+VLDL) 70 mg/dL 03/20/2025 12:51 PM EDT [facility] Chol/HDL Ratio 3.7 03/20/2025 12:51 PM EDT [facility] Blood Venous blood specimen / Unknown Venipuncture / Unknown 03/17/2025 7:58 AM EDT 03/20/2025 12:33 PM EDT us Nico Contreras MD LAB BLOOD ORDERABLES Final Resul t Performing Organization Address City/[facility]/ZIP Co de Phone Number [facility] [address] [place] [address], [place] [phone] * (ABNORMAL) Comprehensive metabolic panel (03/17/2025 7:58 AM EDT) Sodium 137 mmol/L 03/20/2025 12:50 PM EDT [facility] Potassium 4.7 mmol/L 03/20/2025 12:50 PM [facility] Chloride 102 mmol/L 03/20/2025 12:50 PM [facility] CO2 27 mmol/L 03/20/2025 12:50 PM [facility] Anion Gap 8 03/20/2025 12:50 PM [facility] Glucose 113 mg/dL 03/20/2025 12:50 PM [facility] BUN 30 mg/dL 03/20/2025 12:50 PM [facility] Creatinine 1.11 mg/dL 03/20/2025 12:50 PM [facility] eGFR 68 >=60 mL/min/1. 73m2 03/20/2025 12:50 PM [facility] Comment:Calculation based on the Chronic Kidney Disease Epidemiology Collaboration (CKD-EPI) equation refit without adjustment for race. BUN/Creatinine Ratio 27.0(H) 12.0 - 20.0 03/20/2025 12:50 PM [facility] Calcium 8.5 mg/dL 03/20/2025 12:50 PM [facility] AST (SGOT) 19 unit/L 03/20/2025 12:50 PM [facility] ALT (SGPT) 15 unit/L 03/20/2025 12:50 PM [facility] Alkaline Phosphatase 69 unit/L 03/20/2025 12:50 PM [facility] Total Protein 6.0 g/dL 03/20/2025 12:50 PM [facility] Albumin 2.4 g/dL 03/20/2025 12:50 PM [facility] Total Bilirubin 0.6 mg/dL 12:50 PM EDT [facility] Blood Venous blood specimen / Unknown Venipuncture / Unknown 03/17/2025 7:58 AM EDT 03/20/2025 12:33 PM EDT us Nico Contreras MD LAB BLOOD ORDERABLES Final Resul t [facility] [address] [place] [address], * Complete blood count (03/17/2025 7:58 AM EDT) WBC 16.6 K/mcL 03/20/2025 12:44 PM EDT [facility] RBC 3.50 M/mcL 03/20/2025 12:44 PM EDT [facility] Hemoglobin 9.5 g/dL 03/20/2025 12:44 PM EDT [facility] Hematocrit 29.5 % 03/20/2025 12:44 PM EDT [facility] MCV 83.6 FL 03/20/2025 12:44 PM EDT [facility] MCH 26.9 pcg 03/20/2025 12:44 PM EDT [facility] MCHC 32.2 g/dL 03/20/2025 12:44 PM EDT [facility] RDW 14.0 % 03/20/2025 12:44 PM EDT [facility] Platelets 41 K/mcL 03/20/2025 12:44 PM EDT [facility] MPV 11.2 FL 03/20/2025 12:44 PM EDT [facility] NRBC 0.0 % 03/20/2025 12:44 PM EDT [facility] NRBC Absolute 0.00 K/mcL 03/20/2025 12:44 PM EDT [facility] Blood Venous blood specimen / Unknown Venipuncture / Unknown 03/17/2025 7:58 AM EDT 03/20/2025 12:33 PM EDT us Nico Contreras MD LAB BLOOD ORDERABLES Final Resul t [facility] [address] [place] [address], documented in this encounter Visit Diagnoses Diagnosis Vitamin D deficiency, unspecified Vitamin B12 deficiency anemia, unspecified Essential (primary) hypertension Unspecified essential hypertension Type 2 diabetes mellitus without complications (CMS/HCC V24, CMS/HCC V28) documented in this encounter Care Teams Hotel Assistant General Manager Relationship Specialty Start Date End Date Nico Contreras MD [address] [place] [address] [address] [place] [address] PCP - General Geriatric Medicine 03/20/25 documented as of this encounter
== END 2025-06-28 15:15 | disposition home or self-care (01) ==
LOC: HO.HMCH 14:20
PROVIDERS: PCP Internal Medicine; Visit Provider Internal Medicine
DX: I10 Essential (primary) hypertension (principal); E11.22 Type 2 diabetes mellitus with diabetic chronic kidney disease; N18.31 Chronic kidney disease, stage 3a; E78.00 Pure hypercholesterolemia, unspecified; E55.9 Vitamin D deficiency, unspecified; K21.9 Gastro-esophageal reflux disease without esophagitis; E79.0 Hyperuricemia without signs of inflammatory arthritis and tophaceous disease; L28.2 Other prurigo; M19.011 Primary osteoarthritis, right shoulder; M54.2 Cervicalgia; J30.9 Allergic rhinitis, unspecified; F32.A Depression, unspecified

== ENCOUNTER → 2025-06-28 14:20 | Outpatient (BNVA) | payer MEDICARE, MEDICAID, SELFPAY | PROVIDERS: PCP Internal Medicine; Visit Provider Internal Medicine | DX: E11.22 Type 2 diabetes mellitus with diabetic chronic kidney disease (principal); I12.9 Hypertensive chronic kidney disease with stage 1 through stage 4 chronic kidney disease, or unspecified chronic kidney disease; N18.31 Chronic kidney disease, stage 3a; E78.00 Pure hypercholesterolemia, unspecified; E55.9 Vitamin D deficiency, unspecified; K21.9 Gastro-esophageal reflux disease without esophagitis; E79.0 Hyperuricemia without signs of inflammatory arthritis and tophaceous disease; L28.2 Other prurigo; M19.011 Primary osteoarthritis, right shoulder; M54.2 Cervicalgia; J30.9 Allergic rhinitis, unspecified; F32.A Depression, unspecified | CPT/HCPCS: 96127; 99212 ==